=== PATIENT | female | born 1940 | race Caucasian/White ===

== ENCOUNTER → 2016-03-13 | Outpatient (CLI) | payer OTHER | END | disposition home or self-care (01) | LOC: C.LABSPEC 14:09 | PROVIDERS: ATTEND Dermatology | DX: B37.2 Candidiasis of skin and nail (principal); L30.4 Erythema intertrigo ==

== ENCOUNTER → 2016-04-10 | Outpatient (CLI) | payer OTHER ==
[2016-04-10 13:35] LABS: BASO % 0.3 %; BASO ABS # 0.02 K/uL (0-0.2); COMPLETE YES; EOS % 1.7 %; HEMATOCRIT 35.7 % (37-47); IG% 0.1 %; LYMPH ABS # 3.34 K/uL (1.2-3.4); MEAN CELL VOLUME 89.5 fL (80-100); MEAN CORPUSCULAR HEMOGLOBIN 29.8 pg (25-34); MEAN CORPUSCULAR HGB CONC 33.3 g/dl (32-36); MONO % 8.5 %; NEUT % 46.4 %; PLATELET COUNT 200 K/uL (130-400); RED BLOOD COUNT 3.99 M/uL (4.2-5.4); WHITE BLOOD COUNT 7.76 K/uL (4.8-10.8)
[2016-04-10 13:47] LABS: ALT/SGPT 53 U/L (12-78); AST/SGOT 51 U/L (15-37); BLOOD UREA NITROGEN 21 mg/dl (7-18); BUN/CREATININE RATIO 15.3 (10-20); CALCIUM 8.8 mg/dl (8.5-10.1); CARBON DIOXIDE 29 mmol/L (21-32); CHLORIDE 100 mmol/L (98-107); GLUCOSE 158 mg/dl (70-99); POTASSIUM 3.7 mmol/L (3.5-5.1); SODIUM 139 mmol/L (136-145)
[2016-04-10 13:50] LABS: ALB/GLOB RATIO 0.7 (0.9-2); ALKALINE PHOSPHATASE 58 U/L (45-117); CHOLESTEROL 118 mg/dl (0-200); HDL CHOLESTEROL 40 mg/dl; LDL CHOLESTEROL CALCULATED 39 mg/dl; TRIGLYCERIDES 195 mg/dl (0-150); VERY LOW DENSITY LIPOPROT CALC 39 mg/dl
[2016-04-10 14:08] LABS: ESTIMATED AVERAGE GLUCOSE 192 mg/dl; HA1C FLAG Normal (Normal)
== END | disposition home or self-care (01) ==
LOC: C.LABMFLN 11:49
PROVIDERS: ATTEND Family Medicine
DX: Z79.01 Long term (current) use of anticoagulants (principal); Z51.81 Encounter for therapeutic drug level monitoring; I10 Essential (primary) hypertension; E11.9 Type 2 diabetes mellitus without complications; L40.9 Psoriasis, unspecified

== ENCOUNTER → 2016-04-19 | Outpatient (CLI) | payer OTHER ==
[2016-04-19 17:51] LABS: HEMATOCRIT 34.7 % (37-47)
[2016-04-19 18:09] LABS: BLOOD UREA NITROGEN 21 mg/dl (7-18); BUN/CREATININE RATIO 14.7 (10-20)
[2016-04-19 18:11] LABS: TOTAL IRON BINDING CAPACITY 355 mcg/dl (250-450)
--- NOTE | 2016-04-25 06:48 | CODING QUERY MEDICAL NECESSITY ---
SUPPORTING DIAGNOSIS NEEDED Dr. Richard, A supporting diagnosis is required for the test/procedure performed on this patient in order for us to be reimbursed by the patient's insurance. Please provide a supporting diagnosis for the following test/procedure listed below next to the test name along with your signature. *If there is no additional diagnosis for this patient that would support the following test/procedure please document that below next to the test/procedure. Test(s)/Procedure(s) that require a supporting diagnosis: * ([id number]) B12 VITAMIN LEVEL DIAGNOSIS: * ([id number]) FOLATE LEVEL DIAGNOSIS: DATE OF SERVICE: 04/19/16 Provider Signature: Date: Thank you Chacorta Mayorga [facility] Information Management Once completed, please kindly fax back to [phone] For questions please call [phone]
== END | disposition home or self-care (01) ==
LOC: C.LABMFLN 08:33
PROVIDERS: ATTEND Family Medicine
DX: D64.9 Anemia, unspecified (principal); N28.9 Disorder of kidney and ureter, unspecified; G62.9 Polyneuropathy, unspecified; I66.9 Occlusion and stenosis of unspecified cerebral artery; Z79.01 Long term (current) use of anticoagulants; Z51.81 Encounter for therapeutic drug level monitoring

== ENCOUNTER → 2016-08-10 | Outpatient (CLI) | payer OTHER ==
[2016-08-10 13:35] LABS: HEMATOCRIT 38.2 % (37-47)
[2016-08-10 14:10] LABS: ESTIMATED AVERAGE GLUCOSE 200 mg/dl; HA1C FLAG Normal (Normal)
[2016-08-10 14:19] LABS: ALT/SGPT 50 U/L (12-78); AST/SGOT 50 U/L (15-37); BLOOD UREA NITROGEN 13 mg/dl (7-18); BUN/CREATININE RATIO 11.7 (10-20); CALCIUM 9.4 mg/dl (8.5-10.1); CARBON DIOXIDE 30 mmol/L (21-32); CHLORIDE 103 mmol/L (98-107); CHOLESTEROL 123 mg/dl (0-200); GLUCOSE 173 mg/dl (70-99); POTASSIUM 3.9 mmol/L (3.5-5.1); SODIUM 139 mmol/L (136-145); TRIGLYCERIDES 250 mg/dl (0-150); VERY LOW DENSITY LIPOPROT CALC 50 mg/dl
[2016-08-10 14:21] LABS: ALB/GLOB RATIO 0.7 (0.9-2); ALKALINE PHOSPHATASE 59 U/L (45-117); CHOLESTEROL/HDL RATIO 3.2; HDL CHOLESTEROL 39 mg/dl; LDL CHOLESTEROL CALCULATED 34 mg/dl
== END | disposition home or self-care (01) ==
LOC: C.LABMFLN 09:46
PROVIDERS: ATTEND Family Medicine
DX: E78.5 Hyperlipidemia, unspecified (principal); I10 Essential (primary) hypertension; E11.9 Type 2 diabetes mellitus without complications; D64.9 Anemia, unspecified; I66.9 Occlusion and stenosis of unspecified cerebral artery; Z79.01 Long term (current) use of anticoagulants

== ENCOUNTER → 2016-12-15 | Outpatient (CLI) | payer OTHER ==
[2016-12-15 13:04] LABS: BASO % 0.4 %; BASO ABS # 0.03 K/uL (0-0.2); COMPLETE YES; EOS % 1.8 %; HEMATOCRIT 33.9 % (37-47); IG% 0.3 %; LYMPH % 40.4 %; LYMPH ABS # 2.95 K/uL (1.2-3.4); MEAN CELL VOLUME 91.9 fL (80-100); MEAN CORPUSCULAR HEMOGLOBIN 30.1 pg (25-34); MEAN CORPUSCULAR HGB CONC 32.7 g/dl (32-36); MEAN PLATELET VOLUME 10.9 fL (7.4-10.4); MONO % 9.8 %; NEUT % 47.3 %; PLATELET COUNT 184 K/uL (130-400); RED BLOOD COUNT 3.69 M/uL (4.2-5.4); WHITE BLOOD COUNT 7.31 K/uL (4.8-10.8)
[2016-12-15 13:27] LABS: ESTIMATED AVERAGE GLUCOSE 194 mg/dl; HA1C FLAG Normal (Normal)
[2016-12-15 13:29] LABS: ALT/SGPT 58 U/L (12-78); AST/SGOT 53 U/L (15-37); BLOOD UREA NITROGEN 17 mg/dl (7-18); BUN/CREATININE RATIO 14.3 (10-20); CALCIUM 8.9 mg/dl (8.5-10.1); CARBON DIOXIDE 30 mmol/L (21-32); CHLORIDE 100 mmol/L (98-107); CHOLESTEROL 106 mg/dl (0-200); CREATININE 1.18 mg/dl (0.60-1.20); GLUCOSE 191 mg/dl (70-99); POTASSIUM 4.1 mmol/L (3.5-5.1); SODIUM 137 mmol/L (136-145)
[2016-12-15 13:31] LABS: RATIO 131.9 mcg/mg (0-30.0)
[2016-12-15 13:31] LABS: ALB/GLOB RATIO 0.7 (0.9-2); ALKALINE PHOSPHATASE 56 U/L (45-117); CHOLESTEROL/HDL RATIO 2.6; HDL CHOLESTEROL 41 mg/dl; LDL CHOLESTEROL CALCULATED 20 mg/dl; TRIGLYCERIDES 224 mg/dl (0-150); VERY LOW DENSITY LIPOPROT CALC 45 mg/dl
== END | disposition home or self-care (01) ==
LOC: C.LABMFLN 09:09
PROVIDERS: ATTEND Family Medicine
DX: I10 Essential (primary) hypertension (principal); E11.9 Type 2 diabetes mellitus without complications; D64.9 Anemia, unspecified

== ENCOUNTER → 2017-02-12 | Outpatient (CLI) | payer OTHER ==
[2017-02-12 18:04] LABS: BASO % 0.3 %; BASO ABS # 0.02 K/uL (0-0.2); EOS % 1.5 %; HEMATOCRIT 36.4 % (37-47); HEMOGLOBIN 11.9 g/dL (12.0-16.0); IG# 0.01 K/uL (0.00-0.02); LYMPH % 35.8 %; LYMPH ABS # 2.43 K/uL (1.2-3.4); MEAN CELL VOLUME 92.6 fL (80-100); MEAN CORPUSCULAR HEMOGLOBIN 30.3 pg (25-34); MEAN CORPUSCULAR HGB CONC 32.7 g/dl (32-36); MEAN PLATELET VOLUME 10.8 fL (7.4-10.4); MONO % 8.4 %; MONO ABS # 0.57 K/uL (0.11-0.59); NEUT % 53.9 %; NEUT ABS # 3.65 K/uL (1.4-6.5); PLATELET COUNT 196 K/uL (130-400); RED CELL DISTRIBUTION WIDTH CV 14.6 % (11.5-14.5); RED CELL DISTRIBUTION WIDTH SD 50.1 fL (36.4-46.3); WHITE BLOOD COUNT 6.78 K/uL (4.8-10.8)
[2017-02-12 18:13] LABS: ALBUMIN 3.3 gm/dl (3.4-5.0); ALT/SGPT 49 U/L (12-78); CREATININE 1.19 mg/dl (0.60-1.20)
[2017-02-12 18:17] LABS: ALKALINE PHOSPHATASE 57 U/L (45-117); AST/SGOT 41 U/L (15-37)
== END | disposition home or self-care (01) ==
LOC: C.LABMFLN 11:55
PROVIDERS: ATTEND Internal Medicine
DX: L40.8 Other psoriasis (principal); M15.0 Primary generalized (osteo)arthritis; Z79.899 Other long term (current) drug therapy

== ENCOUNTER → 2017-03-16 | Outpatient (CLI) | payer OTHER ==
[2017-03-16 17:45] LABS: HEMATOCRIT 34.6 % (37-47); HEMOGLOBIN 11.3 g/dL (12.0-16.0); MEAN CELL VOLUME 92.5 fL (80-100); MEAN CORPUSCULAR HEMOGLOBIN 30.2 pg (25-34); MEAN CORPUSCULAR HGB CONC 32.7 g/dl (32-36); PLATELET COUNT 188 K/uL (130-400); RED CELL DISTRIBUTION WIDTH CV 14.6 % (11.5-14.5); RED CELL DISTRIBUTION WIDTH SD 49.4 fL (36.4-46.3); WHITE BLOOD COUNT 7.04 K/uL (4.8-10.8)
[2017-03-16 18:02] LABS: ALBUMIN 3.2 gm/dl (3.4-5.0); ALT/SGPT 52 U/L (12-78); AST/SGOT 47 U/L (15-37); CREATININE 1.26 mg/dl (0.60-1.20); TOTAL PROTEIN 7.8 gm/dl (6.4-8.2)
[2017-03-16 18:03] LABS: ALKALINE PHOSPHATASE 54 U/L (45-117)
== END | disposition home or self-care (01) ==
LOC: C.LABMFLN 13:02
PROVIDERS: ATTEND Internal Medicine
DX: Z79.899 Other long term (current) drug therapy (principal); L40.8 Other psoriasis

== ENCOUNTER → 2017-04-02 | Outpatient (CLI) | payer OTHER ==
[2017-04-02 12:28] LABS: BASO % 0.3 %; BASO ABS # 0.02 K/uL (0-0.2); EOS ABS # 0.14 K/uL (0-0.5); HEMATOCRIT 36.9 % (37-47); HEMOGLOBIN 11.9 g/dL (12.0-16.0); IG# 0.02 K/uL (0.00-0.02); LYMPH % 41.1 %; LYMPH ABS # 2.82 K/uL (1.2-3.4); MEAN CELL VOLUME 91.8 fL (80-100); MEAN CORPUSCULAR HEMOGLOBIN 29.6 pg (25-34); MEAN CORPUSCULAR HGB CONC 32.2 g/dl (32-36); MEAN PLATELET VOLUME 10.5 fL (7.4-10.4); MONO % 9.3 %; MONO ABS # 0.64 K/uL (0.11-0.59); NEUT ABS # 3.22 K/uL (1.4-6.5); PLATELET COUNT 205 K/uL (130-400); RED CELL DISTRIBUTION WIDTH CV 14.7 % (11.5-14.5); RED CELL DISTRIBUTION WIDTH SD 49.6 fL (36.4-46.3); WHITE BLOOD COUNT 6.86 K/uL (4.8-10.8)
[2017-04-02 12:56] LABS: ALBUMIN 3.3 gm/dl (3.4-5.0); BLOOD UREA NITROGEN 18 mg/dl (7-18); CARBON DIOXIDE 32 mmol/L (21-32); CREATININE 1.28 mg/dl (0.60-1.20); GLUCOSE 159 mg/dl (70-99); POTASSIUM 3.5 mmol/L (3.5-5.1); SODIUM 135 mmol/L (136-145)
[2017-04-02 13:18] LABS: HEMOGLOBIN A1C 7.7 % (4.5-5.6)
== END | disposition home or self-care (01) ==
LOC: C.LABMFLN 09:00
PROVIDERS: ATTEND Family Medicine
DX: I10 Essential (primary) hypertension (principal); E11.9 Type 2 diabetes mellitus without complications; D64.9 Anemia, unspecified

== ENCOUNTER → 2017-06-12 | Outpatient (CLI) | payer OTHER ==
[2017-06-12 19:20] LABS: CREATININE 1.11 mg/dl (0.60-1.20)
== END | disposition home or self-care (01) ==
LOC: C.LABMFLN 12:42
PROVIDERS: ATTEND Internal Medicine
DX: L04.8 Acute lymphadenitis of other sites (principal); Z79.899 Other long term (current) drug therapy

== ENCOUNTER → 2017-09-03 | Outpatient (CLI) | payer OTHER ==
[2017-09-03 12:52] LABS: BASO % 0.3 %; BASO ABS # 0.02 K/uL (0-0.2); EOS % 1.5 %; HEMATOCRIT 33.6 % (37-47); IG# 0.03 K/uL (0.00-0.02); LYMPH % 36.1 %; LYMPH ABS # 2.46 K/uL (1.2-3.4); MEAN CELL VOLUME 94.4 fL (80-100); MEAN CORPUSCULAR HEMOGLOBIN 30.9 pg (25-34); MEAN CORPUSCULAR HGB CONC 32.7 g/dl (32-36); MEAN PLATELET VOLUME 10.9 fL (7.4-10.4); MONO % 11.6 %; MONO ABS # 0.79 K/uL (0.11-0.59); NEUT % 50.1 %; NEUT ABS # 3.41 K/uL (1.4-6.5); PLATELET COUNT 214 K/uL (130-400); RED CELL DISTRIBUTION WIDTH CV 14.8 % (11.5-14.5); RED CELL DISTRIBUTION WIDTH SD 50.8 fL (36.4-46.3); WHITE BLOOD COUNT 6.81 K/uL (4.8-10.8)
[2017-09-03 13:33] LABS: ALBUMIN 3.3 gm/dl (3.4-5.0); ALKALINE PHOSPHATASE 55 U/L (45-117); ALT/SGPT 35 U/L (12-78); AST/SGOT 34 U/L (15-37); BLOOD UREA NITROGEN 18 mg/dl (7-18); CALCIUM 8.5 mg/dl (8.5-10.1); CARBON DIOXIDE 30 mmol/L (21-32); CHOLESTEROL 127 mg/dl (0-200); CREATININE 1.29 mg/dl (0.60-1.20); GLUCOSE 173 mg/dl (70-99); LDL CHOLESTEROL CALCULATED 27 mg/dl; POTASSIUM 3.7 mmol/L (3.5-5.1); SODIUM 136 mmol/L (136-145)
[2017-09-03 13:34] LABS: HEMOGLOBIN A1C 7.6 % (4.5-5.6)
== END | disposition home or self-care (01) ==
LOC: C.LABMFLN 09:33
PROVIDERS: ATTEND Family Medicine
DX: I10 Essential (primary) hypertension (principal); E11.9 Type 2 diabetes mellitus without complications; E78.5 Hyperlipidemia, unspecified; G45.9 Transient cerebral ischemic attack, unspecified

== ENCOUNTER 2024-09-24 06:12 | Inpatient (IN) ==
--- NOTE | 2024-09-05 09:43 | PAT Medication Instructions ---
Medication Instructions Date of Service September 05, 2024 Home Medications Medication Instructions Recorded blood sugar diagnostic (OneTouch #100 ea 02/09/20 Ultra Blue Test Strip) lancets 33 gauge (OneTouch Delica #100 ea 02/09/20 Lancets) nitroglycerin 0.4 mg sublingual 0.4 mg sublingual Q5M PRN chest 02/09/20 tablet (Nitrostat) pain #20 tabs blood sugar diagnostic #50 ea 05/10/20 naloxone 4 mg/actuation nasal spray 4 mg intranasal Q2M #2 ea 07/11/21 multivitamin (Daily Multi-Vitamin 1 tab PO DAILY #90 tabs 02/12/23 tablet) famotidine 20 mg tablet 20 mg PO BID #60 tabs 05/04/23 triamcinolone acetonide 0.1 % 1 applic topical BID PRN skin 05/04/23 topical cream irritation #453.6 grams albuterol sulfate 90 mcg/actuation 2 puff inhalation Q4H PRN 05/14/23 aerosol inhaler shortness of breath or wheezing #8.5 grams Wheelchair (Manual) #1 ea 08/30/23 lorazepam 0.5 mg tablet 0.5 mg PO DAILY PRN anxiety #7 tabs 11/01/23 omeprazole 40 mg capsule,delayed 40 mg PO QAM #90 caps 12/12/23 release fluticasone 500 mcg-salmeterol 50 1 inh inhalation BID #60 ea 02/25/24 mcg/dose blistr powdr for inhalation atorvastatin 40 mg tablet 40 mg PO QPM #90 tabs 03/05/24 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,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,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 #1 ea 04/25/24 (FreeStyle Ledy 3 [place]) nystatin 100,000 unit/gram topical 1 applic topical BID #30 grams 04/25/24 cream colchicine 0.6 mg capsule 0.6 mg PO BID #60 caps 04/28/24 pen needle, diabetic 32 gauge x #100 ea 05/06/24" duloxetine 60 mg capsule,delayed 60 mg PO HS #90 caps 05/14/24 release glimepiride 1 mg tablet 1 mg PO BID #180 tabs 05/21/24 mupirocin 2 % topical ointment 1 applic topical BID #22 grams 05/21/24 torsemide 20 mg tablet 60 mg (3 x 20 mg) PO QAM #270 tabs 05/22/24 losartan 100 mg tablet 100 mg PO QAM #90 tabs 05/23/24 metoprolol tartrate 100 mg tablet 150 mg (1.5 x 100 mg) PO BID #270 05/26/24 tabs mecobalamin (vitamin B12) 1,000 1,000 mcg sublingual DAILY #30 tabs 06/17/24 mcg disintegrating tablet,sublingual cyanocobalamin (vitamin B-12) 1,000 mcg PO DAILY #30 caps 06/18/24 1,000 mcg capsule clonidine HCl 0.2 mg tablet 0.2 mg PO .COMPLEX #270 tabs 06/25/24 diltiazem HCl 240 mg 480 mg (2 x 240 mg) PO QAM #180 06/25/24 capsule,extended release 24 hr caps tramadol 50 mg tablet See Rx Instructions PO QID PRN 07/08/24 severe pain #240 tabs disposable gloves #200 ea 07/16/24 Incontinence pads, medium #60 ea 07/17/24 Rubber Gloves, medium #1 ea 07/17/24 Wipes #200 ea 07/17/24 adult brief, s/m, disposable #150 ea 07/17/24 chucks #30 ea 07/17/24 apixaban 2.5 mg tablet (Eliquis) 2.5 mg PO BID #60 tabs 07/28/24 magnesium oxide 400 mg PO TID #60 caps 07/28/24 diclofenac sodium 1 % topical gel 4 g topical QID PRN L knee pain 08/20/24 #200 grams cholestyramine 4 gram oral powder 4 g PO DAILY #478.8 grams 08/26/24 (Cholestyramine Light) insulin glargine 100 unit/mL (3 16 unit (0.16 mL) subcut HS #15 mL 09/04/24 mL) subcutaneous pen (Lantus Solostar U-100 Insulin) nitroglycerin 0.4 mg sublingual tablet (Nitrostat) 0.4 mg sublingual Q5M PRN naloxone 4 mg/actuation nasal spray 4 mg intranasal Q2M multivitamin (Daily Multi-Vitamin tablet) 1 tab PO DAILY famotidine 20 mg tablet 20 mg PO BID triamcinolone acetonide 0.1 % topical cream 1 applic topical BID PRN albuterol sulfate 90 mcg/actuation aerosol inhaler 2 puff inhalation Q4H PRN ferrous sulfate 325 mg (65 mg iron) tablet (Anita-Time) 325 mg PO DAILY Healthy Beet 1 gummy PO DAILY acetaminophen 325 mg tablet (Tylenol) 325 mg PO TID docusate sodium 100 mg capsule (Colace) 100 mg PO DAILY PRN lorazepam 0.5 mg tablet 0.5 mg PO DAILY PRN metolazone 2.5 mg tablet 2.5 mg PO 3XWK omeprazole 40 mg capsule,delayed release 40 mg PO QAM fluticasone 500 mcg-salmeterol 50 mcg/dose blistr powdr for inhalation 1 inh in halation BID atorvastatin 40 mg tablet 40 mg PO QPM meclizine 25 mg tablet 25 mg PO BID nystatin 100,000 unit/gram topical cream 1 applic topical BID colchicine 0.6 mg capsule 0.6 mg PO BID duloxetine 60 mg capsule,delayed release 60 mg PO HS glimepiride 1 mg tablet 1 mg PO BID mupirocin 2 % topical ointment 1 applic topical BID torsemide 20 mg tablet 60 mg (3 x 20 mg) PO QAM losartan 100 mg tablet 100 mg PO QAM metoprolol tartrate 100 mg tablet 150 mg (1.5 x 100 mg) PO BID mecobalamin (vitamin B12) 1,000 mcg disintegrating tablet,sublingual 1,000 mcg sublingual DAILY cyanocobalamin (vitamin B-12) 1,000 mcg capsule 1,000 mcg PO DAILY clonidine HCl 0.2 mg tablet 0.2 mg PO .COMPLEX diltiazem HCl 240 mg capsule,extended release 24 hr 480 mg (2 x 240 mg) PO QAM tramadol 50 mg tablet See Rx Instructions PO QID PRN apixaban 2.5 mg tablet (Eliquis) 2.5 mg PO BID magnesium oxide 400 mg PO TID diclofenac sodium 1 % topical gel 4 g topical QID PRN cholestyramine 4 gram oral powder (Cholestyramine Light) 4 g PO DAILY allopurinol 100 mg tablet 100 mg PO QAM cholecalciferol (vitamin D3) 25 mcg (1,000 unit) capsule (Vitamin D3) 1,000 unit PO BID ibandronate 150 mg tablet 150 mg PO MONTHLY insulin glargine 100 unit/mL (3 mL) subcutaneous pen (Lantus Solostar U-100 Insulin) 16 unit (0.16 mL) subcut HS potassium chloride 10 mEq capsule,extended release 10 meq PO QAM Continue as directed nitroglycerin 0.4 mg sublingual tablet (Nitrostat) 0.4 mg sublingual Q5M PRN(if needed) naloxone 4 mg/actuation nasal spray 4 mg intranasal Q2M lorazepam 0.5 mg tablet 0.5 mg PO DAILY PRN(if needed) clonidine HCl 0.2 mg tablet 0.2 mg PO .COMPLEX ASK your prescriber and surgeon apixaban 2.5 mg tablet (Eliquis) 2.5 mg PO BID(in order for spinal or epidural anesthesia, Eliquis needs to be stopped 72 hours/3 days before surgery. Please check if okay with doctor that prescribes this to you) STOP taking 2 weeks before surgery (or as soon as possible if surgery is within 2 weeks) Healthy Beet 1 gummy PO DAILY STOP taking 48 hours before surgery cholestyramine 4 gram oral powder (Cholestyramine Light) 4 g PO DAILY STOP taking 24 hours before surgery triamcinolone acetonide 0.1 % topical cream 1 applic topical BID PRN nystatin 100,000 unit/gram topical cream 1 applic topical BID mupirocin 2 % topical ointment 1 applic topical BID diclofenac sodium 1 % topical gel 4 g topical QID PRN DO NOT take the morning of surgery multivitamin (Daily Multi-Vitamin tablet) 1 tab PO DAILY ferrous sulfate 325 mg (65 mg iron) tablet (Anita-Time) 325 mg PO DAILY docusate sodium 100 mg capsule (Colace) 100 mg PO DAILY PRN metolazone 2.5 mg tablet 2.5 mg PO 3XWK colchicine 0.6 mg capsule 0.6 mg PO BID glimepiride 1 mg tablet 1 mg PO BID torsemide 20 mg tablet 60 mg (3 x 20 mg) PO QAM losartan 100 mg tablet 100 mg PO QAM mecobalamin (vitamin B12) 1,000 mcg disintegrating tablet,sublingual 1,000 mcg sublingual DAILY cyanocobalamin (vitamin B-12) 1,000 mcg capsule 1,000 mcg PO DAILY magnesium oxide 400 mg PO TID cholecalciferol (vitamin D3) 25 mcg (1,000 unit) capsule (Vitamin D3) 1,000 unit PO BID ibandronate 150 mg tablet 150 mg PO MONTHLY potassium chloride 10 mEq capsule,extended release 10 meq PO QAM Take morning of surgery With a small sip of water, OTHERWISE NOTHING TO EAT OR DRINK AFTER MIDNIGHT: famotidine 20 mg tablet 20 mg PO BID albuterol sulfate 90 mcg/actuation aerosol inhaler 2 puff inhalation Q4H PRN(use if needed; please bring with you to hospital day of surgery if possible) acetaminophen 325 mg tablet (Tylenol) 325 mg PO TID omeprazole 40 mg capsule,delayed release 40 mg PO QAM fluticasone 500 mcg-salmeterol 50 mcg/dose blistr powdr for inhalation 1 inh inhalation BID meclizine 25 mg tablet 25 mg PO BID metoprolol tartrate 100 mg tablet 150 mg (1.5 x 100 mg) PO BID diltiazem HCl 240 mg capsule,extended release 24 hr 480 mg (2 x 240 mg) PO QAM tramadol 50 mg tablet See Rx Instructions PO QID PRN(if needed) allopurinol 100 mg tablet 100 mg PO QAM Take evening before surgery famotidine 20 mg tablet 20 mg PO BID albuterol sulfate 90 mcg/actuation aerosol inhaler 2 puff inhalation Q4H PRN(if needed) acetaminophen 325 mg tablet (Tylenol) 325 mg PO TID fluticasone 500 mcg-salmeterol 50 mcg/dose blistr powdr for inhalation 1 inh inhalation BID atorvastatin 40 mg tablet 40 mg PO QPM meclizine 25 mg tablet 25 mg PO BID duloxetine 60 mg capsule,delayed release 60 mg PO HS colchicine 0.6 mg capsule 0.6 mg PO BID glimepiride 1 mg tablet 1 mg PO BID metoprolol tartrate 100 mg tablet 150 mg (1.5 x 100 mg) PO BID tramadol 50 mg tablet See Rx Instructions PO QID PRN(if needed) magnesium oxide 400 mg PO TID cholecalciferol (vitamin D3) 25 mcg (1,000 unit) capsule (Vitamin D3) 1,000 unit PO BID insulin glargine 100 unit/mL (3 mL) subcutaneous pen (Lantus Solostar U-100 Insulin) 16 unit (0.16 mL) subcut HS Other Notes If you have any questions please call us at [phone] or [phone] or [phone] or [phone]
--- NOTE | 2024-09-10 14:27 | Anesthesiology Consultation ---
Date of Service September 10, 2024 Assessment & Plan (1) Encounter for pre-operative examination: Chart Review Chart Review: Acceptable Risk for Surgery (pending PCP clearance, preop UA, and final cardio clearance with response re: CXR ) and Patient seen in Pre Admission Testing - Awaiting PCP clearance 09/16/24 ([place]) - Awaiting UA (could not void at PAT appt- will be taking UA to PCP appt) - Awaiting final cardio clearance (cardio awaiting results of 09/10/24 nuclear stress test) ([place] cardio)- workload note sent regarding preop CXR and 09/10/24 stress test - Check BSG AM DOS Dexcom monitor to UE - Patient is NOT an OPJ candidate - currently 23 hour obs Per PAT appt on 09/10/24, no recent illness/disease exposures, illness related symptoms, or recent illness/disease positive tests. Will leave to surgeon's discretion if preop Covid testing needed Cardiology visit 08/26/24= "here today for routine cardiology follow up.. admitted to [facility] in March after sustaining a fall... scheduled for knee replacement next month... Atrial fibrillation. Permanent... on Eliquis... HR with pEF: Has chronic lower extremity edema. Otherwise, does not appear to be significant hypervolemic... HTN: BP adequately controlled... Dyslipidemia... Edema: Chronic. Preop: Scheduled for knee replacement next month. She is not having angina, however, she has a limited functional status. Will perform ischemic evaluation with nuclear stress test prior to elective surgery. Pending results of the stress test, she is at an acceptable risk for surgery." Teaching & Discussion Pre-Anesthesia Teaching/Discussion Notes: Instructed NPO after midnight before surgery,except medications with 15 cc of water. Medication instructions provided according to the PAT guidelines. History Surgery Operation Date: 09/24/24 07:15 Proposed Procedures p Left Total Knee Arthroplasty - Sidney Joaquin MD Height/Weight Height: 5 ft 2 in Weight: 70.7 kg Allergies Allergy/AdvReac Type Severity Reaction Status Date / Time oxycodone Allergy Severe Generalized Verified 09/04/24 10:21 rash sulfamethoxazole Allergy Severe weakness, Verified 09/04/24 10:21 [From Bactrim] hallucinations trimethoprim [From Bactrim] Allergy Severe weakness, Verified 09/04/24 10:21 hallucinations adhesive tape Allergy Intermediate Rash Verified 09/04/24 10:21 gabapentin [From Neurontin] Allergy Intermediate leg Verified 09/04/24 10:21 swelling lisinopril Allergy Intermediate Rash Verified 09/04/24 10:21 fentanyl Allergy Unknown Unknown Verified 09/04/24 10:21 Medications Home Medications Medication Instructions Recorded Confirmed Last Taken blood sugar diagnostic (OneTouch #100 ea 02/09/20 08/26/24 Unknown Ultra Blue Test Strip) lancets 33 gauge (OneTouch Delica #100 ea 02/09/20 08/26/24 Unknown Lancets) nitroglycerin 0.4 mg sublingual 0.4 mg sublingual Q5M PRN chest 02/09/20 09/04/24 Unknown tablet (Nitrostat) pain #20 tabs blood sugar diagnostic #50 ea 05/10/20 08/26/24 Unknown naloxone 4 mg/actuation nasal spray 4 mg intranasal Q2M #2 ea 07/11/21 09/04/24 Unknown multivitamin (Daily Multi-Vitamin 1 tab PO DAILY #90 tabs 02/12/23 09/04/24 Unknown tablet) famotidine 20 mg tablet 20 mg PO BID #60 tabs 05/04/23 09/04/24 Unknown triamcinolone acetonide 0.1 % 1 applic topical BID PRN skin 05/04/23 09/04/24 Unknown topical cream irritation #453.6 grams albuterol sulfate 90 mcg/actuation 2 puff inhalation Q4H PRN 05/14/23 09/04/24 Unknown aerosol inhaler shortness of breath or wheezing #8.5 grams Wheelchair (Manual) #1 ea 08/30/23 08/26/24 Unknown ferrous sulfate 325 mg (65 mg 325 mg PO DAILY 09/04/23 09/04/24 Unknown iron) tablet (Anita-Time) Healthy Beet 1 gummy PO DAILY 09/28/23 09/04/24 Unknown acetaminophen 325 mg tablet 325 mg PO TID 09/28/23 09/04/24 Unknown (Tylenol) docusate sodium 100 mg capsule 100 mg PO DAILY PRN Constipation 09/28/23 09/04/24 Unknown (Colace) lorazepam 0.5 mg tablet 0.5 mg PO DAILY PRN anxiety #7 tabs 11/01/23 09/04/24 Unknown metolazone 2.5 mg tablet 2.5 mg PO 3XWK 11/02/23 09/04/24 Unknown omeprazole 40 mg capsule,delayed 40 mg PO QAM #90 caps 12/12/23 09/04/24 Unknown release fluticasone 500 mcg-salmeterol 50 1 inh inhalation BID #60 ea 02/25/24 09/04/24 Unknown mcg/dose blistr powdr for inhalation atorvastatin 40 mg tablet 40 mg PO QPM #90 tabs 03/05/24 09/04/24 Unknown 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,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,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 04/25/24 08/26/24 Unknown (FreeStyle Ledy 3 [place]) meclizine 25 mg tablet 25 mg PO BID vertigo 04/25/24 09/04/24 Unknown nystatin 100,000 unit/gram topical 1 applic topical BID #30 grams 04/25/24 09/04/24 Unknown cream colchicine 0.6 mg capsule 0.6 mg PO BID #60 caps 04/28/24 09/04/24 Unknown 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 sensor (FreeStyle 04/30/24 08/26/24 Unknown Ledy 3 Sensor device) pen needle, diabetic 32 gauge x #100 ea 05/06/24 08/26/24 Unknown 5/32" duloxetine 60 mg capsule,delayed 60 mg PO HS #90 caps 05/14/24 09/04/24 Unknown release glimepiride 1 mg tablet 1 mg PO BID #180 tabs 05/21/24 09/04/24 Unknown mupirocin 2 % topical ointment 1 applic topical BID #22 grams 05/21/24 09/04/24 Unknown torsemide 20 mg tablet 60 mg (3 x 20 mg) PO QAM #270 tabs 05/22/24 09/04/24 Unknown losartan 100 mg tablet 100 mg PO QAM #90 tabs 05/23/24 09/04/24 Unknown metoprolol tartrate 100 mg tablet 150 mg (1.5 x 100 mg) PO BID #270 05/26/24 09/04/24 Unknown tabs mecobalamin (vitamin B12) 1,000 1,000 mcg sublingual DAILY #30 tabs 06/17/24 09/04/24 Unknown mcg disintegrating tablet,sublingual cyanocobalamin (vitamin B-12) 1,000 mcg PO DAILY #30 caps 06/18/24 09/04/24 Unknown 1,000 mcg capsule clonidine HCl 0.2 mg tablet 0.2 mg PO .COMPLEX #270 tabs 06/25/24 09/04/24 Unknown diltiazem HCl 240 mg 480 mg (2 x 240 mg) PO QAM #180 06/25/24 09/04/24 Unknown capsule,extended release 24 hr caps tramadol 50 mg tablet See Rx Instructions PO QID PRN 07/08/24 09/04/24 Unknown severe pain #240 tabs disposable gloves #200 ea 07/16/24 08/26/24 Unknown Incontinence pads, medium #60 ea 07/17/24 08/26/24 Unknown Rubber Gloves, medium #1 ea 07/17/24 08/26/24 Unknown Wipes #200 ea 07/17/24 08/26/24 Unknown adult brief, s/m, disposable #150 ea 07/17/24 08/26/24 Unknown chucks #30 ea 07/17/24 08/26/24 Unknown apixaban 2.5 mg tablet (Eliquis) 2.5 mg PO BID #60 tabs 07/28/24 09/04/24 Unknown magnesium oxide 400 mg PO TID #60 caps 07/28/24 09/04/24 Unknown diclofenac sodium 1 % topical gel 4 g topical QID PRN L knee pain 08/20/24 09/04/24 Unknown #200 grams cholestyramine 4 gram oral powder 4 g PO DAILY #478.8 grams 08/26/24 09/04/24 Unknown (Cholestyramine Light) allopurinol 100 mg tablet 100 mg PO QAM 09/04/24 09/04/24 Unknown cholecalciferol (vitamin D3) 25 1,000 unit PO BID 09/04/24 09/04/24 Unknown mcg (1,000 unit) capsule (Vitamin D3) ibandronate 150 mg tablet 150 mg PO MONTHLY 09/04/24 09/04/24 Unknown insulin glargine 100 unit/mL (3 16 unit (0.16 mL) subcut HS #15 mL 09/04/24 Unknown mL) subcutaneous pen (Lantus Solostar U-100 Insulin) potassium chloride 10 mEq 10 meq PO QAM 09/04/24 09/04/24 Unknown capsule,extended release Past Medical History Medical History (Updated 09/10/24 @ 16:08 by Tiffanie Marquez PA-C) (HFpEF) heart failure with preserved ejection fraction EF 50-54% on 08/2023 ECHO Ambulatory dysfunction uses walker or WC (no falls since 03/2024) Asthma rare res inh use breathing stable and controlled Atrial fibrillation no pacer, med controlled > Dr. 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 Bilateral lower extremity edema Compression deformity of vertebra With history of L1 compression fracture T10 compression fracture (new from 11/01/23) noted on 04/02/24 CT scan Controlled type 2 diabetes mellitus with diabetic neuropathy GERD (gastroesophageal reflux disease) well controlled and stable Gout no recent issues History of stroke 2001 > no residual issues HTN (hypertension) Hx MRSA infection 12/2023 > left great toe > resolved Hyperlipemia Iron deficiency anemia [place] disease Usually in LEs (well controlled); can occur in UEs (stable) Osteoporosis Sacral fracture (04/02/24) Sacral/pelvic fracture from a fall- no surgery needed No current issues Exercise / Class Metabolic Activity III < 4 Walking/Shop/Light housework (no chest pain or SOB with short distance ambulation with walker; limited activity; usually uses only wheelchair or walker ) Past Family History Family History Father Myocardial infarction Hx of CABG Mother Alzheimer disease Denies family history of Ovarian cancer Prostate cancer Breast cancer Colorectal cancer Past Surgical History Surgical History H/O right hemicolectomy History of appendectomy History of cardiac cath remote hx > no stents History of cataract surgery bilateral History of cholecystectomy History of colonoscopy History of hysterectomy History of lumbar surgery no fusion History of surgery on arm nerve surgery left History of tonsillectomy and adenoidectomy History of tooth extraction Hx of breast reduction, elective Hx of cervical spine surgery ROM up and down is very limited per pt > unsure of numbers Hx of oral surgery (01/16/23) Excision of Ulcer and Fibroma of Right Lower Lip(Right) - Peter Call, DMD Past Anesthesia History No Hx of Anesthesia Complications (with exception to slow to wake (just groggy- no reintubation or ICU stay) ) and No Family Hx of Anesthesia Complications (with exception to daughter- PONV ) History of PONV History of PONV (presumed ) and Hx of Motion Sickness Social History Smoking Status: Never smoker Do You Dip or Chew Tobacco: No Hx Alcohol Use: No Hx Substance Use: No substance use type: does not use Review of Systems - Hx of snoring- CHAR many years ago- on CPAP - Chronic occ SOB/WILSON- stable/mild per patient Patient denies chest pain, cough, wheezing, palpitations. No hx of seizures, NV. No hx of blood clots or blood transfusions Physical Exam Vital Signs VITALS BP 114/74 P 67 TEMP 98.2 SP02 92% on RA RESP 16 Constitutional no acute distress ENMT Mouth: no TMJ clicking Thyromental Distance: > or= 3.5 Finger Breadths (3.0) Mallampati Class: IV Top front teeth permanent implant Neck + limited neck extension (extension ) Respiratory normal respiratory effort; no respiratory distress Auscultation: lungs clear to auscultation bilaterally; no wheezes Cardiovascular Heart Sounds: + murmur (faint) Vessels: no carotid bruit Irregularly irregular rhythm rate controlled II-III cardiac murmur Musculoskeletal Spine: + pain with cervical ROM Extremities: extremities normal to inspection Psychiatric Orientation: alert Lab Results Anesthesia Preop Results Results Anesthesia Widget: WBC 7.12 K/ul (4.8-10.8) 09/10/24 Hgb 9.1 g/dl (12.0-16.0) L 09/10/24 Hct 29.3 % (37.0-47.0) L 09/10/24 Plt 190 K/uL (130-400) 09/10/24 Na 138 mmol/L (136-145) 09/10/24 K 4.8 mmol/L (3.5-5.1) 09/10/24 Cl 103 mmol/L (98-107) 09/10/24 CO2 33 mmol/L (21-32) H 09/10/24 BUN 19 mg/dl (6-23) 09/10/24 Creat 1.53 mg/dl (0.6-1.2) H 09/10/24 Glucose Level 148 mg/dl (70-99(Fasting)) H 09/10/24 PT 11.9 Seconds (9.0-12.0) 09/10/24 PTT 30 Seconds (21-31) 09/10/24 INR 1.1 (0.9-1.1) 09/10/24 HA1c 5.5 % (4.5-5.6) 09/10/24 Blood Type A Positive 09/10/24 Antibody Screen NEGATIVE 09/10/24 Testing Laboratory Results Anemia - chronic- relatively stable since 02/2024- seeing PCP for preop visit next week; surgeon's office informed of anemia Elevated creatinine chronic and stable Electrocardiogram Date: 09/10/24 Findings: + AFIB @ (64bpm) Low voltage QRS Chest X-Ray Date: 09/10/24 FINDINGS: Stable prominent cardiomegaly with mild pulmonary vascular congestion. There is hazy opacity in the lung bases with blunting of the costophrenic angles. No pneumothorax. IMPRESSION: CHF with small bilateral pleural effusions and mild associated lung base consolidation. (Will send cardiology workload message) Echocardiogram Date: 08/17/23 EF: 50-54% LV Function: normal Other Findings: + diastolic dysfunction; no LVH RV cavity size and systolic function normal Severe LAE Moderate AV sclerosis, aortic stenosis is absent Moderate MR Moderate TR Estimated PASP is 44mmHg Stress Test Date: 09/10/24 Type: nuclear Myocardial perfusion imaging findings: 1. Raw data analysis demonstrates increased GI uptake and patient was imaged with arms at side. There is attenuation secondary to the arm position which varies between rest and stress. Study is technically limited. 2. Gated myocardial perfusion imaging demonstrates normal size LV, normal wall motion, and normal calculated EF of 58%. 3. At rest there is a mild intensity perfusion defect involving the mid to distal lateral and inferolateral myocardium. With Lexiscan infusion these defects resolved. This is most consistent with artifact from her arm placement. There is no evidence of myocardial ischemia or infarction. 4. Study is limited secondary to artifact. It is considered low risk for myocardial ischemia. No prior studies for comparison. Other Testing Holter monitor 12/21/23= Atrial fibrillation with average HR of 107bpm (52-216 bpm) HR >200 bpm at 0740am on 12/16/23 No significant pause Rare PVCs No reported symptoms
--- NOTE | 2024-09-22 13:01 | History & Physical Report ---
Date of Service September 22, 2024 Assessment & Plan (1) Osteoarthritis of left knee: Plan: Severe end-stage patellofemoral osteoarthritis of the left knee and less painful but advanced end-stage osteoarthritis of the right knee as well. Left knee is most symptomatic most painful and has the worst range of motion. Patient's had multiple injections and conservative management for extended period of time. Patient and family want to proceed with knee replacement. She has iron deficiency anemia and medical physicians feel that her hemoglobin will not improved from current status. She was medically cleared to proceed with the surgery. Osteoarthritis type: primary Qualified Code(s): M17.12 - Unilateral primary osteoarthritis, left knee (2) Wheeler disease: History of Present Illness Chief Complaint: Chronic bilateral knee pain left greater than right Primary Care Provider: Dustin Richard MD 84-year-old female with severe end-stage bilateral knee osteoarthritis left knee has more severe bone loss in the patellofemoral joint with lateral tracking patella and bone loss on both sides of the joint with maintained tibiofemoral joint spaces. The right knee is [id number] in the patellofemoral and medial compartment. Patient denies headaches, sweats, fevers, chills, double vision, blurred vision, cough, sore throat, dysphagia, chest pain, wheezing, n/v/d/c, numbness, tingling, fatigue, urinary symptoms, mood disorders. ROS positive for hypertension, high cholesterol, stroke, shortness of breath when lying flat, diabetic on insulin, chronic iron deficiency anemia. Allergies Allergy/AdvReac Type Severity Reaction Status Date / Time oxycodone Allergy Severe Generalized Verified 09/04/24 10:21 rash sulfamethoxazole Allergy Severe weakness, Verified 09/04/24 10:21 [From Bactrim] hallucinations trimethoprim [From Bactrim] Allergy Severe weakness, Verified 09/04/24 10:21 hallucinations adhesive tape Allergy Intermediate Rash Verified 09/04/24 10:21 gabapentin [From Neurontin] Allergy Intermediate leg Verified 09/04/24 10:21 swelling lisinopril Allergy Intermediate Rash Verified 09/04/24 10:21 fentanyl Allergy Unknown Unknown Verified 09/04/24 10:21 Home Medications Medication Instructions Recorded Confirmed Type blood sugar diagnostic (PayDragonuch #100 ea 02/09/20 09/16/24 Rx Ultra Blue Test Strip) lancets 33 gauge (BonushTouch Delica #100 ea 02/09/20 09/16/24 Rx Lancets) nitroglycerin 0.4 mg sublingual 0.4 mg sublingual Q5M PRN chest 02/09/20 09/16/24 Rx tablet (Nitrostat) pain #20 tabs blood sugar diagnostic #50 ea 05/10/20 09/16/24 Rx naloxone 4 mg/actuation nasal spray 4 mg intranasal Q2M #2 ea 07/11/21 09/16/24 Rx multivitamin (Daily Multi-Vitamin 1 tab PO DAILY #90 tabs 02/12/23 09/16/24 Rx tablet) famotidine 20 mg tablet 20 mg PO BID #60 tabs 05/04/23 09/16/24 Rx triamcinolone acetonide 0.1 % 1 applic topical BID PRN skin 05/04/23 09/16/24 Rx topical cream irritation #453.6 grams albuterol sulfate 90 mcg/actuation 2 puff inhalation Q4H PRN 05/14/23 09/16/24 Rx aerosol inhaler shortness of breath or wheezing #8.5 grams Wheelchair (Manual) #1 ea 08/30/23 09/16/24 Rx ferrous sulfate 325 mg (65 mg 325 mg PO DAILY 09/04/23 09/16/24 History iron) tablet (Anita-Time) Healthy Beet 1 gummy PO DAILY 09/28/23 09/16/24 History acetaminophen 325 mg tablet 325 mg PO TID 09/28/23 09/16/24 History (Tylenol) docusate sodium 100 mg capsule 100 mg PO DAILY PRN Constipation 09/28/23 09/16/24 History (Colace) lorazepam 0.5 mg tablet 0.5 mg PO DAILY PRN anxiety #7 tabs 11/01/23 09/16/24 Rx metolazone 2.5 mg tablet 2.5 mg PO 3XWK 11/02/23 09/16/24 History omeprazole 40 mg capsule,delayed 40 mg PO QAM #90 caps 12/12/23 09/16/24 Rx release fluticasone 500 mcg-salmeterol 50 1 inh inhalation BID #60 ea 02/25/24 09/16/24 Rx mcg/dose blistr powdr for inhalation atorvastatin 40 mg tablet 40 mg PO QPM #90 tabs 03/05/24 09/16/24 Rx 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,director [place],cont #1 ea 04/25/24 09/16/24 Rx (FreeStyle Ledy 3 [place]) meclizine 25 mg tablet 25 mg PO BID vertigo 04/25/24 09/16/24 History nystatin 100,000 unit/gram topical 1 applic topical BID #30 grams 04/25/24 09/16/24 Rx cream colchicine 0.6 mg capsule 0.6 mg PO BID #60 caps 04/28/24 09/16/24 Rx 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 sensor (FreeStyle 04/30/24 09/16/24 History Ledy 3 Sensor device) pen needle, diabetic 32 gauge x #100 ea 05/06/24 09/16/24 Rx " duloxetine 60 mg capsule,delayed 60 mg PO HS #90 caps 05/14/24 09/16/24 Rx release glimepiride 1 mg tablet 1 mg PO BID #180 tabs 05/21/24 09/16/24 Rx mupirocin 2 % topical ointment 1 applic topical BID #22 grams 05/21/24 09/16/24 Rx losartan 100 mg tablet 100 mg PO QAM #90 tabs 05/23/24 09/16/24 Rx metoprolol tartrate 100 mg tablet 150 mg (1.5 x 100 mg) PO BID #270 05/26/24 09/16/24 Rx tabs mecobalamin (vitamin B12) 1,000 1,000 mcg sublingual DAILY #30 tabs 06/17/24 09/16/24 Rx mcg disintegrating tablet,sublingual cyanocobalamin (vitamin B-12) 1,000 mcg PO DAILY #30 caps 06/18/24 09/16/24 Rx 1,000 mcg capsule clonidine HCl 0.2 mg tablet 0.2 mg PO .COMPLEX #270 tabs 06/25/24 09/16/24 Rx diltiazem HCl 240 mg 480 mg (2 x 240 mg) PO QAM #180 06/25/24 09/16/24 Rx capsule,extended release 24 hr caps tramadol 50 mg tablet See Rx Instructions PO QID PRN 07/08/24 09/16/24 Rx severe pain #240 tabs disposable gloves #200 ea 07/16/24 09/16/24 Rx Incontinence pads, medium #60 ea 07/17/24 09/16/24 Rx Rubber Gloves, medium #1 ea 07/17/24 09/16/24 Rx Wipes #200 ea 07/17/24 09/16/24 Rx adult brief, s/m, disposable #150 ea 07/17/24 09/16/24 Rx chucks #30 ea 07/17/24 09/16/24 Rx apixaban 2.5 mg tablet (Eliquis) 2.5 mg PO BID #60 tabs 07/28/24 09/16/24 Rx magnesium oxide 400 mg PO TID #60 caps 07/28/24 09/16/24 Rx diclofenac sodium 1 % topical gel 4 g topical QID PRN L knee pain 08/20/24 09/16/24 Rx #200 grams allopurinol 100 mg tablet 100 mg PO QAM 09/04/24 09/16/24 History cholecalciferol (vitamin D3) 25 1,000 unit PO BID 09/04/24 09/16/24 History mcg (1,000 unit) capsule (Vitamin D3) ibandronate 150 mg tablet 150 mg PO MONTHLY 09/04/24 09/16/24 History insulin glargine 100 unit/mL (3 16 unit (0.16 mL) subcut HS #15 mL 09/04/24 09/16/24 Rx mL) subcutaneous pen (Lantus Solostar U-100 Insulin) cholestyramine 4 gram oral powder 4 g PO BID #960 grams 09/16/24 09/16/24 Rx (Cholestyramine Light) torsemide 20 mg tablet 60 mg (3 x 20 mg) PO .COMPLEX #450 09/16/24 09/16/24 Rx tabs potassium chloride 10 mEq 20 meq (2 x 10 mEq) PO QAM #180 09/17/24 Rx capsule,extended release caps cefuroxime axetil 500 mg tablet 500 mg PO BID 5 days #10 tabs 09/18/24 Rx Past Med/Surg History Problem List (Updated 09/22/24 @ 13:09 by Sidney Joaquin MD) UTI (urinary tract infection) (HFpEF) heart failure with preserved ejection fraction Chronic anemia Osteoarthritis of left knee Encounter for pre-operative examination Injury of left great toe Right foot injury Mild cognitive impairment Gout Type 2 diabetes mellitus treated with insulin Atrial fibrillation, permanent Dyspnea and respiratory abnormalities Pain of left hip Hypokalemia (Acute) Ambulatory dysfunction Atopic dermatitis Venous insufficiency Hypomagnesemia Neurologic gait dysfunction Falling Chronic low back pain Bilateral primary osteoarthritis of knee Osteoporosis Leg edema Right shoulder pain Radiculitis, cervical Orthopnea Anticoagulant long-term use Vitamin D deficiency Lumbar spinal stenosis Lumbar radiculopathy Cervical radiculopathy Cerebral vascular disease (Acute) Dyslipidemia (Acute) Benign essential hypertension (Acute) Iron deficiency anemia (Acute) Psoriasis (Acute) Medical History Sacral fracture (04/02/24) Sacral/pelvic fracture from a fall- no surgery needed No current issues Compression deformity of vertebra With history of L1 compression fracture T10 compression fracture (new from 11/01/23) noted on 04/02/24 CT scan Ambulatory dysfunction uses walker or WC (no falls since 03/2024) Wheeler disease Usually in LEs (well controlled); can occur in UEs (stable) Bilateral lower extremity edema (HFpEF) heart failure with preserved ejection fraction EF 50-54% on 08/2023 ECHO Iron deficiency anemia Hx MRSA infection 12/2023 > left great toe > resolved Hyperlipemia HTN (hypertension) Gout no recent issues Osteoporosis Atrial fibrillation no pacer, med controlled > Dr. 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 History of stroke 2001 > no residual issues GERD (gastroesophageal reflux disease) well controlled and stable Asthma rare res inh use breathing stable and controlled Controlled type 2 diabetes mellitus with diabetic neuropathy Surgical History Hx of oral surgery (01/16/23) Excision of Ulcer and Fibroma of Right Lower Lip(Right) - Peter Call, DMD History of colonoscopy History of tooth extraction Hx of breast reduction, elective History of surgery on arm nerve surgery left History of lumbar surgery no fusion Hx of cervical spine surgery ROM up and down is very limited per pt > unsure of numbers History of cardiac cath remote hx > no stents History of cataract surgery bilateral History of tonsillectomy and adenoidectomy History of appendectomy H/O right hemicolectomy History of hysterectomy History of cholecystectomy Family History Father Myocardial infarction Hx of CABG Mother Alzheimer disease Denies family history of Ovarian cancer Prostate cancer Breast cancer Colorectal cancer Social History Smoking Status: Never smoker Second Hand Exposure: Yes (at work many years ago); Do You Dip or Chew Tobacco: No; Hx Alcohol Use: No Hx Substance Use: No Preferred Language: Nigerien Communication Ability: Effective Visual Impairment: Partially Limited Hearing Ability: Normal Automation Technician Required: No Beliefs That Will Affect Care: None marital status: Current Living Situation: Alone Current Living Situation Comment: 2 dogs current occupational status: retired Feels Safe at Home: Yes Childhood Exposure to Second-Hand Smoke: Yes caffeine: Yes (soda - coke) Dental Care, Regularly: Yes Physical Activity Frequency: 3-4 Times per Week Seatbelt Use: always Sunscreen Use: Yes Do you think of yourself as: straight/heterosexual Assistive Devices: Glasses, Walker and Wheelchair Review of Systems All systems reviewed & are unremarkable except as noted in HPI & below Physical Exam Constitutional: WD/WN, vitals as above Respiratory: normal respiratory effort; no respiratory distress Cardiovascular: Rate/Rhythm: regular rate and regular rhythm Musculoskeletal: Right knee is varus left knee neutral bilateral patellofemoral malalignment left greater than right with severe patellofemoral crepitation on the left knee with more limited range of motion on the left knee only 5 through 100 degrees versus 0 through 120 degrees on the right. 3+ pitting edema both legs chronic with good capillary refill. There are some chronic redness to the lymphedema on the right leg. Skin: no rashes, warm and dry Neurologic: normal touch/pain/proprioception Psychiatric: A+Ox3, euthymic affect Results & Data Diagnostic Findings Left knee specifically with severe patellofemoral osteoarthritis ridging eburnated bone bone loss lateral patellofemoral joint [id number].
[2024-09-24] MEDS ORDERED: DEXAMETHASONE SOD INJ 4 MG/ML VIAL ONE (06:31)
[2024-09-24] MEDS ORDERED: BUPIVACAINE 0.5 % 5 MG/1 ML PF 10ML VIAL ONE (06:31)
[2024-09-24] MEDS ORDERED: BUPIVACAINE 0.25% PF 30 ML VIAL ONE (06:31)
[2024-09-24] MEDS ORDERED: EPINEPHrine INJ 1 MG/ML AMP ONE (06:31)
[2024-09-24] MEDS ORDERED: ATROPINE SULFATE 0.1 MG/ML 10ML SYR IV PRN (07:04)
[2024-09-24] MEDS ORDERED: HYDROmorphone INJ 1 MG/ML SYRINGE IV PRN (07:04)
[2024-09-24] MEDS ORDERED: ONDANSETRON INJ 2 MG/ML 2 ML VIAL IV PRN ×2 (07:04→12:35)
--- NOTE | 2024-09-24 07:06 | History & Physical Bridge Note ---
Date of Service September 24, 2024 History & Physical Bridge Note I have examined the patient, reviewed the History & Physical and in the interval since the performance of the History & Physical I have noted the following changes of clinical significance: no changes noted
[2024-09-24] MEDS ORDERED: MIDAZOLAM HCL 1 MG/ML 2ML VIAL ONE (07:07)
[2024-09-24] MEDS: ACETAMINOPHEN 500 MG TAB PO SCH (07:14)
[2024-09-24] MEDS: FAMOTIDINE 20 MG TAB PO SCH ×2 (07:14→14:44)
[2024-09-24] MEDS: LR 500ML BOLUS, THEN 15ML/HR IV SCH (07:15)
[2024-09-24] MEDS: LR 60ML/HR IV SCH (07:15)
[2024-09-24] MEDS: METOCLOPRAMIDE HCL 10 MG TABLET PO SCH (07:17)
[2024-09-24] MEDS: GABAPENTIN 300 MG CAP PO SCH (07:18)
[2024-09-24] MEDS: TRANEXAMIC ACID 1,000 MG **IV Pre-op IV SCH (07:34)
[2024-09-24] MEDS ORDERED: PROPOFOL IV EMULSION 10 MG/ML 20 ML VIAL IV ONE (07:49)
[2024-09-24] MEDS ORDERED: LIDOCAINE 2% 2 ML VIAL/AMP(20MG/ML) INFIL ONE (08:17)
[2024-09-24] MEDS ORDERED: ONDANSETRON INJ 2 MG/ML 2 ML VIAL ONE (08:17)
[2024-09-24] MEDS: ORTHO JOINT ANESTHETIC ONE (08:37)
[2024-09-24] MEDS: ROPIVACAINE 0.5% HCL/PF 246 MG, Ketorolac (*for OR use only*) 30 MG in SODIUM CHLORIDE ... INFIL SCH (09:15)
--- NOTE | 2024-09-24 10:40 | Operative Report ---
Post Operative Report Pre & Post Diagnosis Operation Date: 09/24/24 07:15 Pre-Op Diagnosis: Osteoarthritis of left knee, patellofemoral malalignment, Richardton disease (chronic edema lower extremities) Post-Op Diagnosis: Osteoarthritis of left knee, patellofemoral malalignment ,Richardton disease chronic edema lower extremities) I identified the patient and participated in the time-out.: Yes Procedure Operation Date: 09/24/24 07:15 Actual Procedures p Left Total Knee Arthroplasty(Left), lateral release- Sidney Joaquin MD Surgeon Sidney Joaquin MD Maintenance Service Technician Artem SOTO Estimated Blood Loss 5 Findings Consistent with Post-Op Diagnosis Specimens Bone cuts Drains 2 Hemovac Anesthesia Type MAC Spinal Regional Complications none Disposition Disposition: Recovery Room Indications 84-year-old female with progressive bilateral knee osteoarthritis. She has had extensive conservative management. Patient cannot live with the pain anymore despite multiple injections. Left knee has advanced patellofemoral osteoarthritis with ridging and bone loss. Right knee has patellofemoral and medial compartment osteoarthritis grade 4 Description of Procedure Patient was taken to the operating room placed supine on the operating table and anesthetized under spinal MAC regional block anesthesia. Exam under anesthesia demonstrated chronic edema lower legs no signs of cellulitis. Range of motion 5 through 95 degrees. No instability. Severe patellofemoral crepitation with lateral tracking patella. A pneumatic tourniquet was placed about the thigh of the left lower extremity. The left lower extremity was prepped and draped in usual sterile fashion. The leg was elevated exsanguinated with an Esmarch bandage and the pneumatic tourniquet was raised to 300 mm mercury. An anterior incision was made across the left knee. The skin was incised longitudinally subcutaneous flaps were elevated and an incision was made through the medial retinaculum extending up into the mid third of the quadriceps tendon and extended down to the medial tibial tubercle. Intra-articular findings demonstrated severe patellofemoral osteoarthritis with deep ridging in the trochlea lateral femoral condyle lateral patella with bone loss on the patella and some of the lateral femoral condyle as well. Patient had scarred synovial tissue that was thickened. Had some evidence of hemosiderin in the synovium possibly from bleeding and an area where there was some old bleeding in the suprapatellar pouch area which had scarred synovium around it. This area was excised with electrocautery synovectomy.. The knee was exposed by excising a portion of the infrapatellar fat pad, excising the menisci and anterior and posterior cruciate ligaments. Any inflamed synovial tissue was resected. The fat pad over the anterior femur was resected for placement of the component in that area. The lateral synovial bands were released. The aqua mantis was used for hemostasis. In order to expose the femur we had to address the patella first. Patella was everted and a subperiosteal peel lateral release was performed around the patella. The patella was very thin only 10 mm thick in the area of the bone loss laterally. The patella surface was resected using a freehand cut technique leaving a 12 mm medial thickness of the patella and skim the surface of the 10 mm bone lost area. The patella was measured for a 29 mm implant in the guide was placed and the 3 drill holes were made for the pegs and the excess lateral facet was beveled off to prevent any impingement. The femur was now exposed. The patient matched custom femoral cutting block was pinned in position. The distal femoral cutting block was applied. The distal femoral cut was made with the oscillating saw. The size 6, 4-in-1 cutting block was placed. The anterior and posterior chamfer cuts were made. The tibia was exposed. A custom tibial cutting block was positioned and drill holes were made for the cutting guide. Cutting guide was placed and the proximal cut was made with the oscillating saw. All osteophytes were resected. The lamina genetic supervisor was used to assess ligamentous balance and the ligaments were balanced in extension and flexion. No releases were required. The tibia was reexposed and measured for a size D tibial component. This was maximally externally rotated in line with the tibial tubercle and the fixation pins were drilled. The proximal tibia was fashioned with the drill and punch. The size 6 CR femoral trial was inserted. The trial MC inserts were used. The 10 mm insert gave balanced ligaments through full range of motion. The patella tracked laterally still so I had to do a formal lateral release and I preserved the synovium. Patella tracks centrally afterward. The trials were removed. The orthomix anesthetic cocktail was injected per protocol. The knee was then copiously irrigated with pulsatile lavage saline solution. The final components were cemented with Refobacin bone cement. The final components were[]. After the cement cured with the knee was irrigated with Xperience solution. 2 drains were brought out laterally and connected to a Hemovac. The quadriceps tendon and medial retinaculum were closed with interrupted #2 FiberWire sutures around the medial retinaculum distal quad tendon and the apex of the quad tendon repair. A 0 strata fix running locking suture was then placed from the superior quad split down to the medial retinaculum inferior pole of the patella. additional #2 FiberWire sutures placed at the level of the tibial polyethylene in the medial retinaculum and below that level interrupted #1 Vicryl sutures were placed. The knee was taken through a full range of motion which was 0 through 100 degrees. the repair was secure. Patella tracks centrally. The subcutaneous tissues were closed with 2-0 Vicryl sutures and skin was closed with surgical lucy.A standard sterile dressing was applied and the patient tolerated the procedure well. Artem SOTO my physician assistant front office manager participated as administrative assistant and was an integral part in all aspects of the procedure, he assisted in soft tissue retraction, instrument management ,leg positioning, the closure and will participate in the postoperative care of the patient. I attest to the content of the Intraoperative Record and any orders documented therein. Any exceptions are noted below.
--- NOTE | 2024-09-24 10:51 | XRay Report ---
XR knee LT 1 or 2V routine CLINICAL HISTORY: Surgical Post Op COMPARISON: None FINDINGS: Left knee prosthesis shows no hardware complication. Postoperative drain is present. There is expected soft tissue gas. Skin lucy are present. IMPRESSION: Unremarkable postoperative exam. ACT 112: Negative or not required by law. Electronically signed by: Long Matt M.D. 09/24/2024 10:50 AM
[2024-09-24] MEDS ORDERED: NITROGLYCERIN SL 0.4 MG/TAB TAB SL PRN (12:35)
[2024-09-24] MEDS ORDERED: NON-FORMULARY MEDICATION (Mecobalamin (Vitamin B12) 1,000 mcg tablet,disintegrating) SL SCH (12:35)
[2024-09-24] MEDS ORDERED: METOCLOPRAMIDE HCL INJ 5 MG/ML 2 ML VIAL IV PRN (12:35)
[2024-09-24] MEDS ORDERED: ALUMINUM/MAGNESIUM SUSP 30 ML UDC PO PRN (12:35)
[2024-09-24] MEDS ORDERED: DOCUSATE SODIUM 100 MG CAP PO PRN (12:35)
[2024-09-24] MEDS ORDERED: MAGNESIUM HYDROXIDE SUSP 30 ML UDC PO PRN (12:35)
[2024-09-24] MEDS ORDERED: GLIMEPIRIDE 2 MG TAB PO SCH (12:35)
[2024-09-24] MEDS ORDERED: HYDROmorphone INJ 0.5 MG/0.5 ML SYR IV PRN (12:35)
[2024-09-24] MEDS ORDERED: PHARMACY GLYCEMIC MGMT CONSULT PRN (12:35)
[2024-09-24] MEDS ORDERED: NALOXONE NASAL SPRAY 4 MG ER HOMEPACK SCH (12:35)
[2024-09-24] MEDS ORDERED: NALOXONE HCL 0.4 MG/1 ML VIAL/CARP IV PRN (12:35)
[2024-09-24] MEDS: SODIUM CHLORIDE 0.9% 1,000 ML IV SCH (13:25)
[2024-09-24] MEDS ORDERED: GLUCAGON FOR INJ 1 MG VIAL SQ PRN (13:30)
[2024-09-24] MEDS ORDERED: GLUCOSE 10 TAB/TUBE PO PRN (13:30)
[2024-09-24] MEDS ORDERED: CARBOHYDRATES FOR HYPOGLYCEMIA PO PRN (13:30)
[2024-09-24] MEDS ORDERED: GLUCOSE 40% GEL 15 GM TUBE PO PRN (13:30)
[2024-09-24] MEDS ORDERED: DEXTROSE 50% 50 ML SYRINGE IV PRN (13:30)
--- NOTE | 2024-09-24 14:07 | Anesthesiology Progress Note ---
Date of Service September 24, 2024 Anesthesia Post Procedure Vital Signs Vital Signs: Temp Pulse Resp BP Pulse Ox O2 Del Method O2 Flow Rate 09/24/24 13:20 36.9 C 58 L 18 143/77 H 97 Nasal Cannula 2 09/24/24 12:52 36.9 C 56 L 16 143/77 H 96 Room Air 09/24/24 12:30 Nasal Cannula 2 09/24/24 12:20 36.4 C L 52 L 18 129/67 98 Nasal Cannula 2 09/24/24 12:00 51 L 15 113/70 99 Nasal Cannula 2 09/24/24 11:45 54 L 14 127/59 L 99 Nasal Cannula 2 09/24/24 11:30 54 L 12 125/64 95 Nasal Cannula 2 09/24/24 11:25 56 L 13 122/62 96 Nasal Cannula 2 09/24/24 11:15 50 L 13 124/64 98 Nasal Cannula 2 09/24/24 11:05 55 L 14 116/61 99 Nasal Cannula 2 09/24/24 10:55 58 L 15 130/71 99 Nasal Cannula 2 09/24/24 10:45 36.4 C L 49 L 14 124/58 L 94 Oxymask 6 09/24/24 10:35 54 L 12 114/78 98 Oxymask 10 09/24/24 10:25 69 32 H 114/62 100 Oxymask 10 09/24/24 10:18 36.8 C 71 13 105/56 L 97 Oxymask 10 09/24/24 06:43 36.9 C 74 18 162/85 H 96 Room Air Pain Intensity Left Knee: Pain Intensity: 8 Transfer of Care Handoff Completed per policy Notes Mental Status: alert / awake / arousable Patient Amnestic to Procedure: Yes Nausea / Vomiting: adequately controlled Pain: adequately controlled Airway Patency, RR, SpO2: stable & adequate BP & HR: stable & adequate Hydration State: stable & adequate Neuraxial Anesthesia: was administered and sensory block is resolving Anesthetic Complications: no major complications apparent and Pt Satisfied with anesthetic care
[2024-09-24] MEDS: CYANOCOBALAMIN (B-12) 500 MCG TABLET PO SCH (14:22)
[2024-09-24] MEDS: COLCHICINE 0.6 MG TAB PO SCH (14:22)
[2024-09-24] MEDS: CHOLECALCIFEROL 25 MCG (1000 UNITS) TAB PO SCH (14:22)
[2024-09-24] MEDS: LOSARTAN POTASSIUM 50 MG TAB PO SCH (14:23)
[2024-09-24] MEDS: MUPIROCIN 2% OINT 22 GM TUBE TOP SCH (14:24)
[2024-09-24] MEDS: FLUTICASONE/VILANTEROL 200/25MCG 14 PUFFS/INHALER INH SCH (14:25)
[2024-09-24] MEDS: MAGNESIUM OXIDE 400 MG TAB PO SCH (14:25)
[2024-09-24] MEDS: TRANEXAMIC ACID / 0.7% NACL 1,000 MG/100 ML BAG IV SCH (14:26)
[2024-09-24] MEDS: TORSEMIDE 20 MG TAB PO SCH (14:26)
[2024-09-24] MEDS: NYSTATIN CR 15 GM TUBE EXT SCH (14:27)
[2024-09-24] MEDS: METOPROLOL TARTRATE 50 MG TAB PO SCH (14:27)
[2024-09-24] MEDS: MULTIVITAMIN TAB PO SCH (14:28)
[2024-09-24] MEDS: MECLIZINE HCL 25 MG TAB PO SCH (14:28)
--- NOTE | 2024-09-24 14:38 | Pharmacy Report ---
Pharmacy Glycemic Short Note 2 - Date of Service September 24, 2024 - Glycemic Short BSG Results (Last 24 hours): 09/24/24 09/24/24 09/24/24 06:41 10:22 14:18 POC Glucose 144 H 90 154 H OUTPATIENT ANTIDIABETIC REGIMEN: * Lantus 16 units SC daily * Glimepiride 1 mg PO BIDM HbA1c: 5.5% (09/10/24) ASSESSMENT: * LM is an 84 year old female POD #0 s/p left total knee arthroplasty * Received 4 mg IV dexamethasone in OR, ordered 10 mg IV x 1 tomorrow morning * Blood sugars today so far of 144, 90, and 154 mg/dL PLAN FOR INPATIENT GLYCEMIC CONTROL: * Hold outpatient oral diabetes medications * Basal insulin * Lantus 0-5-10 units SC QDD * Bolus insulin * NovoLog per scale ACHS or Q6hrs while NPO * Goal Range: Low 110 mg/dL - High 140 mg/dL * Correction Factor: 30 mg/dL/unit * Nutritional / Prandial insulin per carb ratio of 1 unit per 10 grams CHO consumed
[2024-09-24] MEDS: POTASSIUM CHLORIDE 10 MEQ TABCR PO SCH (14:43)
[2024-09-24] MEDS: DOCUSATE SODIUM 100 MG CAP PO SCH (14:44)
[2024-09-24] MEDS: HYDROCODONE/ACETAMOPHEN 5/325MG TAB PO PRN (14:44)
[2024-09-24] MEDS: CHOLESTYRAMINE LIGHT 4 GM PKT PO SCH (16:02)
[2024-09-24] MEDS: INSULIN ASPART PER UNIT CHARGE SC SCH (16:03)
[2024-09-24] MEDS: LANTUS PER UNIT CHARGE SC SCH (18:21)
[2024-09-24] MEDS: SENNA 8.6 MG TAB PO SCH (20:11)
[2024-09-24] MEDS: ATORVASTATIN 40 MG TAB PO SCH (20:14)
[2024-09-24] MEDS ORDERED: NON-FORMULARY MEDICATION (Insulin Glargine [Lantus Solostar U-100 Insulin] 100 unit/mL (3 SQ SCH (21:00)
[2024-09-24] MEDS ORDERED: LANTUS PER UNIT CHARGE SC SCH (21:00)
[2024-09-25 07:32] LABS: Hematocrit (blood only) 27.2 % (37.0-47.0); Hemoglobin 8.7 g/dl (12.0-16.0); Mean Corpuscular Hemoglobin 31.4 pg (25.0-34.0); Mean Corpuscular Volume 98.2 fL (80.0-100.0); Platelet Count 206 K/uL (130-400); RDW Standard Deviation 55.7 fL (36.4-46.3); Red Blood Count 2.77 M/uL (4.20-5.40); White Blood Count 15.77 K/ul (4.8-10.8)
--- NOTE | 2024-09-25 07:38 | Hospitalist Consultation ---
Date of Consultation September 25, 2024 Assessment & Plan (1) Type 2 diabetes mellitus treated with insulin: Patient with above diagnosis. A1C is at goal (2) (HFpEF) heart failure with preserved ejection fraction: Patient currently on 2 liters nasal cannula. No crackles heard. will recomend using incentive spirometry. will also obtain X ray. (3) Dyslipidemia: resume home meds (4) Benign essential hypertension: resume BP meds (5) Anticoagulant long-term use: as per primary service. (6) Bilateral primary osteoarthritis of knee: Left bilateral primary OA of knee managed by primary team. History of Present Illness Reason for Consultation: Medical Management Attending Physician: Sidney Joaquin MD History of Present Illness Patient is an 84 yo female with PMH of paroxysmal atrial fibrillation, DMII, hypertension, dyslipidemia presents to the hospital for an elective Total knee replacement of her left knee. Patient currently reports no new symptoms. Patient tolerated the procedure on her knee which was completed yesterday. She is normally not on oxygen, however, she is currently on 2 liters nasal cannula after the procedure yesterday. Allergies Allergy/AdvReac Type Severity Reaction Status Date / Time oxycodone Allergy Severe Generalized Verified 09/24/24 06:40 rash sulfamethoxazole Allergy Severe weakness, Verified 09/24/24 06:40 [From Bactrim] hallucinations trimethoprim [From Bactrim] Allergy Severe weakness, Verified 09/24/24 06:40 hallucinations adhesive tape Allergy Intermediate Rash Verified 09/24/24 06:40 gabapentin [From Neurontin] Allergy Intermediate leg Verified 09/24/24 06:40 swelling lisinopril Allergy Intermediate Rash Verified 09/24/24 06:40 fentanyl Allergy Unknown Unknown Verified 09/24/24 06:40 Home Medications Medication Instructions Recorded Confirmed Type blood sugar diagnostic (Sensors for Medicine and ScienceTouch #100 ea 02/09/20 09/16/24 Rx Ultra Blue Test Strip) lancets 33 gauge (OneTouch Delica #100 ea 02/09/20 09/16/24 Rx Lancets) nitroglycerin 0.4 mg sublingual 0.4 mg sublingual Q5M PRN chest 02/09/20 09/24/24 Rx tablet (Nitrostat) pain #20 tabs blood sugar diagnostic #50 ea 05/10/20 09/16/24 Rx naloxone 4 mg/actuation nasal spray 4 mg intranasal Q2M #2 ea 07/11/21 09/24/24 Rx multivitamin (Daily Multi-Vitamin 1 tab PO DAILY #90 tabs 02/12/23 09/24/24 Rx tablet) famotidine 20 mg tablet 20 mg PO BID #60 tabs 05/04/23 09/24/24 Rx triamcinolone acetonide 0.1 % 1 applic topical BID PRN skin 05/04/23 09/24/24 Rx topical cream irritation #453.6 grams albuterol sulfate 90 mcg/actuation 2 puff inhalation Q4H PRN 05/14/23 09/24/24 Rx aerosol inhaler shortness of breath or wheezing #8.5 grams Wheelchair (Manual) #1 ea 08/30/23 09/16/24 Rx ferrous sulfate 325 mg (65 mg 325 mg PO DAILY 09/04/23 09/24/24 History iron) tablet (Anita-Time) acetaminophen 325 mg tablet 325 mg PO TID 09/28/23 09/24/24 History (Tylenol) docusate sodium 100 mg capsule 100 mg PO DAILY PRN Constipation 09/28/23 09/24/24 History (Colace) lorazepam 0.5 mg tablet 0.5 mg PO DAILY PRN anxiety #7 tabs 11/01/23 09/24/24 Rx metolazone 2.5 mg tablet 2.5 mg PO 3XWK 11/02/23 09/24/24 History omeprazole 40 mg capsule,delayed 40 mg PO QAM #90 caps 12/12/23 09/24/24 Rx release fluticasone 500 mcg-salmeterol 50 1 inh inhalation BID #60 ea 02/25/24 09/24/24 Rx mcg/dose blistr powdr for inhalation atorvastatin 40 mg tablet 40 mg PO QPM #90 tabs 03/05/24 09/24/24 Rx 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,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,cont #1 ea 04/25/24 09/16/24 Rx (FreeStyle Ledy 3 [place]) meclizine 25 mg tablet 25 mg PO BID vertigo 04/25/24 09/24/24 History nystatin 100,000 unit/gram topical 1 applic topical BID #30 grams 04/25/24 09/24/24 Rx cream colchicine 0.6 mg capsule 0.6 mg PO BID #60 caps 04/28/24 09/24/24 Rx 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 sensor (FreeStyle 04/30/24 09/16/24 History Ledy 3 Sensor device) pen needle, diabetic 32 gauge x #100 ea 05/06/24 09/16/24 Rx 5/32" duloxetine 60 mg capsule,delayed 60 mg PO HS #90 caps 05/14/24 09/24/24 Rx release glimepiride 1 mg tablet 1 mg PO BID #180 tabs 05/21/24 09/24/24 Rx mupirocin 2 % topical ointment 1 applic topical BID #22 grams 05/21/24 09/24/24 Rx losartan 100 mg tablet 100 mg PO QAM #90 tabs 05/23/24 09/24/24 Rx metoprolol tartrate 100 mg tablet 150 mg (1.5 x 100 mg) PO BID #270 05/26/24 09/24/24 Rx tabs mecobalamin (vitamin B12) 1,000 1,000 mcg sublingual DAILY #30 tabs 06/17/24 09/24/24 Rx mcg disintegrating tablet,sublingual cyanocobalamin (vitamin B-12) 1,000 mcg PO DAILY #30 caps 06/18/24 09/24/24 Rx 1,000 mcg capsule clonidine HCl 0.2 mg tablet 0.2 mg PO .COMPLEX #270 tabs 06/25/24 09/24/24 Rx diltiazem HCl 240 mg 480 mg (2 x 240 mg) PO QAM #180 06/25/24 09/24/24 Rx capsule,extended release 24 hr caps tramadol 50 mg tablet See Rx Instructions PO QID PRN 07/08/24 09/24/24 Rx severe pain #240 tabs disposable gloves #200 ea 07/16/24 09/16/24 Rx Incontinence pads, medium #60 ea 07/17/24 09/16/24 Rx Rubber Gloves, medium #1 ea 07/17/24 09/16/24 Rx Wipes #200 ea 07/17/24 09/16/24 Rx adult brief, s/m, disposable #150 ea 07/17/24 09/16/24 Rx chucks #30 ea 07/17/24 09/16/24 Rx apixaban 2.5 mg tablet (Eliquis) 2.5 mg PO BID #60 tabs 07/28/24 09/24/24 Rx magnesium oxide 400 mg PO TID #60 caps 07/28/24 09/24/24 Rx diclofenac sodium 1 % topical gel 4 g topical QID PRN L knee pain 08/20/24 09/24/24 Rx #200 grams allopurinol 100 mg tablet 100 mg PO QAM 09/04/24 09/24/24 History cholecalciferol (vitamin D3) 25 1,000 unit PO BID 09/04/24 09/24/24 History mcg (1,000 unit) capsule (Vitamin D3) ibandronate 150 mg tablet 150 mg PO MONTHLY 09/04/24 09/24/24 History insulin glargine 100 unit/mL (3 16 unit (0.16 mL) subcut HS #15 mL 09/04/24 09/24/24 Rx mL) subcutaneous pen (Lantus Solostar U-100 Insulin) cholestyramine 4 gram oral powder 4 g PO BID #960 grams 09/16/24 09/24/24 Rx (Cholestyramine Light) torsemide 20 mg tablet 60 mg (3 x 20 mg) PO .COMPLEX #450 09/16/24 09/24/24 Rx tabs potassium chloride 10 mEq 20 meq (2 x 10 mEq) PO QAM #180 09/17/24 09/24/24 Rx capsule,extended release caps cefadroxil 500 mg capsule 500 mg PO Q12H #28 caps 09/24/24 Rx hydrocodone 5 mg-acetaminophen 325 1 tab PO Q4H PRN pain #30 tabs 09/24/24 Rx mg tablet Patient History Medical History Sacral fracture (04/02/24) Sacral/pelvic fracture from a fall- no surgery needed No current issues Compression deformity of vertebra With history of L1 compression fracture T10 compression fracture (new from 11/01/23) noted on 04/02/24 CT scan Ambulatory dysfunction uses walker or WC (no falls since 03/2024) [place] disease Usually in LEs (well controlled); can occur in UEs (stable) Bilateral lower extremity edema (HFpEF) heart failure with preserved ejection fraction EF 50-54% on 08/2023 ECHO Iron deficiency anemia Hx MRSA infection 12/2023 > left great toe > resolved Hyperlipemia HTN (hypertension) Gout no recent issues Osteoporosis Atrial fibrillation no pacer, med controlled > Dr. 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 History of stroke 2001 > no residual issues GERD (gastroesophageal reflux disease) well controlled and stable Asthma rare res inh use breathing stable and controlled Controlled type 2 diabetes mellitus with diabetic neuropathy Surgical History Hx of oral surgery (01/16/23) Excision of Ulcer and Fibroma of Right Lower Lip(Right) - Peter Call, DMD History of colonoscopy History of tooth extraction Hx of breast reduction, elective History of surgery on arm nerve surgery left History of lumbar surgery no fusion Hx of cervical spine surgery ROM up and down is very limited per pt > unsure of numbers History of cardiac cath remote hx > no stents History of cataract surgery bilateral History of tonsillectomy and adenoidectomy History of appendectomy H/O right hemicolectomy History of hysterectomy History of cholecystectomy Family History Father Myocardial infarction Hx of CABG Mother Alzheimer disease Denies family history of Ovarian cancer Prostate cancer Breast cancer Colorectal cancer Social History Smoking Status: Never smoker Second Hand Exposure: Yes (at work many years ago); Do You Dip or Chew Tobacco: No; Tobacco Cessation Education Requested by Patient: No Hx Alcohol Use: No Hx Substance Use: No Preferred Language: Croatian Communication Ability: Effective Visual Impairment: Partially Limited Hearing Ability: Normal 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: No Beliefs That Will Affect Care: None marital status: Current Living Situation: Alone Current Living Situation Comment: 2 dogs current occupational status: retired Other Information That Helps Us Care for You: No Feels Safe at Home: Yes Safety Concerns: Feels Safe At This Time Childhood Exposure to Second-Hand Smoke: Yes caffeine: Yes (soda - coke) Dental Care, Regularly: Yes Physical Activity Frequency: 3-4 Times per Week Seatbelt Use: always Sunscreen Use: Yes Do you think of yourself as: straight/heterosexual Assistive Devices: Glasses, Walker and Wheelchair Review of Systems Constitutional: no fever and no body aches Eyes: no blind spots and no discharge Ear, Nose, Mouth, Throat: no ear pain and no tinnitus Respiratory: no cough and no dyspnea Cardiovascular: no chest pain and no radiating jaw, neck or arm pain Gastrointestinal: no abdominal pain and no early satiety Genitourinary: no dysuria Musculoskeletal: no loss of height Integumentary: no acne and no lesions Neurologic: + unsteadiness (due to left knee OSTEOAR THIRTIS) Psychiatric: no behavioral changes and no anhedonia Endocrine: no fatigue and no polyphagia Hematologic / Lymphatic: no easy bleeding Allergy / Immunological: no GI upset with certain foods Physical Exam Constitutional: WD/WN, vitals as above Eyes: PERRL, conjunctivae normal, anicteric sclerae ENMT: external ear and nose normal, oropharynx normal Neck: trachea midline, no thyromegaly Respiratory: normal respiratory effort, lungs clear to auscultation Cardiovascular: RRR, no murmur, no edema Gastrointestinal (Abdomen): normal bowel sounds, soft, nontender, no hepatosplenomegaly Skin: no rashes, warm and dry Neurologic: PERRL, EOMI, accommodation nl, no face palsy, no dysarthria Psychiatric: A+Ox3, euthymic affect Lymphatic: no cervical or axillary lymphadenopathy Results & Data Results & Data Vital Signs (Past 12 Hours) Vital Signs Temp Pulse Resp BP BP Pulse Ox O2 Del Method 09/25/24 07:28 37.1 C 90 16 143/83 H 97 Nasal Cannula 09/25/24 03:56 37 C 82 18 124/75 93 Nasal Cannula 09/25/24 00:00 37 C 60 18 124/74 95 Nasal Cannula 09/24/24 20:10 Nasal Cannula 09/24/24 20:09 36.8 C 55 L 18 104/59 L 94 Nasal Cannula O2 Flow Rate 09/25/24 07:28 09/25/24 03:56 2 09/25/24 00:00 2 09/24/24 20:10 2 09/24/24 20:09 2 PG Care Time/CCT Total # of Minutes Spent Total Time Spent with Patient: Total time spent is greater than 50% in coordination of care (as documented) at patient's floor/unit and/or counseling patient: Coding Level of Care Code 86390 IN/OBS CONSULT LVL 4,60M Diagnoses Type 2 diabetes mellitus treated with insulin E11.9; Z79.4 (HFpEF) heart failure with preserved ejection fraction I50.30 Dyslipidemia E78.5 Benign essential hypertension I10 Anticoagulant long-term use Z79.01 Bilateral primary osteoarthritis of knee M17.0
[2024-09-25 07:46] LABS: Anion Gap 6.0 (3-11); Blood Urea Nitrogen 32.0 mg/dl (6-23); Calcium 8.9 mg/dl (8.6-10.3); Carbon Dioxide 34.0 mmol/L (21-32); Chloride 99.0 mmol/L (98-107); Creatinine Clr Calc Pharmacy 16.4 ml/min; Glucose 102.0 mg/dl (70-99(Fasting)); Potassium 5.0 mmol/L (3.5-5.1); Sodium 139.0 mmol/L (136-145)
--- NOTE | 2024-09-25 07:51 | Orthopedic Progress Note ---
Date of Service September 25, 2024 Assessment & Plan (1) Osteoarthritis of left knee: Plan: Postop day 1 left knee replacement. Mild confusion likely anesthesia related. Not unusual for her age. Observation for now. Will need to continue Hemovac drain until flow decreases. Patient has chronic anemia and will have to monitor hemoglobin hematocrit but right now no requirement for any transfusion. Start PT. Patient is going to require transfer to a rehabilitation hospital for rehabilitation postop. Continue admission until stable for transfer. Severe end-stage patellofemoral osteoarthritis of the left knee and less painful but advanced end-stage osteoarthritis of the right knee as well. Left knee is most symptomatic most painful and has the worst range of motion. Patient's had multiple injections and conservative management for extended period of time. Patient and family want to proceed with knee replacement. She has iron deficiency anemia and medical physicians feel that her hemoglobin will not improved from current status. She was medically cleared to proceed with the surgery. (2) [place] disease: Admission and Anticipated Discharge Date Admission Date: September 24, 2024 Subjective No pain yet feels well. Review of Systems Review of Systems: No chest pain shortness of breath. Physical Exam Musculoskeletal: Dressing dry and intact. Still some drainage from Hemovac. Distal circulation sensorimotor exam intact. Independent straight leg raise. Psychiatric: Mild confusion but awake and alert conversing well. Answers commands well. Results & Data Vital Signs (Past 12 Hours) Vital Signs Temp Pulse Resp BP BP Pulse Ox O2 Del Method 09/25/24 07:28 37.1 C 90 16 143/83 H 97 Nasal Cannula 09/25/24 03:56 37 C 82 18 124/75 93 Nasal Cannula 09/25/24 00:00 37 C 60 18 124/74 95 Nasal Cannula 09/24/24 20:10 Nasal Cannula 09/24/24 20:09 36.8 C 55 L 18 104/59 L 94 Nasal Cannula O2 Flow Rate 09/25/24 07:28 09/25/24 03:56 2 09/25/24 00:00 2 09/24/24 20:10 2 09/24/24 20:09 2 Laboratory Results Hemoglobin 8.7, BUN/creatinine pending Diagnostic Findings Well aligned left total knee replacement (1) Osteoarthritis of left knee Osteoarthritis type: primary Qualified Code(s): M17.12 - Unilateral primary osteoarthritis, left knee
[2024-09-25] MEDS: dexAMETHasone 10 MG in SYRINGE 0 ML IV SCH (08:21)
[2024-09-25] MEDS: APIXABAN 2.5 MG TAB PO SCH (08:31)
[2024-09-25] MEDS: FERROUS SULFATE 325 MG TAB PO SCH (08:33)
--- NOTE | 2024-09-25 09:13 | XRay Report ---
XR chest 1V portable CLINICAL HISTORY: hypoxia COMPARISON STUDY: 09/10/2024 FINDINGS: Stable prominent cardiomegaly with mild pulmonary vascular congestion. Stable mild hazy opa city in the lung bases with blunting of the costophrenic angles. No pneumothorax. IMPRESSION: Stable exam with CHF and mild hazy opacity in the lung bases which could represent small pleural effusions or consolidation. ACT 112: Negative or not required by law. Electronically signed by: Long Matt M.D. 09/25/2024 9:12 AM
[2024-09-25] MEDS: LANTUS PER UNIT CHARGE SC ONE (12:00)
[2024-09-25] MEDS: LORazepam 0.5 MG TAB PO PRN (19:45)
[2024-09-25] MEDS: KETOROLAC TROMETHAMINE 15 MG/ML VIAL IV PRN (21:26)
[2024-09-26] MEDS ORDERED: MELATONIN 3 MG TAB PO PRN (00:01)
[2024-09-26] MEDS: diphenhydrAMINE Capsule 25 MG CAP PO PRN (00:07)
[2024-09-26] MEDS: MELATONIN 3 MG TAB PO STA (00:07)
[2024-09-26 07:20] LABS: Hematocrit (blood only) 24.5 % (37.0-47.0); Hemoglobin 8.1 g/dl (12.0-16.0); Mean Corpuscular Hemoglobin 32.0 pg (25.0-34.0); Mean Corpuscular Volume 96.8 fL (80.0-100.0); Platelet Count 175 K/uL (130-400); RDW Standard Deviation 54.4 fL (36.4-46.3); Red Blood Count 2.53 M/uL (4.20-5.40); White Blood Count 12.82 K/ul (4.8-10.8)
[2024-09-26 07:40] LABS: Anion Gap 4.0 (3-11); Blood Urea Nitrogen 40.0 mg/dl (6-23); Calcium 8.4 mg/dl (8.6-10.3); Carbon Dioxide 35.0 mmol/L (21-32); Chloride 98.0 mmol/L (98-107); Creatinine Clr Calc Pharmacy 16.5 ml/min; Glucose 105.0 mg/dl (70-99(Fasting)); Potassium 4.3 mmol/L (3.5-5.1); Sodium 137.0 mmol/L (136-145)
--- NOTE | 2024-09-26 09:00 | Pharmacy Report ---
Pharmacy Glycemic Short Note 2 - Date of Service September 26, 2024 - Glycemic Short BSG Results (Last 24 hours): 09/25/24 09/25/24 09/25/24 11:11 16:49 20:02 Glucose POC Glucose 175 H 120 H 125 H 09/26/24 09/26/24 06:44 07:51 Glucose 105 H POC Glucose 101 H OUTPATIENT ANTIDIABETIC REGIMEN: * Lantus 16 units SC daily * Glimepiride 1 mg PO BIDM HbA1c: 5.5% (09/10/24) ASSESSMENT: 09/26/24: * POD #2 s/p left TKA * Blood sugars ranging 115-175 mg/dL yesterday * Last dose of dexamethasone IV yesterday AM * Loosen Novolog today w/ reduction in basal (scale this evening) 09/24/24: * LM is an 84 year old female POD #0 s/p left total knee arthroplasty * Received 4 mg IV dexamethasone in OR, ordered 10 mg IV x 1 tomorrow morning * Blood sugars today so far of 144, 90, and 154 mg/dL PLAN FOR INPATIENT GLYCEMIC CONTROL: * Hold outpatient oral diabetes medications * Basal insulin * Lantus 0-4-8 units SC HS (see EHR for details) * Bolus insulin * NovoLog per scale ACHS or Q6hrs while NPO * Goal Range: Low 110 mg/dL - High 140 mg/dL * Correction Factor: 35 mg/dL/unit * Nutritional / Prandial insulin per carb ratio of 1 unit per 12 grams CHO consumed
--- NOTE | 2024-09-26 10:06 | Orthopedic Progress Note ---
Date of Service September 26, 2024 Assessment & Plan (1) Osteoarthritis of left knee: Plan: Postop day 2 left knee replacement. Mild confusion likely anesthesia related. Somnolent this morning. Not unusual for her age. Observation for now. Hemovac drain was no longer in place. Patient has chronic anemia and will have to monitor hemoglobin hematocrit but right now no requirement for any transfusion. PT/OT DVT prophylaxisTED stockings, Eliquis 2.5 mg twice daily Discharge planningpatient is going to require transfer to a rehabilitation hospital for rehabilitation postop. Awaiting acceptance to a rehab facility or a half-way facility for rehab. When patient is accepted and she is stable medically, she will be able to be discharged. Severe end-stage patellofemoral osteoarthritis of the left knee and less painful but advanced end-stage osteoarthritis of the right knee as well. Left knee is most symptomatic most painful and has the worst range of motion. Patient's had multiple injections and conservative management for extended period of time. Patient and family want to proceed with knee replacement. She has iron deficiency anemia and medical physicians feel that her hemoglobin will not improved from current status. She was medically cleared to proceed with the surgery. (2) [place] disease: Admission and Anticipated Discharge Date Admission Date: September 25, 2024 Subjective Patient is 2 days postop from a left total knee arthroplasty. Very somnolent during the exam but is able to answer questions appropriately. States the pain is controlled in the left knee. Physical Exam Constitutional: WD/WN, vitals as above no acute distress (Somnolent during visit) Musculoskeletal: Knee: + surgical incision (Left knee dressing is C/D/I); no deformity, no skin erythema and no ecchymosis Skin: no rashes, warm and dry Trauma: no evidence of skin trauma Neurologic: normal touch/pain/proprioception Results & Data Vital Signs (Past 12 Hours) Vital Signs Temp Pulse Resp BP Pulse Ox O2 Del Method 09/25/24 22:44 37.2 C 96 H 16 123/77 90 Room Air Laboratory Results Laboratory Tests 09/26/24 06:44 Hgb 8.1 L Hct 24.5 L BUN 40 H Creatinine 2.33 H (1) Osteoarthritis of left knee Osteoarthritis type: primary Qualified Code(s): M17.12 - Unilateral primary osteoarthritis, left knee
[2024-09-26] MEDS: SODIUM CHLORIDE 0.9% 500 ML IV SCH (15:28)
--- NOTE | 2024-09-26 17:38 | Hospitalist Progress Note ---
Date of Service September 26, 2024 Assessment & Plan (1) Type 2 diabetes mellitus treated with insulin: Plan: Patient with above diagnosis. A1C is at goal (2) (HFpEF) heart failure with preserved ejection fraction: Plan: Patient currently on 2 liters nasal cannula. No crackles heard. will recomend using incentive spirometry. will also obtain X ray. (3) Dyslipidemia: Plan: resume home meds (4) Benign essential hypertension: Plan: resume BP meds (5) Anticoagulant long-term use: Plan: as per primary service. (6) Bilateral primary osteoarthritis of knee: Plan: Left bilateral primary OA of knee managed by primary team. Plan Metabolic encephalopathy likely secondary to surgery. will monitor appears to be improving will try to limit narcotics Anemia likely acute blood loss from surgery will continue to trend, may sign off case if these 2 issues stabilize Admission and Anticipated Discharge Date Admission Date: September 25, 2024 Subjective Patient is awake, and less confused per family. Family reports that she became confused in the evening prior and was confused this AM, however this has improved in the afternoon. Physical Exam Constitutional: WD/WN, vitals as above Eyes: PERRL, conjunctivae normal, anicteric sclerae ENMT: external ear and nose normal, oropharynx normal Neck: trachea midline, no thyromegaly Respiratory: normal respiratory effort, lungs clear to auscultation Cardiovascular: RRR, no murmur, no edema Gastrointestinal (Abdomen): normal bowel sounds, soft, nontender, no hepatosplenomegaly Skin: no rashes, warm and dry Neurologic: PERRL, EOMI, accommodation nl, no face palsy, no dysarthria Psychiatric: A+Ox3, euthymic affect Lymphatic: no cervical or axillary lymphadenopathy PG Care Time/CCT Total # of Minutes Spent Total Time Spent with Patient: Total time spent is greater than 50% in coordination of care (as documented) at patient's floor/unit and/or counseling patient: Coding Level of Care Code 53689 SUB INP/OBS CARE 3/50MIN Diagnoses Type 2 diabetes mellitus treated with insulin E11.9; Z79.4 (HFpEF) heart failure with preserved ejection fraction I50.30 Dyslipidemia E78.5 Benign essential hypertension I10 Anticoagulant long-term use Z79.01 Bilateral primary osteoarthritis of knee M17.0
[2024-09-26] MEDS: LANTUS PER UNIT CHARGE SC SCH (21:31)
[2024-09-27 07:16] LABS: Hematocrit (blood only) 25.9 % (37.0-47.0); Hemoglobin 8.4 g/dl (12.0-16.0); Mean Corpuscular Hemoglobin 31.5 pg (25.0-34.0); Mean Corpuscular Volume 97.0 fL (80.0-100.0); Platelet Count 186 K/uL (130-400); RDW Standard Deviation 54.4 fL (36.4-46.3); Red Blood Count 2.67 M/uL (4.20-5.40); White Blood Count 11.36 K/ul (4.8-10.8)
[2024-09-27 07:35] LABS: Anion Gap 5.0 (3-11); Blood Urea Nitrogen 46.0 mg/dl (6-23); Calcium 8.3 mg/dl (8.6-10.3); Carbon Dioxide 33.0 mmol/L (21-32); Chloride 99.0 mmol/L (98-107); Creatinine Clr Calc Pharmacy 15.9 ml/min; Glucose 115.0 mg/dl (70-99(Fasting)); Potassium 3.8 mmol/L (3.5-5.1); Sodium 137.0 mmol/L (136-145)
--- NOTE | 2024-09-27 08:31 | Orthopedic Progress Note ---
Date of Service September 27, 2024 Assessment & Plan (1) Osteoarthritis of left knee: Plan: Postop day 3 left knee replacement. Much more alert today. Sitting up in bed eating breakfast during visit. Patient has chronic anemia and will have to monitor hemoglobin hematocrit but right now no requirement for any transfusion. Hemoglobin has improved today. PT/OT DVT prophylaxisTED stockings, Eliquis 2.5 mg twice daily Discharge planningpeer to peer was done yesterday for [facility] but was still denied. Insurance authorized a [facility] facility stay for rehabilitation. The patient is able to be accepted to [facility] on 09/29/2024. The patient seems to be doing well and improving. The plan will be to discharge in 2 days if she continues to progress. (2) [place] disease: Admission and Anticipated Discharge Date Admission Date: September 25, 2024 Subjective Patient is doing well today. Pain is controlled in the knee. States she has been up walking from time to time. No complaints today. Physical Exam Constitutional: WD/WN, vitals as above no acute distress (Much more alert today. Sitting in bed eating breakfast.) Musculoskeletal: Knee: + surgical incision (Left knee incision is well- approximated. No drainage. No erythema.); no deformity, no skin erythema and no ecchymosis Skin: no rashes, warm and dry Trauma: no evidence of skin trauma Neurologic: normal touch/pain/proprioception (Active dorsiflexion of left ankle intact.) Psychiatric: A+Ox3, euthymic affect Speech: normal rate/rhythm/volume of speech Results & Data Vital Signs (Past 12 Hours) Vital Signs Temp Pulse Resp BP Pulse Ox O2 Del Method 09/27/24 07:20 36.8 C 111 H 15 165/117 H 96 Room Air 09/26/24 23:01 36.7 C 91 H 18 138/87 96 Room Air Laboratory Results Laboratory Tests 09/27/24 07:03 WBC 11.36 H Hgb 8.4 L Hct 25.9 L BUN 46 H Creatinine 2.41 H (1) Osteoarthritis of left knee Osteoarthritis type: primary Qualified Code(s): M17.12 - Unilateral primary osteoarthritis, left knee
[2024-09-27] MEDS ORDERED: CARBOHYDRATES FOR HYPOGLYCEMIA PO PRN (09:09)
[2024-09-27] MEDS ORDERED: DEXTROSE 50% 50 ML SYRINGE IV PRN (09:09)
[2024-09-27] MEDS ORDERED: GLUCOSE 10 TAB/TUBE PO PRN (09:09)
[2024-09-27] MEDS ORDERED: GLUCAGON FOR INJ 1 MG VIAL SQ PRN (09:09)
[2024-09-27] MEDS ORDERED: GLUCOSE 40% GEL 15 GM TUBE PO PRN (09:09)
[2024-09-27] MEDS: SODIUM CHLORIDE 0.9% 1,000 ML IV SCH (11:39)
[2024-09-27] MEDS: INSULIN ASPART PER UNIT CHARGE SC SCH (12:31)
--- NOTE | 2024-09-27 13:08 | Hospitalist Progress Note ---
Date of Service September 27, 2024 Assessment & Plan (1) Intravascular volume depletion: Plan: Most likely cause of elevated creatinine and tachycardia. Diuretics are on hold. Start IV fluids. Monitor urine output. (2) Acute kidney injury: Plan: Creatinine has increased to 2.4. IV fluids have been ordered. Monitor urine output. Serial labs (3) Atrial fibrillation, permanent: Plan: Tachycardia probably from intravascular volume depletion. Continue metoprolol and diltiazem therapy. IV fluids. (4) Type 2 diabetes mellitus treated with insulin: Plan: Glucose 115 this morning, September 27. Continue ADA diet, sliding scale coverage, basal insulin therapy Plan Anticipate eventual discharge to rehab by primary service sometime next week Admission and Anticipated Discharge Date Admission Date: September 25, 2024 Subjective Alert and oriented. No complaints. Tachycardia and acute renal failure probably from intravascular volume depletion. Metolazone discontinued. ARB and torsemide previously discontinued. IV fluids ordered. Monitor urine output. Serial labs. Review of Systems 2 Review of Systems: Constitutionalno fever or chills ENTno blurred vision, no double vision, no epistaxis, no sore throat Respiratoryno cough, no wheezing, no shortness of breath Cardiacno palpitations, no chest pain, no syncope Mehdi nausea, vomiting, diarrhea, melena, hematochezia GUno urinary retention, no urinary incontinence, no dysuria, no hematuria Musculoskeletalmild postoperative left knee discomfort after surgery. No muscle tenderness Skinmild ecchymoses noted left knee postoperatively. No rashes, no pruritus Neurono isolated weakness, no paresthesia, no weakness Psychno depression, no anxiety Physical Exam 2 Physical Exam: General-alert and oriented x3, no fever, no chills HEENT-head atraumatic and normocephalic, pupils equal and reactive to light, extraocular muscles intact Neck-no lymphadenopathy or thyromegaly, trachea midline Chest-clear to auscultation. No rales, wheezing or rhonchi Cardiac-tachycardic rate. Irregular rhythm. Normal S1 and S2 Abdomen-normal bowel sounds, no hepatosplenomegaly Extremities-no cyanosis, clubbing, or edema. Postoperative left knee ecchymoses. Surgical site intact and dry Neuro-cranial nerves II through XII intact, motor and sensory function within normal limits, strength symmetrical, no focal deficits Psych-normal affect, normal mood Results & Data Results & Data Vital Signs (Past 12 Hours) Vital Signs Temp Pulse Resp BP Pulse Ox O2 Del Method 09/27/24 07:20 36.8 C 111 H 15 165/117 H 96 Room Air Laboratory Results 09/27/24 07:03 09/27/24 07:03 PG Care Time/CCT Total # of Minutes Spent Total Time Spent with Patient: Total time spent is greater than 50% in coordination of care (as documented) at patient's floor/unit and/or counseling patient: Coding Level of Care Code 63208 SUB INP/OBS CARE 3/50MIN Diagnoses Intravascular volume depletion E86.1 Acute kidney injury N17.9 Atrial fibrillation, permanent I48.21 Type 2 diabetes mellitus treated with insulin E11.9; Z79.4
[2024-09-28 06:52] LABS: Hematocrit (blood only) 28.0 % (37.0-47.0); Hemoglobin 8.9 g/dl (12.0-16.0); Immature Granulocytes # (auto) 0.06 K/uL (0.01-0.20); Immature Granulocytes % (auto) 0.7 %; Mean Corpuscular Hemoglobin 30.8 pg (25.0-34.0); Mean Corpuscular Volume 96.9 fL (80.0-100.0); Platelet Count 197 K/uL (130-400); RDW Standard Deviation 53.0 fL (36.4-46.3); Red Blood Count 2.89 M/uL (4.20-5.40); White Blood Count 8.72 K/ul (4.8-10.8)
[2024-09-28 07:13] LABS: Anion Gap 5.0 (3-11); Blood Urea Nitrogen 40.0 mg/dl (6-23); Calcium 8.3 mg/dl (8.6-10.3); Carbon Dioxide 30.0 mmol/L (21-32); Chloride 103.0 mmol/L (98-107); Creatinine Clr Calc Pharmacy 21.6 ml/min; Glucose 90.0 mg/dl (70-99(Fasting)); Potassium 3.7 mmol/L (3.5-5.1); Sodium 138.0 mmol/L (136-145)
--- NOTE | 2024-09-28 08:37 | Orthopedic Progress Note ---
Date of Service September 28, 2024 Assessment & Plan (1) Osteoarthritis of left knee: Plan: Postop day 4 left knee replacement. Continuing to do well. Patient has chronic anemia and will have to monitor hemoglobin hematocrit but right now no requirement for any transfusion. Hemoglobin has improved today once again. Improved creatinine. PT/OT DVT prophylaxisTED stockings, Eliquis 2.5 mg twice daily Discharge planningInsurance authorized a snf facility stay for rehabilitation. The patient is able to be accepted to [facility] on 09/29/2024. The patient seems to be doing well and improving. The plan will be to discharge tomorrow if she continues to progress. (2) [place] disease: Admission and Anticipated Discharge Date Admission Date: September 25, 2024 Subjective Patient is doing well today. Pain is controlled in the left knee. No new complaints today. Physical Exam Constitutional: WD/WN, vitals as above no acute distress (Alert and sitting at the edge of her bed eating breakfast.) Musculoskeletal: Knee: + surgical incision (Left knee incision is well- approximated. No drainage. No erythema.); no deformity, no skin erythema and no ecchymosis Skin: no rashes, warm and dry Trauma: no evidence of skin trauma Neurologic: normal touch/pain/proprioception (Active dorsiflexion of left ankle intact.) Psychiatric: A+Ox3, euthymic affect Speech: normal rate/rhythm/volume of speech Results & Data Vital Signs (Past 12 Hours) Vital Signs Temp Pulse Resp BP Pulse Ox O2 Del Method 09/28/24 08:01 36.6 C 109 H 15 171/98 H 93 Room Air 09/27/24 22:57 36.9 C 103 H 18 161/97 H 93 Room Air 09/27/24 21:38 36.7 C 107 H 16 161/89 H 96 Room Air Diagnostic Findings Laboratory Tests 09/28/24 06:26 Hgb 8.9 L Hct 28.0 L BUN 40 H Creatinine 1.78 H D (1) Osteoarthritis of left knee Osteoarthritis type: primary Qualified Code(s): M17.12 - Unilateral primary osteoarthritis, left knee
[2024-09-28] MEDS: PSYLLIUM HUSK 4GM PACKET PO SCH (10:55)
--- NOTE | 2024-09-28 10:57 | Hospitalist Progress Note ---
Date of Service September 28, 2024 Assessment & Plan (1) Intravascular volume depletion: Plan: Most likely cause of elevated creatinine and tachycardia. Diuretics are on hold. IV fluids continue at 80 cc/h. Creatinine is now downtrending to 1.7 today, September 28. Monitor urine output. (2) Acute kidney injury: Plan: Creatinine increased to 2.4 but is now downtrending to 1.7 with IV fluids. Diuretics are on hold monitor urine output. Serial labs (3) Atrial fibrillation, permanent: Plan: Tachycardia probably from intravascular volume depletion. Continue metoprolol and diltiazem therapy. IV fluids. (4) Type 2 diabetes mellitus treated with insulin: Plan: Glucose 90 this morning, September 28. Continue ADA diet, sliding scale coverage, basal insulin therapy (5) Benign essential hypertension: Plan: Hydralazine has been started. Will adjust dosage based on response. This should replace losartan at the time of discharge. Plan Anticipate eventual discharge to rehab by primary service sometime this coming week Admission and Anticipated Discharge Date Admission Date: September 25, 2024 Subjective Alert and oriented. Creatinine has improved down to 1.7 with IV fluids. This will continue today. No evidence of CHF. Her ARB, torsemide, Zaroxolyn are all on hold. Blood pressure is elevated and hydralazine has been started. This should replace losartan which is ineffective in this age group. She is having frequent loose stools and stool BioFire has been ordered and pending. Metamucil started twice daily on a scheduled basis to add bulk to the stools and decrease the frequency of the diarrhea. Review of Systems 2 Review of Systems: Constitutionalno fever or chills ENTno blurred vision, no double vision, no epistaxis, no sore throat Respiratoryno cough, no wheezing, no shortness of breath Cardiacno palpitations, no chest pain, no syncope Mehdi nausea, vomiting, melena, hematochezia. Frequent loose stools however GUno urinary retention, no urinary incontinence, no dysuria, no hematuria Musculoskeletalmild postoperative left knee discomfort after surgery. No muscle tenderness Skinmild ecchymoses noted left knee postoperatively. No rashes, no pruritus Neurono isolated weakness, no paresthesia, no weakness Psychno depression, no anxiety Physical Exam 2 Physical Exam: General-alert and oriented x3, no fever, no chills HEENT-head atraumatic and normocephalic, pupils equal and reactive to light, extraocular muscles intact Neck-no lymphadenopathy or thyromegaly, trachea midline Chest-clear to auscultation. No rales, wheezing or rhonchi Cardiac-tachycardic rate. Irregular rhythm. Normal S1 and S2 Abdomen-normal bowel sounds, no hepatosplenomegaly Extremities-no cyanosis, clubbing, or edema. Postoperative left knee ecchymoses. Surgical site intact and dry Neuro-cranial nerves II through XII intact, motor and sensory function within normal limits, strength symmetrical, no focal deficits Psych-normal affect, normal mood Results & Data Results & Data Vital Signs (Past 12 Hours) Vital Signs Temp Pulse Resp BP Pulse Ox O2 Del Method 09/28/24 08:01 36.6 C 109 H 15 171/98 H 93 Room Air 09/27/24 22:57 36.9 C 103 H 18 161/97 H 93 Room Air Laboratory Results 09/28/24 06:26 09/28/24 06:26 PG Care Time/CCT Total # of Minutes Spent Total Time Spent with Patient: Total time spent is greater than 50% in coordination of care (as documented) at patient's floor/unit and/or counseling patient: Coding Level of Care Code 78086 SUB INP/OBS CARE 3/50MIN Diagnoses Intravascular volume depletion E86.1 Acute kidney injury N17.9 Atrial fibrillation, permanent I48.21 Type 2 diabetes mellitus treated with insulin E11.9; Z79.4 Benign essential hypertension I10
[2024-09-28] MEDS: ALBUTEROL HFA 8 GM INHALER INH PRN (18:28)
[2024-09-29] MEDS: DIGOXIN 250 MCG in SYRINGE 9 ML IV ONE (06:45)
[2024-09-29 07:24] LABS: iSTAT Art Bld Gas Base Excess 0.0 meg/L (-9-1.8); iSTAT Art Bld Gas pCO2 Correct 39 mmHg (35-46); iSTAT Art Bld Gas pH Corrected 7.404 (7.35-7.45); iSTAT Arterial Blood Gas pO2 C 116
[2024-09-29 07:32] LABS: Hematocrit (blood only) 29.1 % (37.0-47.0); Hemoglobin 9.4 g/dl (12.0-16.0); Immature Granulocytes # (auto) 0.06 K/uL (0.01-0.20); Immature Granulocytes % (auto) 0.5 %; Mean Corpuscular Hemoglobin 31.4 pg (25.0-34.0); Mean Corpuscular Volume 97.3 fL (80.0-100.0); Platelet Count 228 K/uL (130-400); RDW Standard Deviation 53.6 fL (36.4-46.3); Red Blood Count 2.99 M/uL (4.20-5.40); White Blood Count 12.55 K/ul (4.8-10.8)
[2024-09-29 07:53] LABS: Anion Gap 6.0 (3-11); Blood Urea Nitrogen 29.0 mg/dl (6-23); Calcium 8.5 mg/dl (8.6-10.3); Carbon Dioxide 29.0 mmol/L (21-32); Chloride 104.0 mmol/L (98-107); Creatinine Clr Calc Pharmacy 26.9 ml/min; Glucose 82.0 mg/dl (70-99(Fasting)); Potassium 4.1 mmol/L (3.5-5.1); Sodium 139.0 mmol/L (136-145)
[2024-09-29] MEDS: FUROSEMIDE 40 MG/4 ML VIAL IV ONE (08:38)
--- NOTE | 2024-09-29 08:40 | XRay Report ---
EXAM: XR chest 1V portable CLINICAL HISTORY: dyspnea TECHNIQUE: An X-ray image of the chest is obtained in AP projection. COMPARISON: 09/25/2024. FINDINGS: Pulmonary Parenchyma: Mild interval progression of haziness in bilateral lower zones, likely pulmonary edema. Unchanged blunting of bilateral CP angles, likely pleural effusion. No pulmonary nodules are identified. Heart and Mediastinum: Cardiomegaly, stable. No mediastinal widening or masses. No hilar or mediastinal lymphadenopathy. Bony Thorax: Bony thorax appears intact without fractures or deformities. Osteoarthritis of both acromioclavicular and glenohumeral joints (stable) Soft Tissues: Soft tissues overlying the chest wall are unremarkable. IMPRESSION: 1. Mild interval progression of haziness in bilateral lower zones, likely pulmonary edema. 2. Unchanged blunting of bilateral CP angles, likely pleural effusion. 3. Cardiomegaly, stable. 4. Clinical correlation is suggested. Electronically signed by Ag Ortega 09-29-2024 08:39 AM
[2024-09-29] MEDS: TRIAMCINOLONE ACET 0.1% CR 15 GM TUBE TOP PRN (08:41)
--- NOTE | 2024-09-29 11:02 | Orthopedic Progress Note ---
Date of Service September 29, 2024 Assessment & Plan (1) Osteoarthritis of left knee: Plan: Postop day 5 left knee replacement. Overall, the left knee is doing well. She was transferred to PCU earlier this morning with symptoms of heart failure. Patient has chronic anemia and will have to monitor hemoglobin hematocrit but right now no requirement for any transfusion. Hemoglobin has improved today once again. Improved creatinine. PT/OT DVT prophylaxisTED stockings, Eliquis 2.5 mg twice daily Discharge planningInsurance authorized a chcf facility stay for rehabilitation. The patient is able to be accepted to [facility] on 09/29/2024. As of now, her discharge will be on hold until medically stable. (2) [place] disease: Admission and Anticipated Discharge Date Admission Date: September 25, 2024 Subjective Patient has no complaints with the left knee. Pain is controlled. Patient was transferred to PCU earlier this morning. Physical Exam Constitutional: WD/WN, vitals as above (Elevated blood pressure and pulse.) no acute distress (Lying comfortably in bed) Musculoskeletal: Knee: + surgical incision (Left knee incision is well- approximated. No drainage. No erythema.); no deformity, no skin erythema and no ecchymosis Skin: no rashes, warm and dry Trauma: no evidence of skin trauma Neurologic: normal touch/pain/proprioception (Active dorsiflexion of left ankle intact.) Psychiatric: A+Ox3, euthymic affect Speech: normal rate/rhythm/volume of speech Results & Data Vital Signs (Past 12 Hours) Vital Signs Temp Pulse Pulse Pulse Resp BP Pulse Ox 09/29/24 07:55 36.4 C L 113 H 24 186/110 H 100 09/29/24 07:41 88 18 96 09/29/24 06:55 36.4 C L 128 H 20 186/110 H 100 09/29/24 06:45 112 H 09/29/24 06:10 125 H 20 180/107 H 09/29/24 05:09 36.5 C 125 H 20 169/125 H 100 09/29/24 00:07 16 161/91 H 99 O2 Del Method O2 Flow Rate 09/29/24 07:55 Nasal Cannula 2 09/29/24 07:41 Nasal Cannula 2 09/29/24 06:55 Nasal Cannula 3 09/29/24 06:45 09/29/24 06:10 09/29/24 05:09 Nasal Cannula 3 09/29/24 00:07 Nasal Cannula 3 Laboratory Results Laboratory Tests 09/29/24 07:11 WBC 12.55 H Hgb 9.4 L Hct 29.1 L Creatinine 1.43 H D B-Natriuretic Peptide 1912 H (1) Osteoarthritis of left knee Osteoarthritis type: primary Qualified Code(s): M17.12 - Unilateral primary osteoarthritis, left knee
[2024-09-29] MEDS ORDERED: PHARMACY GLYCEMIC MGMT CONSULT PRN (11:22)
--- NOTE | 2024-09-29 11:30 | Hospitalist Progress Note ---
Date of Service September 29, 2024 Assessment & Plan (1) Intravascular volume depletion: (2) Acute kidney injury: (3) Atrial fibrillation, permanent: (4) Type 2 diabetes mellitus treated with insulin: (5) Benign essential hypertension: Plan 84 yo female with PMH of paroxysmal atrial fibrillation, DMII, hypertension, dyslipidemia presents to the hospital for an elective Total knee replacement of her left knee. Acute on chronic CHF exacerbation/volume overload CHF protocol orders Status post IV lasix 80X1 on 09/29. IV lasix 40 BID (roughly equivalent to home PO torsemide dosing) GDMT (ACEI held) TTE TFTs Will benefit from close outpatient follow-up with orthopedic dentist A-fib RVR OAC. Continue mackenzie control medications. Address heart failure to correct RVR Acute hypoxic respiratory failure second above Wean O2 Diarrhea Supportive care Stool studies pending Monitor white count Intravascular volume depletion resolved IV fluids discontinued on 09/29 Hypertension Continue home meds. Losartan discontinued. Hydralazine added MILANA/CKD Avoid nephrotoxic meds including NSAIDs Losartan discontinued Can consider reinstatement outpatient once renal function stabilized Diabetes Oral hypoglycemics held Short and long-acting insulin Pharmacy consultation to optimize DVT prophylaxis per primary Disposition Anticipate eventual discharge to rehab by primary service sometime this coming week Admission and Anticipated Discharge Date Admission Date: September 25, 2024 Subjective Received reports from multiple night team residents about A-fib RVR and elevated blood pressure ~7AM. Chart reviewed with suspicion of volume overload/CHF with worsening 02 requirements, concomitant A-fib RVR and elevated blood pressure. Hydralazine increased, IV Lasix given and IVFs d/devin amongst other interventions as per order adjustments. Seen at bedside shortly after around 7:30 AM RN at bedside. We went over the extensively. She endorsed shortness of breath and orthopnea With an audible wheeze Suspected to be cardiac. No chest pain cough fevers chills lightheadedness or any other symptoms. gave IV Lasix 80 x 1. Blood gas reviewed. Checked on the patient shortly after around 8:30 AM her breathing is significantly improved she is diuresing a lot feels much better . Vitals a little improved. O2 requirements down From 3 to 2 L. NSAID discontinued with renal insufficiency White count up suspect this is reactive. Diarrhea is unchanged. Stool PCR pending Review of Systems Review of Systems: Negative except as in HPI Constitutional: no fever and no body aches Eyes: no blind spots and no discharge Ear, Nose, Mouth, Throat: no ear pain and no tinnitus Respiratory: no cough Cardiovascular: no chest pain and no radiating jaw, neck or arm pain Gastrointestinal: no abdominal pain and no early satiety Genitourinary: no dysuria Musculoskeletal: no loss of height Integumentary: no acne and no lesions Neurologic: + unsteadiness (due to left knee OSTEOAR THIRTIS) Psychiatric: no behavioral changes and no anhedonia Endocrine: no fatigue and no polyphagia Hematologic / Lymphatic: no easy bleeding Allergy / Immunological: no GI upset with certain foods Physical Exam Physical Exam: General-alert and oriented x3, no fever, no chills HEENT-head atraumatic and normocephalic, pupils equal and reactive to light, extraocular muscles intact Neck-no lymphadenopathy or thyromegaly, trachea midline Chest-cta b/l Cardiac-tachycardic rate. Irregular rhythm. Normal S1 and S2 Abdomen-normal bowel sounds, no hepatosplenomegaly Extremities-no cyanosis, clubbing, or edema. Postoperative left knee ecchymoses. Surgical site intact and dry Neuro-cranial nerves II through XII intact, motor and sensory function within normal limits, strength symmetrical, no focal deficits Psych-normal affect, normal mood Constitutional: WD/WN, vitals as above Eyes: PERRL, conjunctivae normal, anicteric sclerae ENMT: external ear and nose normal, oropharynx normal Neck: trachea midline, no thyromegaly Respiratory: normal respiratory effort, lungs clear to auscultation Cardiovascular: RRR, no murmur, no edema Gastrointestinal (Abdomen): normal bowel sounds, soft, nontender, no hepatosplenomegaly Skin: no rashes, warm and dry Neurologic: PERRL, EOMI, accommodation nl, no face palsy, no dysarthria Psychiatric: A+Ox3, euthymic affect Lymphatic: no cervical or axillary lymphadenopathy Results & Data Results & Data Vital Signs (Past 12 Hours) Vital Signs Temp Pulse Pulse Pulse Resp BP Pulse Ox 09/29/24 07:55 36.4 C L 113 H 24 186/110 H 100 09/29/24 07:41 88 18 96 09/29/24 06:55 36.4 C L 128 H 20 186/110 H 100 09/29/24 06:45 112 H 09/29/24 06:10 125 H 20 180/107 H 09/29/24 05:09 36.5 C 125 H 20 169/125 H 100 09/29/24 00:07 16 161/91 H 99 O2 Del Method O2 Flow Rate 09/29/24 07:55 Nasal Cannula 2 09/29/24 07:41 Nasal Cannula 2 09/29/24 06:55 Nasal Cannula 3 09/29/24 06:45 09/29/24 06:10 09/29/24 05:09 Nasal Cannula 3 09/29/24 00:07 Nasal Cannula 3 PG Care Time/CCT Total # of Minutes Spent Total Time Spent with Patient: Total time spent is greater than 50% in coordination of care (as documented) at patient's floor/unit and/or counseling patient: Coding Level of Care Code 91965 SUB INP/OBS CARE 2/35MIN Diagnoses Intravascular volume depletion E86.1 Acute kidney injury N17.9 Atrial fibrillation, permanent I48.21 Type 2 diabetes mellitus treated with insulin E11.9; Z79.4 Benign essential hypertension I10
[2024-09-29 12:17] LABS: Thyroid Stimulating Hormone 1.832 uIu/ml (0.300-4.500)
--- NOTE | 2024-09-29 13:06 | Pharmacy Report ---
Pharmacy Glycemic Short Note 2 - Date of Service September 29, 2024 - Glycemic Short BSG Results (Last 24 hours): 09/28/24 09/28/24 09/29/24 16:40 19:46 05:08 Glucose POC Glucose 149 H 90 111 H 09/29/24 09/29/24 09/29/24 07:11 07:14 11:33 Glucose 82 POC Glucose 85 89 OUTPATIENT ANTIDIABETIC REGIMEN: * Lantus 16 units SC daily * Glimepiride 1 mg PO BIDM HbA1c: 5.5% (09/10/24) ASSESSMENT: 09/29: * POD #5 s/p left TKA. Pharmacy consult was discontinued on 09/27/24 but restarted today. Patient's BSGs have been below goal mostly for the last 48 hours. * BSGs today were: 85-89 mg/dL. Perioperative steroids have worn off at this point. Will continue to hold off on basal insulin until BSGs are above 140 mg/dL. * No other stressors. Will loosen Novolog parameters with lunch today to prevent any episodes of hypoglycemia. 09/26: * POD #2 s/p left TKA * Blood sugars ranging 115-175 mg/dL yesterday * Last dose of dexamethasone IV yesterday AM * Loosen Novolog today w/ reduction in basal (scale this evening) 09/24: * LM is an 84 year old female POD #0 s/p left total knee arthroplasty * Received 4 mg IV dexamethasone in OR, ordered 10 mg IV x 1 tomorrow morning * Blood sugars today so far of 144, 90, and 154 mg/dL PLAN FOR INPATIENT GLYCEMIC CONTROL: * Hold outpatient oral diabetes medications * Basal insulin * None * Bolus insulin * NovoLog per scale ACHS or Q6hrs while NPO * Goal Range: Low 120 mg/dL - High 160 mg/dL * Correction Factor: 45 mg/dL/unit * Nutritional / Prandial insulin per carb ratio of 1 unit per 15 grams CHO consumed
[2024-09-29] MEDS ORDERED: DIGOXIN 250 MCG in SYRINGE 9 ML IV SCH (16:00)
[2024-09-29] MEDS: FUROSEMIDE 40 MG/4 ML VIAL IV SCH (16:58)
[2024-09-29] MEDS ORDERED: FUROSEMIDE INJ 20 MG/2 ML VIAL IV SCH (17:00)
[2024-09-29 20:46] LABS: Adenovirus F 40/41 PCR Not Detected (NotDetected); Campylobacter PCR Not Detected (NotDetected); Enteroaggregative E.coli(EAEC) Not Detected (NotDetected); Shiga-like Toxin E.coli (STEC) Not Detected (NotDetected); Vibrio species PCR Not Detected (NotDetected)
--- NOTE | 2024-09-30 05:49 | XCELERA ---
[id number]
[2024-09-30 07:10] LABS: Hematocrit (blood only) 27.0 % (37.0-47.0); Hemoglobin 8.8 g/dl (12.0-16.0); Immature Granulocytes # (auto) 0.05 K/uL (0.01-0.20); Immature Granulocytes % (auto) 0.5 %; Mean Corpuscular Hemoglobin 31.5 pg (25.0-34.0); Mean Corpuscular Volume 96.8 fL (80.0-100.0); Platelet Count 190 K/uL (130-400); RDW Standard Deviation 51.6 fL (36.4-46.3); Red Blood Count 2.79 M/uL (4.20-5.40); White Blood Count 9.24 K/ul (4.8-10.8)
[2024-09-30 07:38] LABS: Alanine Aminotransferase 10.0 U/L (7-52); Albumin Globulin Ratio 0.8 (0.9-2); Alkaline Phosphatase 117.0 U/L (34-104); Anion Gap 8.0 (3-11); Bilirubin,Total 0.8 mg/dl (0.2-1.0); Blood Urea Nitrogen 29.0 mg/dl (6-23); Calcium 8.8 mg/dl (8.6-10.3); Carbon Dioxide 29.0 mmol/L (21-32); Chloride 102.0 mmol/L (98-107); Creatinine Clr Calc Pharmacy 27.4 ml/min; Globulin 3.3 gm/dl (2.5-4.0); Glucose 114.0 mg/dl (70-99(Fasting)); Potassium 3.5 mmol/L (3.5-5.1); Sodium 139.0 mmol/L (136-145); Total Protein 6.0 gm/dl (6.0-8.3)
--- NOTE | 2024-09-30 08:30 | Orthopedic Progress Note ---
Date of Service September 30, 2024 Assessment & Plan (1) Status post left knee replacement: Plan: Follow-up left knee replacement. Orthopedically stable for discharge whenever medical team feels she is stable. Patient appears to have medical improvement from recent renal and cardiac issues. Admission and Anticipated Discharge Date Admission Date: September 25, 2024 Subjective No pain this morning patient feels her knees doing very well. No shortness of breath. Received reports from multiple night team residents about A-fib RVR and elevated blood pressure ~7AM. Chart reviewed with suspicion of volume overload/CHF with worsening 02 requirements, concomitant A-fib RVR and elevated blood pressure. Hydralazine increased, IV Lasix given and IVFs d/devin amongst other interventions as per order adjustments. Seen at bedside shortly after around 7:30 AM RN at bedside. We went over the extensively. She endorsed shortness of breath and orthopnea With an audible wheeze Suspected to be cardiac. No chest pain cough fevers chills lightheadedness or any other symptoms. gave IV Lasix 80 x 1. Blood gas reviewed. Checked on the patient shortly after around 8:30 AM her breathing is significantly improved she is diuresing a lot feels much better . Vitals a little improved. O2 requirements down From 3 to 2 L. NSAID discontinued with renal insufficiency White count up suspect this is reactive. Diarrhea is unchanged. Stool PCR pending Review of Systems Review of Systems: Denies shortness of breath, no chest pain Physical Exam Musculoskeletal: Patient awake alert oriented. Eating breakfast. Denies any pain left knee. Left knee incision benign no erythema no drainage. Lower extremity edema minimal. Distal circulation sensorimotor exam at baseline back to normal Results & Data Vital Signs (Past 12 Hours) Vital Signs Temp Pulse Resp BP Pulse Ox O2 Del Method O2 Flow Rate 09/30/24 07:23 36.4 C L 96 H 18 170/74 H 100 Nasal Cannula 2 09/30/24 02:44 36.6 C 83 18 162/94 H 99 Nasal Cannula 2.0 09/29/24 22:34 36.9 C 91 H 18 148/85 H 99 Nasal Cannula 2.0 09/29/24 21:00 Nasal Cannula 2 Laboratory Results BUN/creatinine improved
--- NOTE | 2024-09-30 10:59 | Hospitalist Progress Note ---
Date of Service September 30, 2024 Assessment & Plan (1) Intravascular volume depletion: (2) Acute kidney injury: (3) Atrial fibrillation, permanent: (4) Type 2 diabetes mellitus treated with insulin: (5) Benign essential hypertension: Plan 84 yo female with PMH of paroxysmal atrial fibrillation, DMII, hypertension, dyslipidemia presents to the hospital for an elective Total knee replacement of her left knee. Acute on chronic CHF exacerbation/volume overload CHF protocol orders Status post IV lasix 80X1 on 09/29. IV lasix 40 BID (roughly equivalent to home PO torsemide dosing) GDMT (ACEI held) TTE Elevated RVSP, mild TFTs WNL Will benefit from close outpatient follow-up with navigation officer Vikki RVR stable OAC. Continue mackenzie control medications. Address heart failure to correct RVR Acute hypoxic respiratory failure second above Wean O2 Diarrhea Supportive care Stool studies Norovirus Stay well-hydrated Intravascular volume depletion resolved IV fluids discontinued on 09/29 Hypertension Continue home meds. Losartan discontinued. Hydralazine added PRN's MILANA/CKD Avoid nephrotoxic meds including NSAIDs Losartan discontinued Can consider reinstatement outpatient once renal function stabilized Diabetes Oral hypoglycemics held Short and long-acting insulin Pharmacy consultation to optimize DVT prophylaxis per primary Disposition Anticipate eventual discharge to rehab by primary service sometime this coming week Admission and Anticipated Discharge Date Admission Date: September 25, 2024 Subjective Doing very well today in good spirits tells me her breathing continues to improve. No orthopnea. No chest pain nausea lightheadedness or any other symptoms. Daughter at bedside. We went over everything extensively she was very appreciative. We discussed return IV Lasix dosing is maybe a little lower than the total p.o. torsemide dosing at home however Considering her hospitalization with acute issues, suspected decreased p.o. intake and ongoing diarrhea, we will not diurese more aggressively at this time Weight down maybe a little unsure of accuracy. Unsure of accuracy of I's and O's? Do not see output documented. Orders reinforced No abdominal pain fevers chills or any other symptoms. Still has diarrhea Review of Systems Review of Systems: Negative except as in HPI Constitutional: no fever and no body aches Eyes: no blind spots and no discharge Ear, Nose, Mouth, Throat: no ear pain and no tinnitus Respiratory: no cough Cardiovascular: no chest pain and no radiating jaw, neck or arm pain Gastrointestinal: no abdominal pain and no early satiety Genitourinary: no dysuria Musculoskeletal: no loss of height Integumentary: no acne and no lesions Neurologic: + unsteadiness (due to left knee OSTEOAR THIRTIS) Psychiatric: no behavioral changes and no anhedonia Endocrine: no fatigue and no polyphagia Hematologic / Lymphatic: no easy bleeding Allergy / Immunological: no GI upset with certain foods Physical Exam Physical Exam: General-alert and oriented x3, no fever, no chills HEENT-head atraumatic and normocephalic, pupils equal and reactive to light, extraocular muscles intact Neck-no lymphadenopathy or thyromegaly, trachea midline Chest-cta b/l Cardiac-tachycardic rate. Irregular rhythm. Normal S1 and S2 Abdomen-normal bowel sounds, no hepatosplenomegaly Extremities-no cyanosis, clubbing, or edema. Postoperative left knee ecchymoses. Surgical site intact and dry Neuro-cranial nerves II through XII intact, motor and sensory function within normal limits, strength symmetrical, no focal deficits Psych-normal affect, normal mood Constitutional: WD/WN, vitals as above Eyes: PERRL, conjunctivae normal, anicteric sclerae ENMT: external ear and nose normal, oropharynx normal Neck: trachea midline, no thyromegaly Respiratory: normal respiratory effort, lungs clear to auscultation Cardiovascular: RRR, no murmur, no edema Gastrointestinal (Abdomen): normal bowel sounds, soft, nontender, no hepatosplenomegaly Skin: no rashes, warm and dry Neurologic: PERRL, EOMI, accommodation nl, no face palsy, no dysarthria Psychiatric: A+Ox3, euthymic affect Lymphatic: no cervical or axillary lymphadenopathy Results & Data Results & Data Vital Signs (Past 12 Hours) Vital Signs Temp Pulse Resp BP Pulse Ox O2 Del Method O2 Flow Rate 09/30/24 07:23 36.4 C L 96 H 18 170/74 H 100 Nasal Cannula 2 09/30/24 02:44 36.6 C 83 18 162/94 H 99 Nasal Cannula 2.0 PG Care Time/CCT Total # of Minutes Spent Total Time Spent with Patient: Total time spent is greater than 50% in coordination of care (as documented) at patient's floor/unit and/or counseling patient: Coding Level of Care Code 69831 SUB INP/OBS CARE 2/35MIN Diagnoses Intravascular volume depletion E86.1 Acute kidney injury N17.9 Atrial fibrillation, permanent I48.21 Type 2 diabetes mellitus treated with insulin E11.9; Z79.4 Benign essential hypertension I10
[2024-09-30] MEDS ORDERED: LABETALOL HCL IV 5 MG/ML 20ML IV PRN (14:00)
[2024-10-01 07:02] LABS: Hematocrit (blood only) 27.1 % (37.0-47.0); Hemoglobin 8.8 g/dl (12.0-16.0); Mean Corpuscular Hemoglobin 31.5 pg (25.0-34.0); Mean Corpuscular Volume 97.1 fL (80.0-100.0); Platelet Count 201 K/uL (130-400); RDW Standard Deviation 53.4 fL (36.4-46.3); Red Blood Count 2.79 M/uL (4.20-5.40); White Blood Count 9.13 K/ul (4.8-10.8)
[2024-10-01 07:30] LABS: Alanine Aminotransferase 12.0 U/L (7-52); Albumin Globulin Ratio 0.8 (0.9-2); Alkaline Phosphatase 116.0 U/L (34-104); Anion Gap 7.0 (3-11); Bilirubin,Total 0.5 mg/dl (0.2-1.0); Blood Urea Nitrogen 27.0 mg/dl (6-23); Calcium 8.6 mg/dl (8.6-10.3); Carbon Dioxide 31.0 mmol/L (21-32); Chloride 103.0 mmol/L (98-107); Creatinine Clr Calc Pharmacy 26.6 ml/min; Globulin 3.3 gm/dl (2.5-4.0); Glucose 156.0 mg/dl (70-99(Fasting)); Potassium 3.6 mmol/L (3.5-5.1); Sodium 141.0 mmol/L (136-145); Total Protein 6.0 gm/dl (6.0-8.3)
[2024-10-01] MEDS: FUROSEMIDE 40 MG/4 ML VIAL IV SCH (08:54)
--- NOTE | 2024-10-01 11:18 | Hospitalist Progress Note ---
Date of Service October 01, 2024 Assessment & Plan (1) Intravascular volume depletion: (2) Acute kidney injury: (3) Atrial fibrillation, permanent: (4) Type 2 diabetes mellitus treated with insulin: (5) Benign essential hypertension: Plan 84 yo female with PMH of paroxysmal atrial fibrillation, DMII, hypertension, dyslipidemia presents to the hospital for an elective Total knee replacement of her left knee. Acute on chronic CHF exacerbation/volume overload CHF protocol orders Status post IV lasix 80X1 on 09/29. IV lasix 40 BID Increased IV Lasix 40 3 times daily on 10/01 GDMT (ACEI held) TTE Elevated RVSP, mild TFTs WNL Will benefit from close outpatient follow-up with stave cutting supervisor Vikki RVR stable OAC. Continue mackenzie control medications. Address heart failure to correct RVR Acute hypoxic respiratory failure second above Wean O2 Diarrhea Supportive care Stool studies Norovirus Stay well-hydrated Intravascular volume depletion resolved IV fluids discontinued on 09/29 Hypertension Continue home meds. Losartan discontinued. Hydralazine added PRN's MILANA/CKD Avoid nephrotoxic meds including NSAIDs Losartan discontinued Can consider reinstatement outpatient once renal function stabilized Diabetes Oral hypoglycemics held Short and long-acting insulin Pharmacy consultation to optimize DVT prophylaxis per primary Disposition Anticipate eventual discharge to rehab by primary service In 1 to 2 days once heart failure resolved Admission and Anticipated Discharge Date Admission Date: September 25, 2024 Subjective Continues to improve breathing improving and orthopnea. Remains on 2 L O2. Noted positive fluid balance. Weights not really improving. Lasix dose increased To be more commensurate with home torsemide dosing. Initially reduced dose was used with ongoing diarrhea Weight down maybe a little unsure of accuracy from 65 to 63kg. Unsure of accuracy of I's and O's? Do not see output documented. Orders reinforced Review of Systems Review of Systems: Negative except as in HPI Constitutional: no fever and no body aches Eyes: no blind spots and no discharge Ear, Nose, Mouth, Throat: no ear pain and no tinnitus Respiratory: no cough Cardiovascular: no chest pain and no radiating jaw, neck or arm pain Gastrointestinal: no abdominal pain and no early satiety Genitourinary: no dysuria Musculoskeletal: no loss of height Integumentary: no acne and no lesions Neurologic: + unsteadiness (due to left knee OSTEOAR THIRTIS) Psychiatric: no behavioral changes and no anhedonia Endocrine: no fatigue and no polyphagia Hematologic / Lymphatic: no easy bleeding Allergy / Immunological: no GI upset with certain foods Physical Exam Physical Exam: General-alert and oriented x3, no fever, no chills HEENT-head atraumatic and normocephalic, pupils equal and reactive to light, extraocular muscles intact Neck-no lymphadenopathy or thyromegaly, trachea midline Chest-cta b/l Cardiac-tachycardic rate. Irregular rhythm. Normal S1 and S2 Abdomen-normal bowel sounds, no hepatosplenomegaly Extremities-no cyanosis, clubbing, or edema. Postoperative left knee ecchymoses. Surgical site intact and dry Neuro-cranial nerves II through XII intact, motor and sensory function within normal limits, strength symmetrical, no focal deficits Psych-normal affect, normal mood Constitutional: WD/WN, vitals as above Eyes: PERRL, conjunctivae normal, anicteric sclerae ENMT: external ear and nose normal, oropharynx normal Neck: trachea midline, no thyromegaly Respiratory: normal respiratory effort, lungs clear to auscultation Cardiovascular: RRR, no murmur, no edema Gastrointestinal (Abdomen): normal bowel sounds, soft, nontender, no hepatosplenomegaly Skin: no rashes, warm and dry Neurologic: PERRL, EOMI, accommodation nl, no face palsy, no dysarthria Psychiatric: A+Ox3, euthymic affect Lymphatic: no cervical or axillary lymphadenopathy Results & Data Results & Data Vital Signs (Past 12 Hours) Vital Signs Temp Pulse Pulse Resp BP Pulse Ox O2 Del Method 10/01/24 08:35 Nasal Cannula 10/01/24 07:55 36.6 C 102 H 18 125/77 98 Nasal Cannula 10/01/24 07:00 72 10/01/24 03:11 36.9 C 82 20 148/87 H 98 Nasal Cannula O2 Flow Rate 10/01/24 08:35 2 10/01/24 07:55 2 10/01/24 07:00 10/01/24 03:11 2 PG Care Time/CCT Total # of Minutes Spent Total Time Spent with Patient: Total time spent is greater than 50% in coordination of care (as documented) at patient's floor/unit and/or counseling patient: Coding Level of Care Code 31980 SUB INP/OBS CARE 2/35MIN Diagnoses Intravascular volume depletion E86.1 Acute kidney injury N17.9 Atrial fibrillation, permanent I48.21 Type 2 diabetes mellitus treated with insulin E11.9; Z79.4 Benign essential hypertension I10
--- NOTE | 2024-10-01 12:17 | Orthopedic Progress Note ---
Date of Service October 01, 2024 Assessment & Plan (1) Status post left knee replacement: Plan: Postop day 7 left knee replacement. Overall, the left knee is doing well. Patient has chronic anemia and will have to monitor hemoglobin hematocrit but right now no requirement for any transfusion. Hemoglobin has improved today once again. Improved creatinine. PT/OT DVT prophylaxisTED stockings, Eliquis 2.5 mg twice daily Discharge planningInsurance authorized a senior care facility stay for rehabilitation. The patient is able to be accepted to [facility] on 09/29/2024. Tentative plan is to discharge tomorrow 10/02/2024 if she continues to be medically stable. Admission and Anticipated Discharge Date Admission Date: September 25, 2024 Subjective Pain is controlled in the left knee. No knee complaints today. Overall, she states she is feeling much better. Review of Systems Review of Systems: Denies shortness of breath, no chest pain Physical Exam Constitutional: WD/WN, vitals as above no acute distress (Sitting in the bedside chair eating lunch.) Musculoskeletal: Knee: + surgical incision (Left knee incision is well- approximated. No drainage. No erythema.); no deformity, no skin erythema and no ecchymosis Skin: no rashes, warm and dry Trauma: no evidence of skin trauma Neurologic: normal touch/pain/proprioception (Active dorsiflexion of left ankle intact.) Psychiatric: A+Ox3, euthymic affect Speech: normal rate/rhythm/volume of speech Results & Data Vital Signs (Past 12 Hours) Vital Signs Temp Pulse Pulse Resp BP BP Pulse Ox 10/01/24 11:00 36.5 C 70 16 141/71 H 111/69 96 10/01/24 08:35 10/01/24 07:55 36.6 C 102 H 18 125/77 98 10/01/24 07:00 72 10/01/24 03:11 36.9 C 82 20 148/87 H 98 O2 Del Method O2 Flow Rate 10/01/24 11:00 Nasal Cannula 2 10/01/24 08:35 Nasal Cannula 2 10/01/24 07:55 Nasal Cannula 2 10/01/24 07:00 10/01/24 03:11 Nasal Cannula 2 Laboratory Results Laboratory Tests 10/01/24 06:33 Hgb 8.8 L Hct 27.1 L BUN 27 H Creatinine 1.42 H
[2024-10-02 06:12] LABS: Hematocrit (blood only) 25.8 % (37.0-47.0); Hemoglobin 8.5 g/dl (12.0-16.0); Mean Corpuscular Hemoglobin 32.0 pg (25.0-34.0); Mean Corpuscular Volume 97.0 fL (80.0-100.0); Platelet Count 190 K/uL (130-400); RDW Standard Deviation 52.4 fL (36.4-46.3); Red Blood Count 2.66 M/uL (4.20-5.40); White Blood Count 6.89 K/ul (4.8-10.8)
[2024-10-02 06:42] LABS: Alanine Aminotransferase 14.0 U/L (7-52); Albumin Globulin Ratio 0.8 (0.9-2); Alkaline Phosphatase 114.0 U/L (34-104); Anion Gap 7.0 (3-11); Bilirubin,Total 0.4 mg/dl (0.2-1.0); Blood Urea Nitrogen 23.0 mg/dl (6-23); Calcium 8.6 mg/dl (8.6-10.3); Carbon Dioxide 31.0 mmol/L (21-32); Chloride 102.0 mmol/L (98-107); Creatinine Clr Calc Pharmacy 28.8 ml/min; Globulin 3.2 gm/dl (2.5-4.0); Glucose 183.0 mg/dl (70-99(Fasting)); Potassium 3.3 mmol/L (3.5-5.1); Sodium 140.0 mmol/L (136-145); Total Protein 5.9 gm/dl (6.0-8.3)
--- NOTE | 2024-10-02 08:16 | Orthopedic Progress Note ---
Date of Service October 02, 2024 Assessment & Plan (1) Status post left knee replacement: Plan: Postop day 8 left knee replacement. Overall, the left knee is doing well. Patient has chronic anemia and this appears to be stable. Has potassium of 3.3 so likely needs more potassium supplement and this is likely due to being on Lasix. Medical service can manage potassium dosing. BUN/creatinine have significantly improved so renal insufficiency has stabilized. PT/OT DVT prophylaxisTED stockings, Eliquis 2.5 mg twice daily Discharge planningInsurance authorized a prison facility stay for rehabilitation. The patient was already able to be accepted to [facility] on 09/29/2024. Tentative plan is to discharge today 10/02/2024 if she continues to be medically stable and cleared by hospitalist for discharge. Admission and Anticipated Discharge Date Admission Date: September 25, 2024 Subjective Patient feels well would like to go to rehabilitation Hospital. Review of Systems Review of Systems: Feels well no shortness of breath Physical Exam Musculoskeletal: No active drainage from incision with benign appearing incision but there appeared to be some scant drainage that was soaked up by the ABD pad. No erythema noted. No pain 0 to 90 degrees range of motion. Results & Data Vital Signs (Past 12 Hours) Vital Signs Temp Pulse Pulse Resp BP Pulse Ox O2 Del Method 10/02/24 07:32 36.7 C 78 18 161/81 H 95 Room Air 10/01/24 22:32 80 16 146/73 H 97 Room Air 10/01/24 20:43 Nasal Cannula
--- NOTE | 2024-10-02 08:32 | Hospitalist Progress Note ---
Date of Service October 02, 2024 Assessment & Plan (1) Intravascular volume depletion: (2) Acute kidney injury: (3) Atrial fibrillation, permanent: (4) Type 2 diabetes mellitus treated with insulin: (5) Benign essential hypertension: Plan 84 yo female with PMH of paroxysmal atrial fibrillation, DMII, hypertension, dyslipidemia presents to the hospital for an elective Total knee replacement of her left knee. Discharge recommendations: 1. Continue torsemide 20 mg p.o. twice daily on discharge. Track weights daily. If more than 5 pounds of weight gain over 48 hours, worsening orthopnea or concerns of volume overload increase to 3 times daily and follow-up with PCP/drilling supervisor within 1 week for further recommendations. If any chest pain, difficulty breathing, or hypoxia should be seen promptly for medical reevaluation 2. Continue potassium chloride p.o. 20 mEq twice daily x3 days. Increase losses due to diarrhea. Once levels stable and diarrhea resolves completely can likely decrease back to daily dosing 3. Recheck BMP and magnesium level in 1 week by outpatient provider 4. Continue metoprolol tartrate 150 mg twice daily. Heart rate improved and normalized with treatment of underlying volume overload. Daily weights and cautious monitoring of volume status as above 5. Supportive care for diarrhea. Likely with increased calcium losses during admission due to this 6. Resume losartan. Renal function was at baseline, mild hypertension Acute on chronic CHF Continue torsemide 20 mg p.o. twice daily, increase to 3 times daily if needed or signs of volume overload. Daily weights. Continue metoprolol, losartan Outpatient follow-up with cardiology within 1 month s/p L Knee TKA - C/D/I - Managment per primary team - DVT ppx per primary team - No pain day of discharge A-fib RVR Rate improved with treatment of volume overload Continue Eliquis anticoagulation for prophylaxis Continue metoprolol Acute hypoxic respiratory failure Resolved Diarrhea Norovirus during admission, supportive care. Increased potassium supp lementation for 3 days as noted MILANA/CKD Creatinine baseline approximately 1.31.5 Creatinine 1.31-day of discharge, at baseline Losartan resumed day of discharge Diabetes Resume home regimen on discharge Admission and Anticipated Discharge Date Admission Date: September 25, 2024 Subjective Seen at bedside. feels well. dyspnea has resolved. denies leg swelling. no chest pain, chest pressure, palpitations. she feels she is near her normal health baseline and is eager for dc Physical Exam Physical Exam: General: A&Ox3. NAD. Cooperative. HEENT: Atraumatic, normocephalic. PERLAA. Vision and hearing grossly intact Pulm: CTAB A&P. -wheezes, -rales, -rhonchi. Symmetrical chest rise. No increased work of breathing. No respiratory distress. Cardiac: regular rate, irregular, -mrg. Radial pulses intact and symmetrical. Abdominal: Nontender, nondistended, soft. BS present. Ext: surgical site c/d/i. Sensation to soft touch intact in both feet to soft touch without deficit. Toe wiggle intact b/l. No LE edema. Hallux refill brisk b/l Results & Data Results & Data Vital Signs (Past 12 Hours) Vital Signs Temp Pulse Pulse Resp BP Pulse Ox O2 Del Method 10/02/24 07:32 36.7 C 78 18 161/81 H 95 Room Air 10/01/24 22:32 80 16 146/73 H 97 Room Air 10/01/24 20:43 Nasal Cannula PG Care Time/CCT Total # of Minutes Spent Total Time Spent with Patient: Total time spent is greater than 50% in coordination of care (as documented) at patient's floor/unit and/or counseling patient: Coding Level of Care Code 06056 SUB INP/OBS CARE 3/50MIN Diagnoses Intravascular volume depletion E86.1 Acute kidney injury N17.9 Atrial fibrillation, permanent I48.21 Type 2 diabetes mellitus treated with insulin E11.9; Z79.4 Benign essential hypertension I10
[2024-10-02] MEDS: POTASSIUM CHLORIDE CRTAB 20 MEQ TABCR PO STA (08:40)
[2024-10-02] MEDS: POTASSIUM CHLORIDE 10 MEQ TABCR PO SCH (10:20)
--- NOTE | 2024-10-02 13:00 | Pharmacy Report ---
Pharmacy Glycemic Short Note 2 - Date of Service October 02, 2024 - Glycemic Short BSG Results (Last 24 hours): 10/01/24 10/01/24 10/02/24 16:19 20:20 05:44 Glucose 183 H POC Glucose 158 H 172 H 10/02/24 10/02/24 07:25 11:25 Glucose POC Glucose 192 H 139 H OUTPATIENT ANTIDIABETIC REGIMEN: * Lantus 16 units SC daily * Glimepiride 1 mg PO BIDM HbA1c: 5.5% (09/10/24) ASSESSMENT: 10/02: * Jennifer received only 9 units of insulin yesterday (all were bolus). Bolus insulin parameters were loosened some yesterday as her fasting BSG was 77mg/dL. However, the remainder of the day her BSG was elevated and her fasting BSG was 192mg/dL this morning. The CR was tightened and a Lantus scale (0, 5, or 10 units depending on BSG) was added at HS 09/29: * POD #5 s/p left TKA. Pharmacy consult was discontinued on 09/27/24 but restarted today. Patient's BSGs have been below goal mostly for the last 48 hours. * BSGs today were: 85-89 mg/dL. Perioperative steroids have worn off at this point. Will continue to hold off on basal insulin until BSGs are above 140 mg/dL. * No other stressors. Will loosen Novolog parameters with lunch today to prevent any episodes of hypoglycemia. 09/26: * POD #2 s/p left TKA * Blood sugars ranging 115-175 mg/dL yesterday * Last dose of dexamethasone IV yesterday AM * Loosen Novolog today w/ reduction in basal (scale this evening) 09/24: * LM is an 84 year old female POD #0 s/p left total knee arthroplasty * Received 4 mg IV dexamethasone in OR, ordered 10 mg IV x 1 tomorrow morning * Blood sugars today so far of 144, 90, and 154 mg/dL PLAN FOR INPATIENT GLYCEMIC CONTROL: * Hold outpatient oral diabetes medications * Basal insulin * Lantus scale at HS (0, 5, or 10 units depending on BSG) * Bolus insulin * NovoLog per scale ACHS or Q6hrs while NPO * Goal Range: Low 120 mg/dL - High 160 mg/dL * Correction Factor: 35 mg/dL/unit * Nutritional / Prandial insulin per carb ratio of 1 unit per 12 grams CHO consumed
[2024-10-02] MEDS: LANTUS PER UNIT CHARGE SC SCH (22:35)
--- NOTE | 2024-10-03 07:46 | Orthopedic Progress Note ---
Date of Service October 03, 2024 Assessment & Plan (1) Status post left knee replacement: Plan: Postop day 9 left knee replacement. Overall, the left knee is doing well. Patient has chronic anemia and this appears to be stable. Has potassium of 3.3 so likely needs more potassium supplement and this is likely due to being on Lasix. Medical service can manage potassium dosing. BUN/creatinine have significantly improved so renal insufficiency has stabilized. PT/OT DVT prophylaxisTED stockings, Eliquis 2.5 mg twice daily Discharge planningInsurance authorized a fpc facility stay for rehabilitation. The patient was already able to be accepted to [facility] on 09/29/2024. Patient will be discharged later today to [facility] after insurance authorization. Admission and Anticipated Discharge Date Admission Date: September 25, 2024 Subjective Patient is doing well today. States she is feeling much better. No complaints with her left knee. Physical Exam Constitutional: WD/WN, vitals as above no acute distress (Lying comfortably in bed) Musculoskeletal: Knee: + surgical incision (Left knee incision is well- approximated. No drainage. No erythema.); no deformity, no skin erythema and no ecchymosis Skin: no rashes, warm and dry Trauma: no evidence of skin trauma Neurologic: normal touch/pain/proprioception (Active dorsiflexion of left ankle intact.) Psychiatric: A+Ox3, euthymic affect Speech: normal rate/rhythm/volume of speech Results & Data Vital Signs (Past 12 Hours) Vital Signs Temp Pulse Pulse Resp BP Pulse Ox O2 Del Method 10/03/24 03:09 36.6 C 78 20 127/77 94 Room Air 10/02/24 22:33 36.8 C 85 18 147/89 H 95 Room Air 10/02/24 21:45 87
[2024-10-03 08:39] LABS: Hematocrit (blood only) 29.3 % (37.0-47.0); Hemoglobin 9.3 g/dl (12.0-16.0); Mean Corpuscular Hemoglobin 30.9 pg (25.0-34.0); Mean Corpuscular Volume 97.3 fL (80.0-100.0); Platelet Count 227 K/uL (130-400); RDW Standard Deviation 53.8 fL (36.4-46.3); Red Blood Count 3.01 M/uL (4.20-5.40); White Blood Count 6.87 K/ul (4.8-10.8)
[2024-10-03 11:24] VITALS: RESP 16; TEMP 99.1; O2SAT 96
[2024-10-03 15:50] VITALS: BP 115/72; PULSE 72
--- NOTE | 2024-10-03 17:20 | Hospitalist Progress Note ---
Date of Service October 03, 2024 Assessment & Plan (1) Intravascular volume depletion: (2) Acute kidney injury: (3) Atrial fibrillation, permanent: (4) Type 2 diabetes mellitus treated with insulin: (5) Benign essential hypertension: Plan 84 yo female with PMH of paroxysmal atrial fibrillation, DMII, hypertension, dyslipidemia presents to the hospital for an elective Total knee replacement of her left knee. Peer to peer completed 10/03. Approved for SNF. She is progressing, however main concerns are limitations with some difficulty elevating her left foot coupled with stairs in her home and requiring assistance transferring from the bed. Discharge recommendations copied below. Discharge recommendations: 1. Continue torsemide 20 mg p.o. twice daily on discharge. Track weights daily. If more than 5 pounds of weight gain over 48 hours, worsening orthopnea or concerns of volume overload increase to 3 times daily and follow-up with PCP/lan analyst within 1 week for further recommendations. If any chest pain, difficulty breathing, or hypoxia should be seen promptly for medical reevaluation 2. Continue potassium chloride p.o. 20 mEq twice daily x3 days. Increase losses due to diarrhea. Once levels stable and diarrhea resolves completely can likely decrease back to daily dosing 3. Recheck BMP and magnesium level in 1 week by outpatient provider 4. Continue metoprolol tartrate 150 mg twice daily. Heart rate improved and normalized with treatment of underlying volume overload. Daily weights and cautious monitoring of volume status as above 5. Supportive care for diarrhea. Likely with increased calcium losses during admission due to this 6. Resume losartan Acute on chronic CHF Continue torsemide 20 mg p.o. twice daily, increase to 3 times daily if needed or signs of volume overload. Daily weights. Continue metoprolol, losartan Outpatient follow-up with cardiology within 1 month s/p L Knee TKA - C/D/I - Managment per primary team - DVT ppx per primary team - No pain day of discharge A-fib RVR Rate improved with treatment of volume overload Continue Eliquis anticoagulation for prophylaxis Continue metoprolol Acute hypoxic respiratory failure Resolved Diarrhea Norovirus during admission, supportive care. Increased potassium supplementation for 3 days as noted MILANA/CKD Creatinine baseline approximately 1.31.5 Continue losartan Diabetes Resume home regimen on discharge Admission and Anticipated Discharge Date Admission Date: September 25, 2024 Subjective Seen at the bedside. No clinical change. Eager to get out of the hospital. Worked with PT, still having some difficulty raising her left foot and has steps in the home. Does have some difficulty transferring from the bed and requires a 1 assist. Physical Exam Physical Exam: General: A&Ox3. NAD. Cooperative. HEENT: Atraumatic, normocephalic. PERLAA. Vision and hearing grossly intact Pulm: CTAB A&P. -wheezes, -rales, -rhonchi. Symmetrical chest rise. No increased work of breathing. No respiratory distress. Cardiac: regular rate, irregular, -mrg. Radial pulses intact and symmetrical. Abdominal: Nontender, nondistended, soft. BS present. Ext: surgical site c/d/i. Toe wiggle intact b/l. No LE edema. Hallux refill brisk b/l Results & Data Results & Data Vital Signs (Past 12 Hours) Vital Signs Temp Pulse Pulse Pulse Resp BP BP 10/03/24 15:48 37.3 C 80 72 16 115/72 148/83 H 10/03/24 15:20 36.9 C 60 16 122/72 10/03/24 13:10 63 10/03/24 11:22 37.3 C 80 16 148/83 H 10/03/24 08:03 36.7 C 73 18 147/83 H 10/03/24 08:00 10/03/24 05:35 66 Pulse Ox O2 Del Method 10/03/24 15:48 96 10/03/24 15:20 95 Room Air 10/03/24 13:10 10/03/24 11:22 96 Room Air 10/03/24 08:03 95 Room Air 10/03/24 08:00 Room Air 10/03/24 05:35 PG Care Time/CCT Total # of Minutes Spent Total Time Spent with Patient: Total time spent is greater than 50% in coordination of care (as documented) at patient's floor/unit and/or counseling patient: Coding Level of Care Code 68541 SUB INP/OBS CARE 2/35MIN Diagnoses Intravascular volume depletion E86.1 Acute kidney injury N17.9 Atrial fibrillation, permanent I48.21 Type 2 diabetes mellitus treated with insulin E11.9; Z79.4 Benign essential hypertension I10
--- NOTE | 2024-10-04 05:36 | Electrocardiogram Report ---
Test Reason : Blood Pressure : */* mmHG Vent. Rate : 99 BPM Atrial Rate : 312 BPM P-R Int : * ms QRS Dur : 84 ms QT Int : 350 ms P-R-T Axes : * -23 -3 degrees QTcB Int : 449 ms Atrial fibrillation Low voltage QRS Poor R wave progression, consider anterior NV vs. lead placement vs. LVH Nonspecific T wave abnormality Abnormal ECG When compared with ECG of 10-Sep-2024 14:56, Vent. rate has increased by 35 bpm Confirmed by Daquan Champion ([id number]) on 10/04/2024 5:36:24 AM Referred By: Sidney Joaquin Confirmed By: Dauqan Champion
--- NOTE | 2024-10-04 05:37 | Electrocardiogram Report ---
Test Reason : Blood Pressure : */* mmHG Vent. Rate : 127 BPM Atrial Rate : * BPM P-R Int : * ms QRS Dur : 74 ms QT Int : 362 ms P-R-T Axes : * -13 -23 degrees QTcB Int : 526 ms Atrial fibrillation with rapid ventricular response Nonspecific ST and T wave abnormality Abnormal ECG When compared with ECG of 28-Sep-2024 19:55, Nonspecific T wave abnormality, worse in Anterolateral leads Confirmed by Daquan Champion ([id number]) on 10/04/2024 5:36:43 AM Referred By: Sidney Joaquin Confirmed By: Daquan Champion
== END 2024-10-03 16:58 | DRG 469 ==
LOC: ASU 06:12 → 3N 06:12 → 2S 09-29 06:56
DX: Z88.5 Allergy status to narcotic agent; E11.22 Type 2 diabetes mellitus with diabetic chronic kidney disease; D50.9 Iron deficiency anemia, unspecified; I48.0 Paroxysmal atrial fibrillation; N17.9 Acute kidney failure, unspecified; D62 Acute posthemorrhagic anemia; Z79.4 Long term (current) use of insulin; I50.33 Acute on chronic diastolic (congestive) heart failure; M17.12 Unilateral primary osteoarthritis, left knee; Q82.0 Hereditary lymphedema; I13.0 Hypertensive heart and chronic kidney disease with heart failure and stage 1 through stage 4 chronic kidney disease, or unspecified chronic kidney disease; Z86.73 Personal history of transient ischemic attack (TIA), and cerebral infarction without residual deficits; E78.5 Hyperlipidemia, unspecified; Z79.01 Long term (current) use of anticoagulants; Z79.84 Long term (current) use of oral hypoglycemic drugs; E86.9 Volume depletion, unspecified; G93.41 Metabolic encephalopathy; J96.01 Acute respiratory failure with hypoxia; A08.11 Acute gastroenteropathy due to Norwalk agent; N18.9 Chronic kidney disease, unspecified; I48.21 Permanent atrial fibrillation; Z88.2 Allergy status to sulfonamides

== ENCOUNTER 2025-02-02 10:39 | Inpatient (IN) ==
[2025-02-02 11:19] LABS: Base Excess VBG 7.5 mEq/L; HCO3 VBG 34 mmol/L; Oxygen Saturation VBG < 60.0 %; PCO2 VBG 55 mmHg (38-50); PO2 VBG 36 mmHg; pH VBG 7.40 (7.36-7.41)
[2025-02-02 11:24] LABS: Hematocrit (blood only) 25.9 % (37.0-47.0); Hemoglobin 8.3 g/dL (12.0-16.0); Immature Granulocytes # (auto) 0.04 K/uL (0.01-0.20); Immature Granulocytes % (auto) 0.4 %; Mean Corpuscular Hemoglobin 29.5 pg (25.0-34.0); Mean Corpuscular Volume 92.2 fL (80.0-100.0); Platelet Count 213 K/uL (130-400); RDW Standard Deviation 55.8 fL (36.4-46.3); Red Blood Count 2.81 M/uL (4.20-5.40); White Blood Count 9.55 K/ul (4.8-10.8)
--- NOTE | 2025-02-02 11:31 | XRay Report ---
XR chest 1V portable CLINICAL HISTORY: sob COMPARISON STUDY: 09/29/2024 FINDINGS: Stable cardiomegaly with mild pulmonary vascular congestion. There is increased hazy opacit y at the right lung base with obscuration of the right hemidiaphragm. There is stable hazy opacity at the left lung base. No pneumothorax. IMPRESSION: 1. CHF. 2. Increased hazy opacity right lung base and stable hazy opacity left lung base. This could represen t consolidation or pleural effusions. ACT 112: Negative or not required by law. Electronically signed by: Long Matt M.D. 02/02/2025 11:29 AM
[2025-02-02 11:42] LABS: INR 1.2 (0.9-1.1); Prothrombin Time 12.4 Seconds (9.0-12.0)
[2025-02-02 11:49] LABS: Alanine Aminotransferase 9.0 U/L (7-52); Albumin Globulin Ratio 0.9 (0.9-2); Albumin Level 3.5 gm/dl (3.4-5.0); Alkaline Phosphatase 127.0 U/L (34-104); Anion Gap 9.0 (3-11); Bilirubin,Total 1.0 mg/dl (0.2-1.0); Blood Urea Nitrogen 39.0 mg/dl (6-23); Calcium 9.4 mg/dl (8.6-10.3); Carbon Dioxide 31.0 mmol/L (21-32); Chloride 96.0 mmol/L (98-107); Creatinine Clr Calc Pharmacy 22.0 ml/min; Globulin 3.7 gm/dl (2.5-4.0); Glucose 267.0 mg/dl (70-99(Fasting)); Lipase 6.0 U/L (11-82); Magnesium 1.9 mg/dl (1.7-2.4); Potassium 4.3 mmol/L (3.5-5.1); Sodium 136.0 mmol/L (136-145); Total Protein 7.2 gm/dl (6.0-8.3)
--- NOTE | 2025-02-02 12:10 | Emergency Department Note ---
Impression & Plan CHF (congestive heart failure), Hypoxia, Atrial fibrillation, permanent ED Provider Note NAME: KASH ROSADO AGE: 84 SEX: F : 1940 ARRIVES VIA: Walk-In INFORMANT: Patient ED PROVIDER(S): Davion Canales MD CHIEF COMPLAINT: Shortness of breath PLAN: Disposition: Admit MEDICAL DECISION MAKING: The patient is a pleasant 84-year-old woman with a past medical history of atrial fibrillation on Eliquis, history of HFpEF, history of severe pulmonary hypertension (PASP 64) per records, hypertension, type 2 diabetes, CKD, chronic pain, anxiety who presents to the emergency department via EMS and accompanied by her son for evaluation of worsening shortness of breath over the past week. Patient denies any fevers or productive cough. She denies nausea or vomiting. Patient denies any increased weight gain or swelling in her legs. The patient presents in the setting of being admitted to [facility] from 12/26-01/04 for fluid overload and hypoxia. Patient presents to the emergency department with heart rate in the 110s and atrial fibrillation with O2 saturation 88% on room air placed on 2 L nasal cannula improving to the mid-upper 90s. Vital signs are otherwise stable. She appears hypervolemic with scant bilateral lower extremity pitting edema. Lung sounds diminished at the bases bilaterally. EKG demonstrates atrial fibrillation without overt acute ischemia. Chest x-ray demonstrates congestive change with increased right basilar opacity and stable left lung base suggestive of pleural effusions. No focal consolidation. WBC within normal limits. There is neutrophilia but no left shift. H/H similar to prior. Platelets within normal limits. Chemistry without metabolic acidosis. VBG with pCO2 of 55 with normal pH. Creatinine 1.69, similar to recent values. BNP 1599 increased from prior values but in the setting of the patient's CKD and chronic A-fib. High styptic troponin 7.0, within normal limits. Procalcitonin is not elevated. COVID-19, influenza and RSV PCR's were negative. Given the patient's hypoxia with O2 requirement the patient and her son agree with plan for admission for further management. Treatment initiated with IV Bumex. Case was discussed with Dr. Stack, [facility] hospitalist, who will evaluate the patient for admission. Further management per admitting team. Triage Nursing notes reviewed and agree them. Prior/external medical records reviewed Vital Signs: reviewed Differential diagnosis: Reactive airway disease, pneumonia, pneumothorax, COPD, CHF, infections, cardiac ischemia, pulmonary embolism, musculoskeletal, gastrointestinal, as well as other pathologies. ER treatment provided: See below. Diagnostics interpreted by me: ECG: Atrial fibrillation with RVR, 104 bpm, no overt ST elevation or depression, QTc 444, QRS 72. Cardiac Monitoring: An order for continuous cardiac monitoring was placed and demonstrated atrial fibrillation, 104 bpm, no ectopy. Laboratory studies: See below Imaging studies: See below Consultation(s): Case was discussed with Dr. Stack, [facility] hospitalist, who will evaluate the patient for admission. HPI: Per MDM. ROS: See above HPI for pertinent positives & negatives. A total of 10 systems reviewed and were otherwise negative. VITALS:See Below PHYSICAL EXAMINATION: GENERAL: Awake, alert, chronically ill-appearing, in no distress HENT: Normocephalic, atraumatic. Oropharynx unremarkable. EYES: Normal conjunctiva. Sclera non-icteric. NECK: Supple. No nuchal rigidity. FROM. No JVD. RESPIRATORY: Diminished breath sounds at bilateral lung bases. CARDIAC: Tachycardic rate, irregular rhythm. Extremities warm and well perfused. Pulses equal. ABDOMEN: Soft, non-distended. No tenderness to palpation. No rebound or guarding. No masses. MUSCULOSKELETAL: Chest examination reveals no tenderness. The back is symmetrical on inspection without obvious abnormality. There is no CVA tenderness to palpation. No joint edema. LOWER EXTREMITIES: Calves are equal size bilaterally and non-tender. Scant edema. No discoloration. NEURO: Normal sensorium. No sensory or motor deficits noted. SKIN: No rash or jaundice noted. Davion Canales MD Past Med/Surg History Problem List (Updated 02/02/25 @ 18:18 by Davion Canales MD) Hypoxia (Acute) CHF (congestive heart failure) (Acute) Hearing loss of both ears due to cerumen impaction Hyperkalemia Neck pain on right side Chronic daily headache Diarrhea Acute on chronic renal insufficiency Postoperative anemia Status post total left knee replacement Hypotension Intravascular volume depletion (HFpEF) heart failure with preserved ejection fraction Chronic anemia Injury of left great toe Right foot injury Mild cognitive impairment Gout Type 2 diabetes mellitus treated with insulin Atrial fibrillation, permanent (Acute) Dyspnea and respiratory abnormalities Pain of left hip Hypokalemia (Acute) Ambulatory dysfunction Atopic dermatitis Venous insufficiency Hypomagnesemia Neurologic gait dysfunction Falling Chronic low back pain Osteoporosis Leg edema Right shoulder pain Radiculitis, cervical Orthopnea Anticoagulant long-term use Vitamin D deficiency Lumbar spinal stenosis Lumbar radiculopathy Cervical radiculopathy Cerebral vascular disease (Acute) Dyslipidemia (Acute) Benign essential hypertension (Acute) Iron deficiency anemia (Acute) Psoriasis (Acute) Medical History (Updated 02/02/25 @ 18:18 by Davion Canales MD) Loose left total knee arthroplasty Acute kidney injury Bilateral primary osteoarthritis of knee Osteoarthritis of left knee Sacral fracture (04/02/24) Sacral/pelvic fracture from a fall- no surgery needed No current issues Compression deformity of vertebra With history of L1 compression fracture T10 compression fracture (new from 11/01/23) noted on 04/02/24 CT scan Ambulatory dysfunction uses walker or WC (no falls since 03/2024) [place] disease Usually in LEs (well controlled); can occur in UEs (stable) Bilateral lower extremity edema (HFpEF) heart failure with preserved ejection fraction EF 50-54% on 08/2023 ECHO Iron deficiency anemia Hx MRSA infection 12/2023 > left great toe > resolved Hyperlipemia HTN (hypertension) Gout no recent issues Osteoporosis Atrial fibrillation no pacer, med controlled > Dr. 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 History of stroke 2001 > no residual issues GERD (gastroesophageal reflux disease) well controlled and stable Asthma rare res inh use breathing stable and controlled Controlled type 2 diabetes mellitus with diabetic neuropathy Surgical History (Updated 10/22/24 @ 11:37 by Dustin Richard MD) Status post left knee replacement Hx of oral surgery (01/16/23) Excision of Ulcer and Fibroma of Right Lower Lip(Right) - Peter Call, DMD History of colonoscopy History of tooth extraction Hx of breast reduction, elective History of surgery on arm nerve surgery left History of lumbar surgery no fusion Hx of cervical spine surgery ROM up and down is very limited per pt > unsure of numbers History of cardiac cath remote hx > no stents History of cataract surgery bilateral History of tonsillectomy and adenoidectomy History of appendectomy H/O right hemicolectomy History of hysterectomy History of cholecystectomy Family History Father Myocardial infarction Hx of CABG Mother Alzheimer disease Denies family history of Ovarian cancer Prostate cancer Breast cancer Colorectal cancer Social History Smoking Status: Never smoker Second Hand Exposure: Yes (at work many years ago); Do You Dip or Chew Tobacco: No; Hx Alcohol Use: No Hx Substance Use: No Preferred Language: Amharic Communication Ability: Effective Visual Impairment: Partially Limited Hearing Ability: Normal Occasional Babysitter Required: No Beliefs That Will Affect Care: None marital status: Current Living Situation: Alone Current Living Situation Comment: 2 dogs current occupational status: retired Feels Safe at Home: Yes Childhood Exposure to Second-Hand Smoke: Yes caffeine: Yes (soda - coke) Dental Care, Regularly: Yes Physical Activity Frequency: 3-4 Times per Week Seatbelt Use: always Sunscreen Use: Yes Do you think of yourself as: straight/heterosexual Assistive Devices: Cane, Nebulizer, Walker and Wheelchair Allergies Allergies Allergy/AdvReac Type Severity Reaction Status Date / Time oxycodone Allergy Severe Generalized Verified 01/12/25 14:41 rash sulfamethoxazole Allergy Severe weakness, Verified 01/12/25 14:41 [From Bactrim] hallucinations trimethoprim [From Bactrim] Allergy Severe weakness, Verified 01/12/25 14:41 hallucinations adhesive tape Allergy Intermediate Rash Verified 01/12/25 14:41 gabapentin [From Neurontin] Allergy Intermediate leg Verified 01/12/25 14:41 swelling lisinopril Allergy Intermediate Rash Verified 01/12/25 14:41 fentanyl Allergy Unknown Unknown Verified 01/12/25 14:41 Home Meds Home Medications Medication Instructions Recorded Confirmed docusate sodium 100 mg capsule 100 mg PO DAILY PRN Constipation 09/28/23 02/02/25 (Colace) metolazone 2.5 mg tablet 2.5 mg PO 3XWK 11/02/23 02/02/25 meclizine 25 mg tablet 25 mg PO BID vertigo 04/25/24 02/02/25 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 sensor (FreeStyle 04/30/24 02/02/25 Ledy 3 Sensor device) allopurinol 100 mg tablet 100 mg PO QAM 09/04/24 02/02/25 cholecalciferol (vitamin D3) 25 1,000 unit PO BID 09/04/24 02/02/25 mcg (1,000 unit) capsule (Vitamin D3) ibandronate 150 mg tablet 150 mg PO MONTHLY 09/04/24 02/02/25 acetaminophen 325 mg tablet 650 mg PO Q6H PRN Pain 12/22/24 02/02/25 cholestyramine 4 gram oral powder 4 g PO DAILY 12/22/24 02/02/25 (Cholestyramine Light) diltiazem HCl 240 mg 240 mg PO QAM 01/06/25 02/02/25 capsule,extended release 24 hr ferrous sulfate 325 mg (65 mg 325 mg PO Q OTHER DAY 01/06/25 02/02/25 iron) tablet (Anita-Time) potassium chloride 10 mEq 40 meq PO DAILY 01/06/25 02/02/25 capsule,extended release torsemide 20 mg tablet 100 mg PO DAILY 01/06/25 02/02/25 Previous Rx's Medication Instructions Recorded blood sugar diagnostic (OneTouch #100 ea 02/09/20 Ultra Blue Test Strip) lancets 33 gauge (OneTouch Delica #100 ea 02/09/20 Lancets) nitroglycerin 0.4 mg sublingual 0.4 mg sublingual Q5M PRN chest 02/09/20 tablet (Nitrostat) pain #20 tabs blood sugar diagnostic #50 ea 05/10/20 naloxone 4 mg/actuation nasal spray 4 mg intranasal Q2M #2 ea 07/11/21 multivitamin (Daily Multi-Vitamin 1 tab PO DAILY #90 tabs 02/12/23 tablet) triamcinolone acetonide 0.1 % 1 applic topical BID PRN skin 05/04/23 topical cream irritation #453.6 grams albuterol sulfate 90 mcg/actuation 2 puff inhalation Q4H PRN 05/14/23 aerosol inhaler shortness of breath or wheezing #8.5 grams Wheelchair (Manual) #1 ea 08/30/23 lorazepam 0.5 mg tablet 0.5 mg PO DAILY PRN anxiety #7 tabs 11/01/23 omeprazole 40 mg capsule,delayed 40 mg PO QAM #90 caps 12/12/23 release atorvastatin 40 mg tablet 40 mg PO QPM #90 tabs 03/05/24 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,milk receiver,cont #1 ea 04/25/24 (FreeStyle Ledy 3 Hayden) nystatin 100,000 unit/gram topical 1 applic topical BID #30 grams 04/25/24 cream colchicine 0.6 mg capsule 0.6 mg PO BID #60 caps 04/28/24 pen needle, diabetic 32 gauge x #100 ea 05/06/24/" duloxetine 60 mg capsule,delayed 60 mg PO HS #90 caps 05/14/24 release mupirocin 2 % topical ointment 1 applic topical BID #22 grams 05/21/24 mecobalamin (vitamin B12) 1,000 1,000 mcg sublingual DAILY #30 tabs 06/17/24 mcg disintegrating tablet,sublingual cyanocobalamin (vitamin B-12) 1,000 mcg PO DAILY #30 caps 06/18/24 1,000 mcg capsule clonidine HCl 0.2 mg tablet 0.2 mg PO .COMPLEX #270 tabs 06/25/24 disposable gloves #200 ea 07/16/24 Incontinence pads, medium #60 ea 07/17/24 Rubber Gloves, medium #1 ea 07/17/24 Wipes #200 ea 07/17/24 adult brief, s/m, disposable #150 ea 07/17/24 chucks #30 ea 07/17/24 apixaban 2.5 mg tablet (Eliquis) 2.5 mg PO BID #60 tabs 07/28/24 diclofenac sodium 1 % topical gel 4 g topical QID PRN L knee pain 08/20/24 #200 grams metoprolol tartrate 100 mg tablet 150 mg (1.5 x 100 mg) PO BID #270 11/17/24 tabs insulin glargine 100 unit/mL (3 14 unit (0.14 mL) subcut HS #15 mL 01/06/25 mL) subcutaneous pen (Lantus Solostar U-100 Insulin) magnesium oxide 400 mg PO TID #90 caps 01/12/25 hydralazine 50 mg tablet 50 mg PO QID #120 tabs 01/19/25 fluticasone 500 mcg-salmeterol 50 1 inh inhalation BID #60 ea 02/02/25 mcg/dose blistr powdr for inhalation hydrocodone 5 mg-acetaminophen 325 1 tab PO QID PRN pain M17.0 #120 02/02/25 mg tablet tabs Results & Data (ED) Vital Signs Vital Signs - 24 hr 02/02/25 10:41 02/02/25 10:47 02/02/25 10:53 Temperature Source Temporal Artery Scan Pulse Rate 111 H Pulse Rate [Apical] Respiratory Rate 22 Respiratory Effort / Characteristics Non-Labored Spontaneous Respiratory Depth Normal Respiratory Pattern Regular Blood Pressure 125/75 Blood Pressure [Right Arm] Blood Pressure Mean 91 Blood Pressure Mean [Right Arm] Pulse Oximetry 88 L Oxygen Delivery Method Room Air Nasal Cannula Nasal Cannula Oxygen Flow Rate 2 2 Sepsis Recent Fever Within 48 Hours No Sepsis New/Unexplained Change in Mental Status No Sepsis Action Taken by Nursing No Action Required 02/02/25 11:23 02/02/25 11:39 02/02/25 13:00 Temperature Source Pulse Rate 97 H Pulse Rate [Apical] 98 H 87 Respiratory Rate 20 18 Respiratory Effort / Characteristics Respiratory Depth Respiratory Pattern Blood Pressure Blood Pressure [Right Arm] 121/93 130/67 Blood Pressure Mean Blood Pressure Mean [Right Arm] 102 88 Pulse Oximetry 99 99 Oxygen Delivery Method Nasal Cannula Nasal Cannula Oxygen Flow Rate 2 2 Sepsis Recent Fever Within 48 Hours Sepsis New/Unexplained Change in Mental Status Sepsis Action Taken by Nursing Laboratory Data 02/02/25 11:05 02/02/25 11:05 Lab Results 02/02/25 02/02/25 Range/Units 11:05 11:34 WBC 9.55 (4.8-10.8) K/ul RBC 2.81 L (4.20-5.40) M/uL Hgb 8.3 L (12.0-16.0) g/dL Hct 25.9 L (37.0-47.0) % MCV 92.2 (80.0-100.0) fL MCH 29.5 (25.0-34.0) pg MCHC 32.0 (32.0-36.0) g/dL RDW Std Deviation 55.8 H (36.4-46.3) fL RDW Coeff of Sherine 16.6 H (11.5-14.5) % Plt Count 213 (130-400) K/uL MPV 10.5 (9.4-12.4) fL Immature Gran % (Auto) 0.4 % Neut % (Auto) 82.8 % Lymph % (Auto) 7.9 % Garvin % (Auto) 7.9 % Eos % (Auto) 0.8 % Baso % (Auto) 0.2 % Neut # (Auto) 7.91 H (1.40-6.50) K/uL Lymph # (Auto) 0.75 L (1.20-3.40) K/uL Garvin # (Auto) 0.75 H (0.11-0.59) K/uL Eos # (Auto) 0.08 (0.00-0.50) K/uL Baso # (Auto) 0.02 (0.00-0.20) K/uL Immature Gran # (Auto) 0.04 (0.01-0.20) K/uL PT 12.4 H (9.0-12.0) Seconds INR 1.2 H (0.9-1.1) VBG pH 7.40 (7.36-7.41) VBG pCO2 55 H (38-50) mmHg VBG pO2 36 mmHg VBG HCO3 34 mmol/L VBG O2 Saturation < 60.0 % VBG Base Excess 7.5 mEq/L Sodium 136 (136-145) mmol/L Potassium 4.3 (3.5-5.1) mmol/L Chloride 96 L (98-107) mmol/L Carbon Dioxide 31 (21-32) mmol/L Anion Gap 9 (3-11) BUN 39 H (6-23) mg/dl Creatinine 1.69 H (0.6-1.2) mg/dl Est Cr Clr Drug Dosing 22.0 ml/min eGFR 29.97 BUN/Creatinine Ratio 23.1 H (10-20) Glucose 267 H (70-99(Fasting)) mg/dl Calcium 9.4 (8.6-10.3) mg/dl Magnesium 1.9 (1.7-2.4) mg/dl Total Bilirubin 1.0 (0.2-1.0) mg/dl AST 12 L (13-39) U/L ALT 9 (7-52) U/L Alkaline Phosphatase 127 H (34-104) U/L Troponin I High Sens 7.0 (0-14) pg/ml B-Natriuretic Peptide 1599 H (0-100) pg/ml Total Protein 7.2 (6.0-8.3) gm/dl Albumin 3.5 (3.4-5.0) gm/dl Globulin 3.7 (2.5-4.0) gm/dl Albumin/Globulin Ratio 0.9 (0.9-2) Lipase 6 L (11-82) U/L Procalcitonin 0.13 (0-0.5) ng/ml SARS-CoV-2 (PCR) NEGATIVE (Negative) Influenza Type A (PCR) Negative (Neg) Influenza Type B (PCR) Negative (Neg) RSV (RT-PCR) Negative (Neg) Administered Medications Insulin Aspart (Insulin Aspart Per Unit Charge) 0 units SC ACHS MODESTA Stop: 03/04/25 16:29 Last Admin: 02/02/25 17:36 Dose: Not Given Documented By: bernice Co-signed By: ESEQUIEL Magnesium Oxide (Magnesium Oxide 400 Mg Tab) 400 mg PO TID [facility] Stop: 03/04/25 13:59 Last Admin: 02/02/25 15:20 Dose: 400 mg Documented By: ELIAS Metolazone (Metolazone 2.5 Mg Tablet) 2.5 mg PO MoWeFr [facility] Stop: 03/04/25 14:00 Last Admin: 02/02/25 15:20 Dose: 2.5 mg Documented By: ELIAS Discontinued Medications Bumetanide 4 mg/ Syringe 16 mls @ 4 mls/min IV ONE ONE Stop: 02/02/25 12:36 Last Admin: 02/02/25 13:10 Dose: 4 mls/min Documented By: ELIAS Imaging Data Radiologist's Impression: Chest X-Ray 02/02/25 10:53 XR chest 1V portable CLINICAL HISTORY: sob COMPARISON STUDY: 09/29/2024 FINDINGS: Stable cardiomegaly with mild pulmonary vascular congestion. There is increased hazy opacity at the right lung base with obscuration of the right hemidiaphragm. There is stable hazy opacity at the left lung base. No pneumothorax. IMPRESSION: 1. CHF. 2. Increased hazy opacity right lung base and stable hazy opacity left lung base. This could represent consolidation or pleural effusions. ACT 112: Negative or not required by law. Electronically signed by: Long Matt M.D. 02/02/2025 11:29 AM Discharge Plan Visit Data Chief Complaint: Shortness of Breath/Dyspnea Stated Complaint: CAN'T BREATHE, SOB, CONFUSION ED Provider: Davion Canales Discharge Problem: CHF (congestive heart failure), Hypoxia, Atrial fibrillation, permanent Patient Disposition: Admitted As Inpatient Condition: Fair Discharge Problem: CHF (congestive heart failure) Qualifiers: Heart failure type: unspecified Heart failure chronicity: acute on chronic Q ualified Code(s): I50.9 - Heart failure, unspecified
[2025-02-02 12:24] LABS: Influenza A virus by PCR Negative (Neg); Influenza B virus by PCR Negative (Neg); SARS CoV2 RNA(COVID-19) Ceph NEGATIVE (Negative)
[2025-02-02] MEDS: BUMETANIDE 4 MG in SYRINGE 0 ML IV ONE (13:10)
--- NOTE | 2025-02-02 13:33 | History & Physical Report ---
Date of Service February 02, 2025 Assessment & Plan (1) (HFpEF) heart failure with preserved ejection fraction: (2) Atrial fibrillation, permanent: (3) Type 2 diabetes mellitus treated with insulin: (4) Iron deficiency anemia: Plan 84-year-old female with recent admissions to [facility] including intubation for heart failure preserved ejection fraction exacerbation/ BRASH syndrome who presents with 1 week history of escalating shortness of breath found to be with pulmonary congestive changes consistent with heart failure preserved ejection fraction exacerbation. Patient and family deny dietary medication indiscretion. In the emergency department the patient had negative viral screen for COVID influenza and RSV. X-ray was consistent with heart failure not pneumonia. #Acute exacerbation of heart failure preserved ejection fraction. Given complexities of the patient with most recent frequent hospitalizations being on multiple cardiac medications including Cardizem metoprolol clonidine hydralazine (recently stopping losartan) and with a history of preserved ejection fraction will consult cardiology for further evaluation to see whether these medications and/or uncontrolled atrial fibrillation may be the nidus of her exacerbation. In the meantime we will use Bumex therapy at 3 mg twice daily as the patient previously was on torsemide either 60 or 100 mg daily dose. #Permanent atrial fibrillation. Continue rate controlling agents with Cardizem and metoprolol and anticoagulated with apixaban #Insulin requiring diabetes. Uncontrolled. Patient states she typically is only on Lantus insulin at home. To this end we will keep her Lantus and added sliding scale insulin. Will check a hemoglobin A1c. She will continue to her ledy meter. Will hold any oral medications at this time. #Iron deficiency anemia. The patient remains with a hemoglobin of 8.3. She typically is on supplements of both B12 and iron at home. Will check an iron level iron-binding capacity and B12 level in the morning of 02/03. #DVT prevention is Eliquis therapy. Goals of care discussion was had emergency department. The patient and her son feel the patient should be a full code which states to continue with aggressive treatment. History of Present Illness Primary Care Provider: Dustin Richard MD 84-year-old female recently discharged from [facility] for exacerbation of heart failure preserved ejection fraction, severe pulmonary hypertension, presents with increasing shortness of breath over the last 1 week and confusion at night. Patient has chronic bilateral arm and lower back pain. Previously prescribed hydrocodone. She has a history of permanent atrial fibrillation and that in the past has been difficult to control. She follows with Dr. Champion and primary care Dr. Richard Patient denies any dietary or medication indiscretion says she just began feeling short of breath. The patient cannot sense when she is with having tachycardia from her A-fib In the emergency room she is in rate controlled atrial fibrillation no current of injury troponin was negative and chest x-ray was consistent with cardiomegaly and bilateral pulmonary edema. She was given 4 mg of Bumex intravenously Allergies Allergy/AdvReac Type Severity Reaction Status Date / Time oxycodone Allergy Severe Generalized Verified 01/12/25 14:41 rash sulfamethoxazole Allergy Severe weakness, Verified 01/12/25 14:41 [From Bactrim] hallucinations trimethoprim [From Bactrim] Allergy Severe weakness, Verified 01/12/25 14:41 hallucinations adhesive tape Allergy Intermediate Rash Verified 01/12/25 14:41 gabapentin [From Neurontin] Allergy Intermediate leg Verified 01/12/25 14:41 swelling lisinopril Allergy Intermediate Rash Verified 01/12/25 14:41 fentanyl Allergy Unknown Unknown Verified 01/12/25 14:41 Home Medications Medication Instructions Recorded Confirmed Type blood sugar diagnostic (Upheaval ArtsTouch #100 ea 02/09/20 02/02/25 Rx Ultra Blue Test Strip) lancets 33 gauge (OneTouch Delica #100 ea 02/09/20 02/02/25 Rx Lancets) nitroglycerin 0.4 mg sublingual 0.4 mg sublingual Q5M PRN chest 02/09/20 02/02/25 Rx tablet (Nitrostat) pain #20 tabs blood sugar diagnostic #50 ea 05/10/20 02/02/25 Rx naloxone 4 mg/actuation nasal spray 4 mg intranasal Q2M #2 ea 07/11/21 02/02/25 Rx multivitamin (Daily Multi-Vitamin 1 tab PO DAILY #90 tabs 02/12/23 02/02/25 Rx tablet) triamcinolone acetonide 0.1 % 1 applic topical BID PRN skin 05/04/23 02/02/25 Rx topical cream irritation #453.6 grams albuterol sulfate 90 mcg/actuation 2 puff inhalation Q4H PRN 05/14/23 02/02/25 Rx aerosol inhaler shortness of breath or wheezing #8.5 grams Wheelchair (Manual) #1 ea 08/30/23 02/02/25 Rx docusate sodium 100 mg capsule 100 mg PO DAILY PRN Constipation 09/28/23 02/02/25 History (Colace) lorazepam 0.5 mg tablet 0.5 mg PO DAILY PRN anxiety #7 tabs 11/01/23 02/02/25 Rx metolazone 2.5 mg tablet 2.5 mg PO 3XWK 11/02/23 02/02/25 History omeprazole 40 mg capsule,delayed 40 mg PO QAM #90 caps 12/12/23 02/02/25 Rx release fluticasone 500 mcg-salmeterol 50 1 inh inhalation BID #60 ea 02/25/24 02/02/25 Rx mcg/dose blistr powdr for inhalation atorvastatin 40 mg tablet 40 mg PO QPM #90 tabs 03/05/24 02/02/25 Rx 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,regional operations director,cont #1 ea 04/25/24 02/02/25 Rx (FreeStyle Ledy 3 [place]) meclizine 25 mg tablet 25 mg PO BID vertigo 04/25/24 02/02/25 History nystatin 100,000 unit/gram topical 1 applic topical BID #30 grams 04/25/24 02/02/25 Rx cream colchicine 0.6 mg capsule 0.6 mg PO BID #60 caps 04/28/24 02/02/25 Rx 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 sensor (FreeStyle 04/30/24 02/02/25 History Ledy 3 Sensor device) pen needle, diabetic 32 gauge x #100 ea 05/06/24 02/02/25 Rx 5/32" duloxetine 60 mg capsule,delayed 60 mg PO HS #90 caps 05/14/24 02/02/25 Rx release mupirocin 2 % topical ointment 1 applic topical BID #22 grams 05/21/24 02/02/25 Rx mecobalamin (vitamin B12) 1,000 1,000 mcg sublingual DAILY #30 tabs 06/17/24 02/02/25 Rx mcg disintegrating tablet,sublingual cyanocobalamin (vitamin B-12) 1,000 mcg PO DAILY #30 caps 06/18/24 02/02/25 Rx 1,000 mcg capsule clonidine HCl 0.2 mg tablet 0.2 mg PO .COMPLEX #270 tabs 06/25/24 02/02/25 Rx disposable gloves #200 ea 07/16/24 02/02/25 Rx Incontinence pads, medium #60 ea 07/17/24 02/02/25 Rx Rubber Gloves, medium #1 ea 07/17/24 02/02/25 Rx Wipes #200 ea 07/17/24 02/02/25 Rx adult brief, s/m, disposable #150 ea 07/17/24 02/02/25 Rx chucks #30 ea 07/17/24 02/02/25 Rx apixaban 2.5 mg tablet (Eliquis) 2.5 mg PO BID #60 tabs 07/28/24 02/02/25 Rx diclofenac sodium 1 % topical gel 4 g topical QID PRN L knee pain 08/20/24 02/02/25 Rx #200 grams allopurinol 100 mg tablet 100 mg PO QAM 09/04/24 02/02/25 History cholecalciferol (vitamin D3) 25 1,000 unit PO BID 09/04/24 02/02/25 History mcg (1,000 unit) capsule (Vitamin D3) ibandronate 150 mg tablet 150 mg PO MONTHLY 09/04/24 02/02/25 History metoprolol tartrate 100 mg tablet 150 mg (1.5 x 100 mg) PO BID #270 11/17/24 02/02/25 Rx tabs hydrocodone 5 mg-acetaminophen 325 1 tab PO QID PRN pain M17.0 #120 12/08/24 02/02/25 Rx mg tablet tabs acetaminophen 325 mg tablet 650 mg PO Q6H PRN Pain 12/22/24 02/02/25 History cholestyramine 4 gram oral powder 4 g PO DAILY 12/22/24 02/02/25 History (Cholestyramine Light) diltiazem HCl 240 mg 240 mg PO QAM 01/06/25 02/02/25 History capsule,extended release 24 hr ferrous sulfate 325 mg (65 mg 325 mg PO Q OTHER DAY 01/06/25 02/02/25 History iron) tablet (Anita-Time) insulin glargine 100 unit/mL (3 14 unit (0.14 mL) subcut HS #15 mL 01/06/25 02/02/25 Rx mL) subcutaneous pen (Lantus Solostar U-100 Insulin) potassium chloride 10 mEq 40 meq PO DAILY 01/06/25 02/02/25 History capsule,extended release torsemide 20 mg tablet 100 mg PO DAILY 01/06/25 02/02/25 History magnesium oxide 400 mg PO TID #90 caps 01/12/25 02/02/25 Rx hydralazine 50 mg tablet 50 mg PO QID #120 tabs 01/19/25 02/02/25 Rx Past Med/Surg History Problem List (Updated 02/02/25 @ 12:44 by Davion Canales MD) Hypoxia (Acute) CHF (congestive heart failure) (Acute) Hearing loss of both ears due to cerumen impaction Hyperkalemia Neck pain on right side Chronic daily headache Diarrhea Acute on chronic renal insufficiency Postoperative anemia Status post total left knee replacement Hypotension Intravascular volume depletion (HFpEF) heart failure with preserved ejection fraction Chronic anemia Injury of left great toe Right foot injury Mild cognitive impairment Gout Type 2 diabetes mellitus treated with insulin Atrial fibrillation, permanent Dyspnea and respiratory abnormalities Pain of left hip Hypokalemia (Acute) Ambulatory dysfunction Atopic dermatitis Venous insufficiency Hypomagnesemia Neurologic gait dysfunction Falling Chronic low back pain Osteoporosis Leg edema Right shoulder pain Radiculitis, cervical Orthopnea Anticoagulant long-term use Vitamin D deficiency Lumbar spinal stenosis Lumbar radiculopathy Cervical radiculopathy Cerebral vascular disease (Acute) Dyslipidemia (Acute) Benign essential hypertension (Acute) Iron deficiency anemia (Acute) Psoriasis (Acute) Medical History (Updated 02/02/25 @ 12:44 by Davion Canales MD) Loose left total knee arthroplasty Acute kidney injury Bilateral primary osteoarthritis of knee Osteoarthritis of left knee Sacral fracture (04/02/24) Sacral/pelvic fracture from a fall- no surgery needed No current issues Compression deformity of vertebra With history of L1 compression fracture T10 compression fracture (new from 11/01/23) noted on 04/02/24 CT scan Ambulatory dysfunction uses walker or WC (no falls since 03/2024) [place] disease Usually in LEs (well controlled); can occur in UEs (stable) Bilateral lower extremity edema (HFpEF) heart failure with preserved ejection fraction EF 50-54% on 08/2023 ECHO Iron deficiency anemia Hx MRSA infection 12/2023 > left great toe > resolved Hyperlipemia HTN (hypertension) Gout no recent issues Osteoporosis Atrial fibrillation no pacer, med controlled > Dr. 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 History of stroke 2001 > no residual issues GERD (gastroesophageal reflux disease) well controlled and stable Asthma rare res inh use breathing stable and controlled Controlled type 2 diabetes mellitus with diabetic neuropathy Surgical History (Updated 10/22/24 @ 11:37 by Dustin Richard MD) Status post left knee replacement Hx of oral surgery (01/16/23) Excision of Ulcer and Fibroma of Right Lower Lip(Right) - Peter Call, DMD History of colonoscopy History of tooth extraction Hx of breast reduction, elective History of surgery on arm nerve surgery left History of lumbar surgery no fusion Hx of cervical spine surgery ROM up and down is very limited per pt > unsure of numbers History of cardiac cath remote hx > no stents History of cataract surgery bilateral History of tonsillectomy and adenoidectomy History of appendectomy H/O right hemicolectomy History of hysterectomy History of cholecystectomy Family History Father Myocardial infarction Hx of CABG Mother Alzheimer disease Denies family history of Ovarian cancer Prostate cancer Breast cancer Colorectal cancer Social History Smoking Status: Never smoker Second Hand Exposure: Yes (at work many years ago); Do You Dip or Chew Tobacco: No; Hx Alcohol Use: No Hx Substance Use: No Preferred Language: French Communication Ability: Effective Visual Impairment: Partially Limited Hearing Ability: Normal Nursing Program Coordinator Required: No Beliefs That Will Affect Care: None marital status: Current Living Situation: Alone Current Living Situation Comment: 2 dogs current occupational status: retired Feels Safe at Home: Yes Childhood Exposure to Second-Hand Smoke: Yes caffeine: Yes (soda - coke) Dental Care, Regularly: Yes Physical Activity Frequency: 3-4 Times per Week Seatbelt Use: always Sunscreen Use: Yes Do you think of yourself as: straight/heterosexual Assistive Devices: Cane, Nebulizer, Walker and Wheelchair Review of Systems Review of Systems: Mild distress and fatigue (improved since given Bumex in the emergency department) no headache, no visual changes no speech or swallowing issues no chest pain, pressure or palpitations Escalating shortness of breath first with exertion and then at rest. No coughing no abdominal pain, nausea or vomiting, did have constipation now resolved no dysuria, hematuria or frequency no focal joint pain typically patient has swelling in the upper extremities when they have the exacerbation they are currently swollen Chronic daily nonradicular back pain, CVA tenderness no bruising, bleeding or rashes no focal signs of weakness or numbness or altered sensation no complaints of anxiety or depression.. Physical Exam Physical Exam: The patient appeared in mild to moderate distress improving Vital signs as documented. Head exam is normocephalic atraumatic Neck is without JVD (difficult to determine), thyromegaly, or carotid bruits. Lungs are completely diminished at the left base consistent with her cardiomegaly otherwise fine rales Cardiac exam, irregular rate controlled slight murmur systolic in the right upper sternal border Abdominal exam reveals normal bowel sounds, soft non tender, no masses Extremities are trace pretibial edema, mild hand edema and both pedal pulses are present Neurologic exam is alert and oriented, no focal loss of strength or sensation Skin is without bruises or rashes Psychologically is without concerns for anxiety or depression.. Results & Data Results & Data Vital Signs (Past 12 Hours) Vital Signs Pulse Pulse Resp BP BP Pulse Ox O2 Del Method 02/02/25 13:00 87 18 130/67 99 Nasal Cannula 02/02/25 11:39 98 H 20 121/93 99 Nasal Cannula 02/02/25 11:23 97 H 02/02/25 10:53 Nasal Cannula 02/02/25 10:47 Nasal Cannula 02/02/25 10:41 111 H 22 125/75 88 L Room Air O2 Flow Rate 02/02/25 13:00 2 02/02/25 11:39 2 02/02/25 11:23 02/02/25 10:53 2 02/02/25 10:47 2 02/02/25 10:41 Laboratory Results Reviewed CBC mild anemia previous history of iron deficiency Reviewed chemistry near baseline chronic kidney disease stage IV Reviewed troponin normal Reviewed BNP 1599 Glucose in the emergency department is controlled at 267 Code Status & VTE Plan VTE Prophylaxis Plan VTE Prophylaxis will be ordered: Yes PG Care Time/CCT Total # of Minutes Spent Total Time Spent with Patient: Total time spent is greater than 50% in coordination of care (as documented) at patient's floor/unit and/or counseling patient: Coding Level of Care Code 65190 INT INP/OBS CARE 3/75MIN Diagnoses (HFpEF) heart failure with preserved ejection fraction I50.30 Atrial fibrillation, permanent I48.21 Type 2 diabetes mellitus treated with insulin E11.9; Z79.4 Iron deficiency anemia D50.9
[2025-02-02] MEDS ORDERED: ALBUTEROL HFA 8 GM INHALER INH PRN (14:01)
[2025-02-02] MEDS ORDERED: DICLOFENAC SOD 1% GEL 100 GM TUBE EXT PRN (14:01)
[2025-02-02] MEDS ORDERED: GLUCAGON FOR INJ 1 MG VIAL SQ PRN (14:01)
[2025-02-02] MEDS ORDERED: GLUCOSE 10 TAB/TUBE PO PRN (14:01)
[2025-02-02] MEDS ORDERED: NITROGLYCERIN SL 0.4 MG/TAB TAB SL PRN (14:01)
[2025-02-02] MEDS ORDERED: ONDANSETRON INJ 2 MG/ML 2 ML VIAL IV PRN (14:01)
[2025-02-02] MEDS ORDERED: DOCUSATE SODIUM 100 MG CAP PO PRN (14:01)
[2025-02-02] MEDS ORDERED: DEXTROSE 50% 50 ML SYRINGE IV PRN (14:01)
[2025-02-02] MEDS ORDERED: LORazepam 0.5 MG TAB PO PRN (14:01)
[2025-02-02] MEDS ORDERED: CARBOHYDRATES FOR HYPOGLYCEMIA PO PRN (14:01)
[2025-02-02] MEDS ORDERED: ACETAMINOPHEN 325 MG TAB PO PRN (14:01)
[2025-02-02] MEDS ORDERED: GLUCOSE 40% GEL 15 GM TUBE PO PRN (14:01)
--- NOTE | 2025-02-02 14:57 | Electrocardiogram Report ---
Test Reason : Blood Pressure : */* mmHG Vent. Rate : 104 BPM Atrial Rate : * BPM P-R Int : * ms QRS Dur : 72 ms QT Int : 338 ms P-R-T Axes : * -30 34 degrees QTcB Int : 444 ms Atrial fibrillation with rapid ventricular response Left axis deviation Nonspecific T wave abnormality Abnormal ECG When compared with ECG of 29-Sep-2024 07:08, Nonspecific T wave abnormality, improved in Inferior leads Nonspecific T wave abnormality no longer evident in Anterolateral leads Confirmed by Riky Jones ([id number]) on 02/02/2025 2:56:48 PM Referred By: Confirmed By: Riky Jones
[2025-02-02] MEDS: MAGNESIUM OXIDE 400 MG TAB PO SCH (15:20)
[2025-02-02] MEDS ORDERED: BLOOD GLUCOSE SENSOR SCH (16:30)
[2025-02-02] MEDS: INSULIN ASPART PER UNIT CHARGE SC SCH (17:36)
[2025-02-02] MEDS: BUMETANIDE 3 MG in SYRINGE 0 ML IV SCH (18:44)
[2025-02-02] MEDS: ATORVASTATIN 40 MG TAB PO SCH (21:36)
[2025-02-02] MEDS: METOPROLOL TARTRATE 50 MG TAB PO SCH (21:36)
[2025-02-02] MEDS: CHOLESTYRAMINE LIGHT 4 GM PKT PO SCH (21:36)
[2025-02-02] MEDS: APIXABAN 2.5 MG TAB PO SCH (21:38)
[2025-02-02] MEDS: LANTUS PER UNIT CHARGE SC SCH (21:46)
--- NOTE | 2025-02-03 07:17 | Hospitalist Progress Note ---
Date of Service February 03, 2025 Assessment & Plan (1) (HFpEF) heart failure with preserved ejection fraction: (2) Atrial fibrillation, permanent: (3) Type 2 diabetes mellitus treated with insulin: (4) Iron deficiency anemia: Plan 84-year-old female with recent admissions to [facility] including intubation for heart failure preserved ejection fraction exacerbation/ BRASH syndrome who presents with 1 week history of escalating shortness of breath found to be with pulmonary congestive changes consistent with heart failure preserved ejection fraction exacerbation. Patient and family deny dietary medication indiscretion. In the emergency department the patient had negative viral screen for COVID influenza and RSV. X-ray was consistent with heart failure not pneumonia. #Acute exacerbation of heart failure preserved ejection fraction. Given complexities of the patient with most recent frequent hospitalizations being on multiple cardiac medications including Cardizem metoprolol clonidine hydralazine (recently stopping losartan) and with a history of preserved ejection fraction consult cardiology will consider multiday event monitor and engagement with Heart failure clinic. Her home regimen is complex, consider if need to change clonidine to transdermal and ? if hydralazine qid is needed as does not have reduced EF to benefit from afterload reduction, can we spironolactone to try to stop hydralazine to make compliance easier. will need to choose home diuretic dose. Pt feels she needs home oxygen will start with nocturnal oxymetry test #Permanent atrial fibrillation. Continue rate controlling agents with Cardizem and metoprolol and anticoagulated with apixaban #Insulin requiring diabetes. Uncontrolled. Patient states she typically is only on Lantus insulin at home. To this end we will keep her Lantus and added sliding scale insulin. Will check a hemoglobin A1c. She will continue to her sridhar meter. Will hold any oral medications at this time. Chronic Kidney disease stage 3 #Iron deficiency anemia. The patient remains with a hemoglobin of 8.3. She typically is on supplements of both B12 and iron at home. Will check an iron level iron-binding capacity and B12 level in the morning of 02/04. #DVT prevention is Eliquis therapy. Goals of care discussion was had emergency department. The patient and her son feel the patient should be a full code which states to continue with aggressive treatment. Admission and Anticipated Discharge Date Admission Date: February 02, 2025 Subjective pt states she feels improved, she is less swollen and feels less short of breath Physical Exam Physical Exam: cardiac exam is irregular and rate controlled lungs are diminished at the left base otherwise clear abd is soft and non tender ext with trace edema Results & Data Results & Data Vital Signs (Past 12 Hours) Vital Signs Pulse Pulse Resp BP BP Pulse Ox Pulse Ox 02/03/25 07:08 89 02/03/25 07:00 87 18 147/87 H 98 02/03/25 06:00 84 18 153/93 H 98 02/03/25 05:30 84 18 97 02/03/25 05:00 75 18 144/97 H 97 02/03/25 04:00 80 17 132/76 97 02/03/25 03:00 88 17 127/95 97 02/03/25 02:00 81 19 128/71 99 02/03/25 01:00 79 22 128/74 99 02/03/25 00:30 16 95 02/03/25 00:00 91 H 21 121/78 91 02/03/25 00:00 100 02/02/25 23:30 21 107/72 94 02/02/25 23:00 88 19 122/63 96 02/02/25 22:31 82 02/02/25 19:48 100 H 16 98 02/02/25 19:45 96 H 19 124/77 100 O2 Del Method O2 Del Method O2 Flow Rate O2 Flow Rate 02/03/25 07:08 02/03/25 07:00 Nasal Cannula 1 02/03/25 06:00 Nasal Cannula 1 02/03/25 05:30 Nasal Cannula 1 02/03/25 05:00 Nasal Cannula 1 02/03/25 04:00 Nasal Cannula 1 02/03/25 03:00 Nasal Cannula 1 02/03/25 02:00 Nasal Cannula 2 02/03/25 01:00 Nasal Cannula 2 02/03/25 00:30 Nasal Cannula 2 02/03/25 00:00 Nasal Cannula 2 02/03/25 00:00 Nasal Cannula 2 02/02/25 23:30 Nasal Cannula 2 02/02/25 23:00 Nasal Cannula 2 02/02/25 22:31 02/02/25 19:48 Room Air 02/02/25 19:45 Room Air Laboratory Results reviewed cbc with stable anemia reviewed chemistry with stable renal function despite diuresis PG Care Time/CCT Total # of Minutes Spent Total Time Spent with Patient: Total time spent is greater than 50% in coordination of care (as documented) at patient's floor/unit and/or counseling patient: Coding Level of Care Code 98987 SUB INP/OBS CARE 350MIN Diagnoses (HFpEF) heart failure with preserved ejection fraction I50.30 Atrial fibrillation, permanent I48.21 Type 2 diabetes mellitus treated with insulin E11.9; Z79.4 Iron deficiency anemia D50.9
[2025-02-03 08:05] LABS: Hematocrit (blood only) 26.6 % (37.0-47.0); Hemoglobin 8.6 g/dL (12.0-16.0); Mean Corpuscular Hemoglobin 29.4 pg (25.0-34.0); Mean Corpuscular Volume 90.8 fL (80.0-100.0); Platelet Count 200 K/uL (130-400); RDW Standard Deviation 53.9 fL (36.4-46.3); Red Blood Count 2.93 M/uL (4.20-5.40); White Blood Count 7.20 K/ul (4.8-10.8)
[2025-02-03] MEDS: FLUTICASONE/VILANTEROL 200/25MCG 14 PUFFS/INHALER INH SCH (08:20)
[2025-02-03] MEDS: FERROUS SULFATE 325 MG TAB PO SCH (08:22)
[2025-02-03] MEDS: POTASSIUM CHLORIDE 10 MEQ TABCR PO SCH (08:26)
[2025-02-03 08:31] LABS: Anion Gap 9.0 (3-11); Blood Urea Nitrogen 35.0 mg/dl (6-23); Calcium 9.5 mg/dl (8.6-10.3); Carbon Dioxide 34.0 mmol/L (21-32); Chloride 95.0 mmol/L (98-107); Creatinine Clr Calc Pharmacy 24.0 ml/min; Glucose 99.0 mg/dl (70-99(Fasting)); Magnesium 2.0 mg/dl (1.7-2.4); Potassium 3.5 mmol/L (3.5-5.1); Sodium 138.0 mmol/L (136-145)
[2025-02-03] MEDS: MECLIZINE HCL 25 MG TAB PO PRN (11:40)
[2025-02-03] MEDS: REMOVE CLONIDINE PATCH SCH (13:21)
--- NOTE | 2025-02-03 14:57 | Cardiology Consultation ---
Date of Consultation February 03, 2025 Assessment & Plan (1) (HFpEF) heart failure with preserved ejection fraction: -Suspect etiology of her decompensation is dietary indiscretion with salt. -Atrial fibrillation could be playing a role. -Anemia could also be playing a role. -Agree with intravenous torsemide and continuation of oral metolazone. -Long discussion with the patient and family regarding daily weights and sliding scale diuretics. -Recommend an evaluation in our CHF clinic. (2) Atrial fibrillation, permanent: -Continue rate control and long-term anticoagulation. History of Present Illness Attending Physician: Prince Stack MD History of Present Illness Mrs. Clark is an 84-year-old female admitted yesterday and acute on chronic diastolic CHF. This consultation was ordered to assist in her cardiac management. Of note, the patient is typically followed by Dr. Champion in the outpatient setting. The patient was in her usual state of health until approximately 1 week prior to presentation. She was noticing progressive exertional dyspnea which occurred at rest on the day of presentation. Evaluation in the emergency room noted decompensated CHF. She was started on intravenous diuretics and has responded well. She has a longstanding history of chronic diastolic CHF along with permanent atrial fibrillation. She was hospitalized from December 10 through at the [facility] with bradycardia, shock, hyperkalemia, and renal insufficiency. She eventually required intubation and was transferred to [facility] in [place]. Review of her notes from the [facility] noted dietary indiscretion with salt as the etiology of her decompensation. Specifically, she was living on "TV dinners." She did have a normal Lexiscan performed in September 2024. An echocardiogram performed on December 31 through the [facility] system noted normal left ventricular systolic function with ejection fraction of 60 to 65%. There was mild to moderate mitral regurgitation. Currently, patient is resting comfortably in bed without complaints. Past medical and surgical history 1. Hypertension 2. Mild LVH 3. Hypercholesterolemia 4. Permanent atrial fibrillation 5. Chronic diastolic CHF 6. Mild to moderate mitral digitation 7. [id number] 8. Diabetes 9. GERD 10. Gout 11. Iron deficiency anemia 12. L1 compression fracture 13. Vitamin D deficiency 14. Psoriasis 15. Intraocular lens implants 16. Breast reduction surgery 17. Appendectomy 18. Tonsillectomy 19. Cholecystectomy Social history and lives with her in [place], [place] No tobacco or alcohol Family history Noncontributory Review of systems A 10 point review of system was undertaken and negative except that described above. Allergies Allergy/AdvReac Type Severity Reaction Status Date / Time oxycodone Allergy Severe Generalized Verified 01/12/25 14:41 rash sulfamethoxazole Allergy Severe weakness, Verified 01/12/25 14:41 [From Bactrim] hallucinations trimethoprim [From Bactrim] Allergy Severe weakness, Verified 01/12/25 14:41 hallucinations adhesive tape Allergy Intermediate Rash Verified 01/12/25 14:41 gabapentin [From Neurontin] Allergy Intermediate leg Verified 01/12/25 14:41 swelling lisinopril Allergy Intermediate Rash Verified 01/12/25 14:41 fentanyl Allergy Unknown Unknown Verified 01/12/25 14:41 Home Medications Medication Instructions Recorded Confirmed Type blood sugar diagnostic (MoPubTouch #100 ea 02/09/20 02/02/25 Rx Ultra Blue Test Strip) lancets 33 gauge (MoPubTouch Delica #100 ea 02/09/20 02/02/25 Rx Lancets) nitroglycerin 0.4 mg sublingual 0.4 mg sublingual Q5M PRN chest 02/09/20 02/02/25 Rx tablet (Nitrostat) pain #20 tabs blood sugar diagnostic #50 ea 05/10/20 02/02/25 Rx naloxone 4 mg/actuation nasal spray 4 mg intranasal Q2M #2 ea 07/11/21 02/02/25 Rx multivitamin (Daily Multi-Vitamin 1 tab PO DAILY #90 tabs 02/12/23 02/02/25 Rx tablet) triamcinolone acetonide 0.1 % 1 applic topical BID PRN skin 05/04/23 02/02/25 Rx topical cream irritation #453.6 grams albuterol sulfate 90 mcg/actuation 2 puff inhalation Q4H PRN 05/14/23 02/02/25 Rx aerosol inhaler shortness of breath or wheezing #8.5 grams Wheelchair (Manual) #1 ea 08/30/23 02/02/25 Rx docusate sodium 100 mg capsule 100 mg PO DAILY PRN Constipation 09/28/23 02/02/25 History (Colace) lorazepam 0.5 mg tablet 0.5 mg PO DAILY PRN anxiety #7 tabs 11/01/23 02/02/25 Rx metolazone 2.5 mg tablet 2.5 mg PO 3XWK 11/02/23 02/02/25 History omeprazole 40 mg capsule,delayed 40 mg PO QAM #90 caps 12/12/23 02/02/25 Rx release atorvastatin 40 mg tablet 40 mg PO QPM #90 tabs 03/05/24 02/02/25 Rx 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,deckhand clam dredge,cont #1 ea 04/25/24 02/02/25 Rx (FreeStyle Ledy 3 [place]) meclizine 25 mg tablet 25 mg PO BID vertigo 04/25/24 02/02/25 History nystatin 100,000 unit/gram topical 1 applic topical BID #30 grams 04/25/24 02/02/25 Rx cream colchicine 0.6 mg capsule 0.6 mg PO BID #60 caps 04/28/24 02/02/25 Rx 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 sensor (FreeStyle 04/30/24 02/02/25 History Ledy 3 Sensor device) pen needle, diabetic 32 gauge x #100 ea 05/06/24 02/02/25 Rx 5/32" duloxetine 60 mg capsule,delayed 60 mg PO HS #90 caps 05/14/24 02/02/25 Rx release mupirocin 2 % topical ointment 1 applic topical BID #22 grams 05/21/24 02/02/25 Rx mecobalamin (vitamin B12) 1,000 1,000 mcg sublingual DAILY #30 tabs 06/17/24 02/02/25 Rx mcg disintegrating tablet,sublingual cyanocobalamin (vitamin B-12) 1,000 mcg PO DAILY #30 caps 06/18/24 02/02/25 Rx 1,000 mcg capsule clonidine HCl 0.2 mg tablet 0.2 mg PO .COMPLEX #270 tabs 06/25/24 02/02/25 Rx disposable gloves #200 ea 07/16/24 02/02/25 Rx Incontinence pads, medium #60 ea 07/17/24 02/02/25 Rx Rubber Gloves, medium #1 ea 07/17/24 02/02/25 Rx Wipes #200 ea 07/17/24 02/02/25 Rx adult brief, s/m, disposable #150 ea 07/17/24 02/02/25 Rx chucks #30 ea 07/17/24 02/02/25 Rx apixaban 2.5 mg tablet (Eliquis) 2.5 mg PO BID #60 tabs 07/28/24 02/02/25 Rx diclofenac sodium 1 % topical gel 4 g topical QID PRN L knee pain 08/20/24 02/02/25 Rx #200 grams allopurinol 100 mg tablet 100 mg PO QAM 09/04/24 02/02/25 History cholecalciferol (vitamin D3) 25 1,000 unit PO BID 09/04/24 02/02/25 History mcg (1,000 unit) capsule (Vitamin D3) ibandronate 150 mg tablet 150 mg PO MONTHLY 09/04/24 02/02/25 History metoprolol tartrate 100 mg tablet 150 mg (1.5 x 100 mg) PO BID #270 11/17/24 02/02/25 Rx tabs acetaminophen 325 mg tablet 650 mg PO Q6H PRN Pain 12/22/24 02/02/25 History cholestyramine 4 gram oral powder 4 g PO DAILY 12/22/24 02/02/25 History (Cholestyramine Light) diltiazem HCl 240 mg 240 mg PO QAM 01/06/25 02/02/25 History capsule,extended release 24 hr ferrous sulfate 325 mg (65 mg 325 mg PO Q OTHER DAY 01/06/25 02/02/25 History iron) tablet (Anita-Time) insulin glargine 100 unit/mL (3 14 unit (0.14 mL) subcut HS #15 mL 01/06/25 02/02/25 Rx mL) subcutaneous pen (Lantus Solostar U-100 Insulin) potassium chloride 10 mEq 40 meq PO DAILY 01/06/25 02/02/25 History capsule,extended release torsemide 20 mg tablet 100 mg PO DAILY 01/06/25 02/02/25 History magnesium oxide 400 mg PO TID #90 caps 01/12/25 02/02/25 Rx hydralazine 50 mg tablet 50 mg PO QID #120 tabs 01/19/25 02/02/25 Rx fluticasone 500 mcg-salmeterol 50 1 inh inhalation BID #60 ea 02/02/25 Rx mcg/dose blistr powdr for inhalation hydrocodone 5 mg-acetaminophen 325 1 tab PO QID PRN pain M17.0 #120 02/02/25 Rx mg tablet tabs Patient History Medical History (Updated 02/02/25 @ 18:18 by Davion Canales MD) Loose left total knee arthroplasty Acute kidney injury Bilateral primary osteoarthritis of knee Osteoarthritis of left knee Sacral fracture (04/02/24) Sacral/pelvic fracture from a fall- no surgery needed No current issues Compression deformity of vertebra With history of L1 compression fracture T10 compression fracture (new from 11/01/23) noted on 04/02/24 CT scan Ambulatory dysfunction uses walker or WC (no falls since 03/2024) 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 History of stroke 2001 > no residual issues GERD (gastroesophageal reflux disease) well controlled and stable Asthma rare res inh use breathing stable and controlled Controlled type 2 diabetes mellitus with diabetic neuropathy Surgical History (Updated 10/22/24 @ 11:37 by Dustin Richard MD) Status post left knee replacement Hx of oral surgery (01/16/23) Excision of Ulcer and Fibroma of Right Lower Lip(Right) - Peter Call, DMD History of colonoscopy History of tooth extraction Hx of breast reduction, elective History of surgery on arm nerve surgery left History of lumbar surgery no fusion Hx of cervical spine surgery ROM up and down is very limited per pt > unsure of numbers History of cardiac cath remote hx > no stents History of cataract surgery bilateral History of tonsillectomy and adenoidectomy History of appendectomy H/O right hemicolectomy History of hysterectomy History of cholecystectomy Family History Father Myocardial infarction Hx of CABG Mother Alzheimer disease Denies family history of Ovarian cancer Prostate cancer Breast cancer Colorectal cancer Social History Smoking Status: Never smoker Second Hand Exposure: No; Do You Dip or Chew Tobacco: No; Tobacco Cessation Education Requested by Patient: No Hx Alcohol Use: No Hx Substance Use: No Preferred Language: Kittitian Communication Ability: Effective Visual Impairment: Partially Limited Hearing Ability: Normal Ear Nose Throat Surgeon Required: No Beliefs That Will Affect Care: None marital status: Current Living Situation: Alone Current Living Situation Comment: 2 dogs current occupational status: retired Feels Safe at Home: Yes Safety Concerns: Feels Safe At This Time Childhood Exposure to Second-Hand Smoke: Yes caffeine: Yes (soda - coke) Dental Care, Regularly: Yes Physical Activity Frequency: 3-4 Times per Week Seatbelt Use: always Sunscreen Use: Yes Do you think of yourself as: straight/heterosexual Assistive Devices: Walker Physical Exam Physical Exam: In general this is a well-developed well-nourished white female in no acute distress. HEENT exam is negative. Neck reveals normal carotid upstrokes without bruits. Jugular venous pressure is flat at 90. There is no thyromegaly. Cardiovascular exam reveals an irregularly irregular rhythm with distant heart sounds. No obvious murmurs. Lungs are clear without rales, rhonchi, or wheezes. Abdomen is soft without bruits. Extremities reveal intact radial artery and posterior tibial pulses bilaterally. There is no peripheral edema. Results & Data Vital Signs (Past 12 Hours) Vital Signs Temp Pulse Pulse Resp BP BP Pulse Ox 02/03/25 13:21 36.9 C 94 H 19 136/99 95 02/03/25 08:00 36.9 C 91 H 26 H 134/67 99 02/03/25 08:00 02/03/25 07:08 89 02/03/25 07:00 87 18 147/87 H 98 02/03/25 06:00 84 18 153/93 H 98 02/03/25 05:30 84 18 97 02/03/25 05:00 75 18 144/97 H 97 02/03/25 04:00 80 17 132/76 97 02/03/25 03:00 88 17 127/95 97 Pulse Ox O2 Del Method O2 Del Method O2 Flow Rate O2 Flow Rate 02/03/25 13:21 Nasal Cannula 2 02/03/25 08:00 Nasal Cannula 2 02/03/25 08:00 99 Nasal Cannula 2 02/03/25 07:08 02/03/25 07:00 Nasal Cannula 1 02/03/25 06:00 Nasal Cannula 1 02/03/25 05:30 Nasal Cannula 1 02/03/25 05:00 Nasal Cannula 1 02/03/25 04:00 Nasal Cannula 1 02/03/25 03:00 Nasal Cannula 1 Laboratory Results CBC notes a hemoglobin 8.6, hematocrit 26.6, white count 7.2, platelet count of 200,000. Electrolytes noted sodium 138, potassium 3.5, chloride 95, bicarb 34, BUN 35, creatinine 1.56, and a glucose of 99. Magnesium level is normal at 2.0. High-sensitivity troponin normal at 7.0. Diagnostic Findings EKG on presentation noted atrial fibrillation with a rapid ventricular response. There is left axis deviation and nonspecific T wave abnormality. Chest x-ray notes cardiomegaly and diffuse interstitial edema. PG Care Time/CCT Total # of Minutes Spent Total Time Spent with Patient: Total time spent is greater than 50% in coordination of care (as documented) at patient's floor/unit and/or counseling patient: Coding Level of Care Code 48652 INT INP/OBS CARE 375MIN Diagnoses (HFpEF) heart failure with preserved ejection fraction I50.30 Atrial fibrillation, permanent I48.21
[2025-02-03] MEDS: CHECK CLONIDINE PATCH PLACEMENT SCH (16:07)
[2025-02-03] MEDS: NYSTATIN POWDER 15GM BTL EXT SCH (20:41)
[2025-02-04 06:52] LABS: Hematocrit (blood only) 24.4 % (37.0-47.0); Hemoglobin 7.9 g/dL (12.0-16.0); Mean Corpuscular Hemoglobin 29.3 pg (25.0-34.0); Mean Corpuscular Volume 90.4 fL (80.0-100.0); Platelet Count 195 K/uL (130-400); RDW Standard Deviation 52.2 fL (36.4-46.3); Red Blood Count 2.70 M/uL (4.20-5.40); White Blood Count 6.09 K/ul (4.8-10.8)
[2025-02-04 07:27] LABS: EAG mg/dl 137 mg/dL; EAG mmol/L 7.6 mmol/L; HA1C 6.4 % (<5.7)
[2025-02-04 07:33] LABS: Anion Gap 8.0 (3-11); Blood Urea Nitrogen 32.0 mg/dl (6-23); Calcium 8.9 mg/dl (8.6-10.3); Carbon Dioxide 34.0 mmol/L (21-32); Chloride 94.0 mmol/L (98-107); Creatinine Clr Calc Pharmacy 25.7 ml/min; Glucose 122.0 mg/dl (70-99(Fasting)); Iron 29.0 mcg/dl (35-150); Magnesium 1.9 mg/dl (1.7-2.4); Potassium 3.2 mmol/L (3.5-5.1); Sodium 136.0 mmol/L (136-145)
--- NOTE | 2025-02-04 07:58 | Hospitalist Progress Note ---
Date of Service February 04, 2025 Assessment & Plan (1) (HFpEF) heart failure with preserved ejection fraction: (2) Atrial fibrillation, permanent: (3) Type 2 diabetes mellitus treated with insulin: (4) Iron deficiency anemia: Plan 84-year-old female with recent admissions to [facility] 1 including intubation for heart failure preserved ejection fraction exacerbation/ BRASH syndrome who presents with 1 week history of escalating shortness of breath found to be with pulmonary congestive changes consistent with heart failure preserved ejection fraction exacerbation. Patient and family deny dietary medication indiscretion. In the emergency department the patient had negative viral screen for COVID influenza and RSV. X-ray was consistent with heart failure not pneumonia. #Acute exacerbation of heart failure preserved ejection fraction. Given complexities of the patient with most recent frequent hospitalizations being on multiple cardiac medications including Cardizem metoprolol clonidine hydralazine (recently stopping losartan) and with a history of preserved ejection fraction consult cardiology will consider multiday event monitor and engagement with Heart failure clinic. Her home regimen is complex, consider if need to change clonidine to transdermal and ? if hydralazine qid is needed as does not have reduced EF to benefit from afterload reduction, can we spironolactone to try to stop hydralazine to make compliance easier. will need to choose home diuretic dose. Pt feels she needs home oxygen will start with nocturnal oxymetry test #Permanent atrial fibrillation. Continue rate controlling agents with Cardizem and metoprolol and anticoagulated with apixaban #Insulin requiring diabetes. Uncontrolled. Patient states she typically is only on Lantus insulin at home. To this end we will keep her Lantus and added sliding scale insulin. Will check a hemoglobin A1c. She will continue to her sridhar meter. Will hold any oral medications at this time. Chronic Kidney disease stage 3 #Iron deficiency anemia. The patient remains with a hemoglobin of 8.3. She typically is on supplements of both B12 and iron at home. Will check an iron level iron-binding capacity and B12 level in the morning of 02/04. #DVT prevention is Eliquis therapy. Goals of care discussion was had emergency department. The patient and her son feel the patient should be a full code which states to continue with aggressive treatment. Admission and Anticipated Discharge Date Admission Date: February 02, 2025 Results & Data Results & Data Vital Signs (Past 12 Hours) Vital Signs Temp Pulse Pulse Pulse Resp BP BP 12/31/25 07:25 97.7 F 92 H 17 134/83 02/04/25 03:46 50 L 02/04/25 03:20 97.7 F 84 16 123/79 02/04/25 00:00 02/03/25 23:25 97.5 F L 89 16 109/67 02/03/25 22:29 79 02/03/25 22:14 81 Pulse Ox Pulse Ox Pulse Ox O2 Del Method O2 Del Method O2 Del Method FiO2 02/04/25 07:25 94 Room Air 02/04/25 03:46 93 Room Air 21 02/04/25 03:20 Room Air 02/04/25 00:00 94 Room Air 02/03/25 23:25 92 Room Air 02/03/25 22:29 02/03/25 22:14 95 Room Air 21 PG Care Time/CCT Total # of Minutes Spent Total Time Spent with Patient: Total time spent is greater than 50% in coordination of care (as documented) at patient's floor/unit and/or counseling patient: Coding Diagnoses (HFpEF) heart failure with preserved ejection fraction I50.30 Atrial fibrillation, permanent I48.21 Type 2 diabetes mellitus treated with insulin E11.9; Z79.4 Iron deficiency anemia D50.9
[2025-02-04] MEDS: BUMETANIDE 1 MG TAB PO SCH (08:24)
[2025-02-04] MEDS: SPIRONOLACTONE 25 MG TAB PO SCH (08:24)
[2025-02-04] MEDS: POTASSIUM CHLORIDE CRTAB 20 MEQ TABCR PO ONE (11:32)
[2025-02-04 12:26] VITALS: BP 113/76; PULSE 78; RESP 18; TEMP 97.5
--- NOTE | 2025-02-04 13:18 | Discharge Summary ---
Discharge Summary Date of Service February 04, 2025 Principal Dx & Hospital Course #1 = Principal Diagnosis (1) (HFpEF) heart failure with preserved ejection fraction: (2) Atrial fibrillation, permanent: (3) Type 2 diabetes mellitus treated with insulin: (4) Iron deficiency anemia: Plan 84-year-old female with recent admissions to [facility] including intubation for heart failure preserved ejection fraction exacerbation/ BRASH syndrome who presents with 1 week history of escalating shortness of breath found to be with pulmonary congestive changes consistent with heart failure preserved ejection fraction exacerbation. Patient and family deny dietary medication indiscretion. In the emergency department the patient had negative viral screen for COVID influenza and RSV. X-ray was consistent with heart failure not pneumonia. #Acute exacerbation of heart failure preserved ejection fraction. Given complexities of the patient with most recent frequent hospitalizations being on multiple cardiac medications including Cardizem metoprolol clonidine hydralazine (recently stopping losartan) and with a history of preserved ejection fraction consult cardiology will consider multiday event monitor and engagement with Heart failure clinic. Her home regimen is complex, will have clonidine dose changed to once a week patch will stop hydralazine use one dose spironolactone in am and check labs in 4 days reinforced salt restriction will try to connect with heart failure clinic #Permanent atrial fibrillation. Continue rate controlling agents with Cardizem and metoprolol and anticoagulated with apixaban #Insulin requiring diabetes. return to home regimen of one dose lantus daily # Chronic Kidney disease stage 3 #Iron deficiency anemia. The patient remains with a hemoglobin of 8.3. She typically is on supplements of both B12 and iron at home. iron remains slighlty low will continue to recommend po oral intake this pt is a high readmission risk Notes For Next Care Provider given multiple readmissions for heart failure, will try to streamline medications to help with compliance gave bedside salt restriction education need to connect with Heart failure clinic Is supposed to have outpt blood drawn in less than a week Admission HPI Per Admitting Provider 84-year-old female recently discharged from [facility] for exacerbation of heart failure preserved ejection fraction, severe pulmonary hypertension, presents with increasing shortness of breath over the last 1 week and confusion at night. Patient has chronic bilateral arm and lower back pain. Previously prescribed hydrocodone. She has a history of permanent atrial fibrillation and that in the past has been difficult to control. She follows with Dr. Champion and primary care Dr. Richard Patient denies any dietary or medication indiscretion says she just began feeling short of breath. The patient cannot sense when she is with having tachycardia from her A-fib In the emergency room she is in rate controlled atrial fibrillation no current of injury troponin was negative and chest x-ray was consistent with cardiomegaly and bilateral pulmonary edema. She was given 4 mg of Bumex intravenously Discharge Exam Constitutional Heart failure is resolved, lungs are clear except left base Discharge Plan Discharge Items Patient Disposition: Home - Self-Care Reason For Visit: ACUTE EXAC HFpEF Discharge Diagnosis: heart failure Condition on Discharge: Fair Activity: Resume your previous activity Non-emergency contact: Primary Care Provider and Punch Operator Call non-emergency contact if: your symptoms worsen Follow-up/Referrals: Dustin Richard MD [Primary Care Provider] - Queenie Avery PA-C [Physician Insurance Sales Associate] - Diet: Low Sodium (2gm) Ambulatory Orders: Basic Metabolic Panel (Routine) Timeframe: 4 Days Location: Determined by Patient Ordered By: Prince Antunez Attending Provider Instructions: In an effort to try to reduce you coming back to the hospital we have made some changes to your medication list We are going to substitute a clonidine patch for your oral clonidine to try to have you take less pills a day. The patch is placed on once a week. Be sure to write the date on the patch so that you know when its time to change it We have eliminated your hydralazine medicine which you take 4 times a day and substitute 1 dose of spironolactone in the morning. Spironolactone can affect your potassium and kidney function so it is important you have blood work drawn next week We are going to keep the other medications the same however 1 thing you need to keep an eye on is your body weight. Your body weight is an indication if you are retaining fluid. There are some instructions included below about what changes in your weight may mean I am going to get you connected with Queenie sotomayor in the heart failure clinic to be someone you can contact if you have changes in your body weight for instructions on what to do with your water medicine Harmony Brancher Provider Instructions: Call 911 and go to the Emergency Room if: * You have tightness or pain in your chest that does not go away with rest or Nitroglycerin * You are very short of breath even with rest Call your doctor if any of the following symptoms or problems start or get worse: * Shortness of breath or difficulty breathing * Wake up at night short of breath * Chest pain * Cough * Swelling of your hands, fee, or legs * More fatigued or tired with your normal activity * Palpitations - sudden fast heart beats WEIGHT * Weigh yourself every morning after using the bathroom. * Use the same scale. * Wear the same amount of clothing. * Write your weight down on your chart. * Call your doctor if you gain more than 2-3 pounds in 1-2 days. MEDICATIONS * Use this discharge instruction sheet for instructions. * Take your medications at the time your doctor ordered. * Do not skip a dose of your medicines. * If you miss a dose of medicine, take as soon as possible, but DO NOT DOUBLE A DOSE. * Read your medicine information when you get home. * Know all of the side effects of your medicine. * Call your doctor's office if you have any side effects. * Be sure all of your doctors know what medicine and herbs you take (including cold, flu, and herbal medicine). * Pain Medicine: If you do not get relief from your pain, please call your doctor for help. Take the following with you to your follow-up doctor appointments: * Weight Chart * Medication List * List of questions Do not drink excessive alcohol, beer or wine. Pending Studies at Discharge: No Stand-Alone Forms: My [facility] Fluid Stone, Smoking Cessation Medications and DC Order Prescriptions: New spironolactone 25 mg Tablet 25 mg PO QAM Qty: 30 3RF clonidine [[id number]] 0.3 mg/24 hr patch weekly 1 patch transdermal Q7D Qty: 4 3RF Continued (DME) OneTouch Ultra Blue Test Strip Strip See Dose Instructions .ROUTE .MEDSUPPLY Qty: 100 3RF Dose Instruction: As directed Rx Instructions: As directed-twice daily (DME) lancets [OneTouch Delica Lancets] 33 gauge misc See Dose Instructions .ROUTE .MEDSUPPLY Qty: 100 3RF Dose Instruction: As directed Rx Instructions: As directed-twice daily nitroglycerin [Nitrostat] 0.4 mg tablet, sublingual 0.4 mg SL Q5M PRN (Reason: chest pain) Qty: 20 0RF Rx Instructions: do not exceed 3 doses per episode naloxone 4 mg/actuation spray,non-aerosol 4 mg intranasal Q2M Qty: 2 2RF Rx Instructions: spray 1 dose into ONE nostril; alternate nostrils w each dose until help arrives multivitamin [Daily Multi-Vitamin] Tablet 1 tab PO DAILY Qty: 90 3RF albuterol sulfate 90 mcg/actuation HFA aerosol inhaler 2 puff inhalation Q4H PRN (Reason: shortness of breath or wheezing) Qty: 8.5 5RF (DME) Wheelchair (Manual) Device See Rx Instructions .Route Qty: 1 1RF Rx Instructions: As directed lorazepam 0.5 mg tablet 0.5 mg PO DAILY PRN (Reason: anxiety) Qty: 7 0RF Rx Instructions: Use with caution with hydrocodone since the 2 together can be severely sedating. omeprazole 40 mg capsule,delayed release(DR/EC) 40 mg PO QAM Qty: 90 3RF atorvastatin 40 mg tablet 40 mg PO QPM Qty: 90 3RF (DME) FreeStyle Ledy 3 Sensor Device See Rx Instructions .Route Rx Instructions: As directed (DME) pen needle, diabetic 32 gauge x 5/32" needle See Dose Instructions .ROUTE .MEDSUPPLY Qty: 100 11RF Dose Instruction: As directed Rx Instructions: As directed-twice daily mecobalamin (vitamin B12) 1,000 mcg tablet,disintegrating 1,000 mcg sublingual DAILY Qty: 30 0RF Rx Instructions: place tablet under tongue and allow to dissolve for at least30 secs before swallowing cyanocobalamin (vitamin B-12) 1,000 mcg capsule 1,000 mcg PO DAILY Qty: 30 0RF (DME) disposable gloves Misc See Rx Instructions .Route Qty: 200 11RF Rx Instructions: As directed (DME) chucks See Rx Instructions .Route .MEDSUPPLY Qty: 30 11RF Rx Instructions: As directed (DME) Incontinence pads, medium See Rx Instructions .Route .MEDSUPPLY Qty: 60 11RF Rx Instructions: As directed (DME) Wipes See Rx Instructions .Route .MEDSUPPLY Qty: 200 11RF Rx Instructions: As directed (DME) Rubber Gloves, medium See Rx Instructions .Route .MEDSUPPLY Qty: 1 11RF Rx Instructions: As directed (DME) adult brief, s/m, disposable See Rx Instructions .Route .MEDSUPPLY Qty: 150 11RF Rx Instructions: Use up to 5 daily as needed. Eliquis 2.5 mg tablet 2.5 mg PO BID Qty: 60 5RF metoprolol tartrate 100 mg tablet 150 mg PO BID Qty: 270 3RF insulin glargine [Lantus Solostar U-100 Insulin] 100 unit/mL (3 mL) insulin pen 14 unit SUBCUT HS Qty: 15 11RF ferrous sulfate [Anita-Time] 325 mg (65 mg iron) tablet 325 mg PO Q OTHER DAY fluticasone propion-salmeterol 500-50 mcg/dose blister with device 1 inh inhalation BID Qty: 60 11RF Rx Instructions: Rinse mouth after usage. hydrocodone-acetaminophen 5-325 mg tablet 1 tab PO QID PRN (Reason: pain M17.0) Qty: 120 0RF (DME) blood sugar diagnostic Strip See Rx Instructions .ROUTE .MEDSUPPLY Qty: 50 11RF Rx Instructions: Qwiki, check once daily.E11.40 mupirocin 2 % ointment 1 applic topical BID Qty: 22 5RF Rx Instructions: to R great toe. acetaminophen 325 mg tablet 650 mg PO Q6H PRN (Reason: Pain) Cholestyramine Light 4 gram powder 4 g PO DAILY Rx Instructions: Take at bedtime and large glass of fluid. Per patient she is only taking it once a day diltiazem HCl 240 mg capsule,extended release 24hr 240 mg PO QAM potassium chloride 10 mEq capsule, extended release 40 meq PO DAILY magnesium oxide 400 mg magnesium capsule 400 mg PO TID Qty: 90 0RF triamcinolone acetonide 0.1 % cream 1 applic topical BID PRN (Reason: skin irritation) Qty: 453.6 3RF duloxetine 60 mg capsule,delayed release(DR/EC) 60 mg PO HS Qty: 90 3RF (DME) FreeStyle Ledy 3 [place] Misc See Rx Instructions .Route Qty: 1 0RF Rx Instructions: As directed, E11.9, Z79.4 nystatin 100,000 unit/gram cream 1 applic topical BID Qty: 30 5RF diclofenac sodium 1 % gel 4 g topical QID PRN (Reason: L knee pain) Qty: 200 5RF Rx Instructions: apply to single knee, ankle, foot; for foot includes sole/toes/top of foot allopurinol 100 mg tablet 100 mg PO QAM cholecalciferol (vitamin D3) [Vitamin D3] 25 mcg (1,000 unit) capsule 1,000 unit PO BID ibandronate 150 mg tablet 150 mg PO MONTHLY Patient Comments: pt unsure if taking at this time 09/04/24 Rx Instructions: Take first thing in the morning with large glass of plain water. Nothing else to eat or drink and no other medications for an hour after taking it. Mail order is asking for 3 with 3 refills docusate sodium [Colace] 100 mg Capsule 100 mg PO DAILY PRN (Reason: Constipation) Changed colchicine 0.6 mg capsule 0.6 mg PO BID PRN (Reason: gout flare) Qty: 60 3RF Rx Instructions: For gout attack. Stop it and call if it causes diarrhea torsemide 20 mg tablet 60 mg PO DAILY Qty: 0 0RF meclizine 25 mg tablet 25 mg PO BID PRN (Reason: vertigo) Qty: 0 0RF Held metolazone 2.5 mg tablet 2.5 mg PO 3XWK Hold Instructions: Provider's Order Rx Instructions: Take 2.5 mg M// Discontinued clonidine HCl 0.2 mg tablet 0.2 mg PO .COMPLEX Qty: 270 3RF Rx Instructions: 0.2 mg orally 1 in am and 2 in pm; hydralazine 50 mg tablet 50 mg PO QID Qty: 120 11RF Discharge Orders: Discharge Order (Routine); Ordered 02/04/25 Ordered By: Prince Stack Admission Data Admit Date/Time: 02/02/25 13:28 Attending Provider: Prince Stack Admit Provider: Prince Stack Primary Care Provider: Dustin Richard Other Providers: Prince Stack; Riky Jones Hospital Stay Data Consultations 02/02/25 12:44 ED Decision to Admit Stat 02/02/25 14:38 Consult Cardiology Routine Pending Results Patient Have Any Pending Studies at Discharge: No Discharge Instructions Given to Patient (Per Discharging Provider) In an effort to try to reduce you coming back to the hospital we have made some changes to your medication list We are going to substitute a clonidine patch for your oral clonidine to try to have you take less pills a day. The patch is placed on once a week. Be sure to write the date on the patch so that you know when its time to change it We have eliminated your hydralazine medicine which you take 4 times a day and substitute 1 dose of spironolactone in the morning. Spironolactone can affect your potassium and kidney function so it is important you have blood work drawn next week We are going to keep the other medications the same however 1 thing you need to keep an eye on is your body weight. Your body weight is an indication if you are retaining fluid. There are some instructions included below about what changes in your weight may mean I am going to get you connected with Queenie sotomayor in the heart failure clinic to be someone you can contact if you have changes in your body weight for instructions on what to do with your water medicine Total Time Total Time Spent Total Time Spent (In Minutes): I personally have spent greater than 30 minutes of time on the patient discharge today including review of tests, documentation, exam, and discussing treatment plan moving forward with the patient. Coding Level of Care Code 98186 INP/OBS DISCH >30 MIN Diagnoses (HFpEF) heart failure with preserved ejection fraction I50.30 Atrial fibrillation, permanent I48.21 Type 2 diabetes mellitus treated with insulin E11.9; Z79.4 Iron deficiency anemia D50.9
[2025-02-04 16:44] VITALS: O2SAT 95
== END 2025-02-04 16:44 | disposition home or self-care (01) | DRG 291 ==
LOC: ED 10:39 → EDINP 13:28 → 2S 02-03 18:48